=== PATIENT | female | born 1945 | race Caucasian/White ===

== ENCOUNTER → 2016-12-05 | Outpatient (CLI) | payer MEDICARE ==
[2016-09-04 00:10] VITALS: BP 160/77
[~2016-12-05] MED LIST: ALPR1TAB6 PO; BARIUM SULFATE 40% 148 GM PWD PO ONE; BARIUM SULFATE 60% 355 ML SUSP PO ONE; CEPH-264 PO; FLUO20CA8 PO; FLUO40CA2 PO; METF500T4 PO; THYR120T PO
--- NOTE | 2016-12-05 14:07 | RAD ---
EXAM: Modified barium swallow. HISTORY: Dysphagia. FINDINGS: Barium contrast material was administered orally and multiple consistencies under the direction of speech pathology, and followed in its course during swallowing with video fluoroscopy. A fluoroscopic image and multiple videofluoroscopic clips were obtained. Fluoroscopy time 2.4 minutes. There was transient laryngeal penetration with thin liquids, worse with a straw. There was no gross aspiration with any consistency. IMPRESSION: 1. Transient laryngeal penetration with thin liquids. Refer to the full report by speech pathology for more detail.
== END | disposition home or self-care (01) ==
LOC: RAD 12:53
PROVIDERS: ATTEND Family Medicine
DX: R13.10 Dysphagia, unspecified (principal)
CPT/HCPCS: 74230; 92611; G8996; G8997; G8998

== ENCOUNTER 2017-05-17 21:03 | Emergency (ER) | payer MEDICARE ==
[~2017-05-17 21:03] MED LIST changes: -BARIUM SULFATE 40% 148 GM PWD PO ONE; -BARIUM SULFATE 60% 355 ML SUSP PO ONE
[2017-05-17 21:24] LABS: BASO % 0 % (0-3); EOS % 3 % (0-3); HEMATOCRIT 43.8 % (36.0-47.0); HEMOGLOBIN 14.7 g/dL (12.0-15.5); LYMPH # 2.3 x10^3/uL (1.0-4.8); LYMPH % 32 % (24-48); MEAN CORPUSCULAR HEMOGLOBIN 31 pg (25-35); MEAN CORPUSCULAR HGB CONC 34 g/dL (31-37); MEAN CORPUSCULAR VOLUME 91 fL (79-100); MONO % 6 % (0-9); NEUT % 59 % (31-73); PLATELET COUNT 407 x10^3/uL (140-400); RED BLOOD COUNT 4.82 x10^6/uL (3.50-5.40); RED CELL DISTRIBUTION WIDTH 13.7 % (11.5-14.5); WHITE BLOOD COUNT 7.2 x10^3/uL (4.0-11.0)
--- NOTE | 2017-05-17 21:26 | PHYS DOC ---
Past Medical History Past Medical History: Anxiety, Cancer, Diabetes-Type II, Other Additional Past Medical Histor: Thyroid cancer Past Surgical History: Other Additional Past Surgical Histo: Thyroid Alcohol Use: None Drug Use: None Adult General Chief Complaint Chief Complaint: NAUSEA/VOMITING/DIARRHA HPI HPI Patient is a 71 year old female who presents with nausea, vomiting and diarrhea. Started on Sunday with "explosive" diarrhea; multiple stools but patient has taken immodium so the number of stools have tapered off. Had vomiting that is "chronic" and no different than usual. No hemetemsis. No blood in stool. No fever. She has had no chest pain but SOA, coughing and "my heart beating very fast". No syncope. She is followed by Dr Cutler and Dr durant. Review of Systems Review of Systems Constitutional: Denies fever or chills Eyes: Denies change in visual acuity, redness, or eye pain HENT: Denies nasal congestion or sore throat Respiratory: POS cough & shortness of breath Cardiovascular: No chest pain; some palpitations GI: Denies abdominal pain, POS nausea, vomiting (chronic), NO bloody stools; SOME diarrhea : Denies dysuria or hematuria Musculoskeletal: Denies back pain or joint pain Integument: Denies rash or skin lesions Neurologic: Denies headache, focal weakness or sensory changes Current Medications Current Medications Current Medications Medications (Trade) Dose Ordered Sig/Pacheco Start Time Stop Time Status Last Admin Dose Admin Morphine Sulfate 2 mg PRN Q15MIN PRN 05/17/17 21:30 05/18/17 21:29 Ondansetron HCl (Zofran) 4 mg 1X ONCE 05/17/17 21:45 05/17/17 21:46 DC Sodium Chloride 1,000 ml @ 1,000 mls/hr Q1H 05/17/17 21:30 05/17/17 22:29 Allergies Allergies Allergies Coded Allergies Type Severity Reaction Last Updated Verified codeine Allergy Mild Nausea and Vomiting 03/06/16 No Physical Exam Physical Exam Constitutional: Well developed, well nourished, no acute distress, non-toxic appearance. HENT: Normocephalic, atraumatic, bilateral external ears normal, oropharynx moist, no oral exudates, nose normal. Eyes: PERRLA, EOMI, conjunctiva normal, no discharge. Neck: Normal range of motion, no tenderness, supple, no stridor. Cardiovascular:Heart rate tachycardic regular rhythm, no murmur Lungs & Thorax: Bilateral breath sounds clear to auscultation Abdomen: Bowel sounds normal, soft, no tenderness, no masses, no pulsatile masses. Skin: Warm, dry, no erythema, no rash. Back: No tenderness, no CVA tenderness. Extremities: No tenderness, no cyanosis, no clubbing, ROM intact, no edema. Neurologic: Alert and oriented X 3, normal motor function, normal sensory function, no focal deficits noted. Psychologic: Affect normal, judgement normal, mood normal. Current Patient Data Vital Signs Vital Signs Date Time Temp Pulse Resp B/P (MAP) Pulse Ox O2 Delivery O2 Flow Rate FiO2 05/17/17 21:17 98.2 20 175/77 (109) 97 Room Air 98.2 Lab Values Laboratory Tests Test 05/17/17 21:15 White Blood Count 7.2 x10^3/uL (4.0-11.0) Red Blood Count 4.82 x10^6/uL (3.50-5.40) Hemoglobin 14.7 g/dL (12.0-15.5) Hematocrit 43.8 % (36.0-47.0) Mean Corpuscular Volume 91 fL (79-100) Mean Corpuscular Hemoglobin 31 pg (25-35) Mean Corpuscular Hemoglobin Concent 34 g/dL (31-37) Red Cell Distribution Width 13.7 % (11.5-14.5) Platelet Count 407 x10^3/uL (140-400) H Neutrophils (%) (Auto) 59 % (31-73) Lymphocytes (%) (Auto) 32 % (24-48) Monocytes (%) (Auto) 6 % (0-9) Eosinophils (%) (Auto) 3 % (0-3) Basophils (%) (Auto) 0 % (0-3) Neutrophils # (Auto) 4.2 x10^3uL (1.8-7.7) Lymphocytes # (Auto) 2.3 x10^3/uL (1.0-4.8) Monocytes # (Auto) 0.4 x10^3/uL (0.0-1.1) Eosinophils # (Auto) 0.2 x10^3/uL (0.0-0.7) Basophils # (Auto) 0.0 x10^3/uL (0.0-0.2) Sodium Level 144 mmol/L (136-145) Potassium Level 3.9 mmol/L (3.5-5.1) Chloride Level 107 mmol/L (98-107) Carbon Dioxide Level 25 mmol/L (21-32) Anion Gap 12 (6-14) Blood Urea Nitrogen 9 mg/dL (7-20) Creatinine 0.5 mg/dL (0.6-1.0) L Estimated GFR (Cockcroft-Gault) 122.0 Glucose Level 94 mg/dL (70-99) Calcium Level 8.4 mg/dL (8.5-10.1) L Total Bilirubin 0.3 mg/dL (0.2-1.0) Direct Bilirubin 0.1 mg/dL (0.0-0.2) Aspartate Amino Transferase (AST) 25 U/L (15-37) Alanine Aminotransferase (ALT) 47 U/L (14-59) Alkaline Phosphatase 126 U/L (46-116) H Creatine Kinase 79 U/L (26-192) Troponin I Quantitative < 0.017 ng/mL (0.000-0.055) MZ-Owi-F-Type Natriuretic Peptide 51 pg/mL (0-124) Total Protein 7.2 g/dL (6.4-8.2) Albumin 3.9 g/dL (3.4-5.0) Lipase 130 U/L (73-393) Laboratory Tests 05/17/17 21:15 Laboratory Tests 05/17/17 21:15 EKG EKG EKG interpreted by myself at 2119 PM shows NSR, rate 67, nonspecific ST changes ; T waves inverted leads V1, V2 Radiology/Procedures Radiology/Procedures CXR interpreted by myself at 2150 PM: normal cardiac silhouette, no infiltrate, no pleural effusion; normal mediastinum Course & Med Decision Making Course & Med Decision Making Pertinent Labs and Imaging studies reviewed. (See chart for details) Evaluated patient upon arrival. IV NS, IV zofran and IV Morphine. At 2200 PM: reviewed lab and findings w patient and spouse. Concerned about possible cardiac event with her history and her complaints. Both her and her spouse state "I won't stay-I never do." Understand that she will need to sign out AMA and they both understand and agree. Instructed to seek follow up and they understand that if she worsens she will need admission and to plan on that if they return. Dragon Disclaimer Dragon Disclaimer This electronic medical record was generated, in whole or in part, using a voice recognition dictation system. Departure Departure Impression: Primary Impression: Diarrhea Additional Impression: Palpitations Disposition: 07 AGAINST MEDICAL ADVICE Condition: STABLE Referrals: AFSHIN MEJÍA BALLOON PILOT (PCP) Problem Qualifiers Primary Impression: Diarrhea Diarrhea type: unspecified type Qualified Codes: R19.7 - Diarrhea, unspecified GABBI POST MD May 17, 2017 21:26
[2017-05-17] MEDS ORDERED: IV NORMAL SALINE 1000ML BAG 1,000 ML IV SCH (21:30)
[2017-05-17] MEDS ORDERED: MORPHINE SULFATE 2 MG/ML DISP.SYRIN. IV/SQ PRN (21:30)
[2017-05-17 21:34] LABS: CALCIUM 8.4 mg/dL (8.5-10.1); CREATININE 0.5 mg/dL (0.6-1.0); POTASSIUM 3.9 mmol/L (3.5-5.1)
[2017-05-17 21:41] LABS: ALBUMIN 3.9 g/dL (3.4-5.0); DIRECT BILIRUBIN 0.1 mg/dL (0.0-0.2); TOTAL BILIRUBIN 0.3 mg/dL (0.2-1.0); TOTAL PROTEIN 7.2 g/dL (6.4-8.2)
[2017-05-17] MEDS ORDERED: ONDANSETRON PF 4 MG/2 ML VIAL. IV ONE (21:45)
[2017-05-17 22:20] VITALS: BP 140/65
--- NOTE | 2017-05-18 06:19 | EKG ---
[facility] [address] [place] [address] Test Date: 2017-05-17 Test Time: 21:19:47 Pat Name: JEN MURPHY Department: Room: Gender: F Key Person: : 1945 Requested By: GABBI POST Order Number: [id number] Reading MD: Ronna Sheffield Measurements Intervals [place] Rate: 67 P: 37 [place]: 132 QRS: 48 QRSD: 74 T: 55 QT: 402 QTc: 428 Interpretive Statements SINUS RHYTHM NO SPECIFIC ECG ABNORMALITIES Electronically Signed On 05-19-2017 16:13:40 CDT by Ronna Sheffield
--- NOTE | 2017-05-18 07:23 | RAD ---
Chest radiograph 05/17/2017 11:17 PM Indication: Shortness of breath and chest pain Comparison: None available Technique: Single portable upright frontal view of the chest is provided. Findings: Cardiomediastinal silhouette is within normal limits. No pleural effusions, pulmonary vascular congestion or pneumothorax. The lungs are clear. Osseous structures are normal. Impression: No acute cardiopulmonary process.
== END 2017-05-17 22:25 | disposition left against medical advice (07) ==
LOC: ER 21:03
DX: R11.2 Nausea with vomiting, unspecified (principal); R19.7 Diarrhea, unspecified; R00.2 Palpitations; R00.0 Tachycardia, unspecified; R05 Cough; F41.9 Anxiety disorder, unspecified; E11.9 Type 2 diabetes mellitus without complications; Z88.5 Allergy status to narcotic agent
CPT/HCPCS: 36415; 71010; 80048; 80076; 82550; 83690; 83880; 84484; 85025; 93005; 99285-25

== ENCOUNTER 2018-03-11 12:13 | Emergency (ER) | payer MEDICARE | END 2018-03-11 13:25 | disposition home or self-care (01) | LOC: ER 12:13 | DX: L08.89 Other specified local infections of the skin and subcutaneous tissue (principal); E11.9 Type 2 diabetes mellitus without complications; Z88.5 Allergy status to narcotic agent | CPT/HCPCS: 99283 ==

== ENCOUNTER 2020-05-22 11:00 | Inpatient (IN) | payer MEDICARE ==
[~2020-05-22] VITALS: Ht 162.6 cm; Wt 69.1 kg
[~2020-05-22 11:00] MED LIST changes: +FLUO20CA20 PO; -FLUO20CA8 PO; +METF500T16 PO; -METF500T4 PO
--- NOTE | 2020-05-22 11:15 | PHYS DOC ---
Past Medical History Past Medical History: Anxiety, Cancer, Diabetes-Type II, Other Additional Past Medical Histor: Thyroid cancer Past Surgical History: Other Additional Past Surgical Histo: Thyroid Smoking Status: Never Smoker Alcohol Use: None Drug Use: None General Adult EDM: Chief Complaint: SEIZURE HPI: HPI: Patient is a 74 year old female who presents for evaluation for multiple seiz ures over last 24 hours. Patient is unable to give history but per EMS and her who called the ER patient has had 5 generalized tonic-clonic seizures over the last 24 hours. Patient has a history of seizures but her usually associated with being out of her Xanax of which she takes up to 8 mg a day. Her states that she has not stopped taking her Xanax. Her history and physical review of systems is limited by her altered mental status and unable to answer questions Review of Systems: Review of Systems: Review of systems is unobtainable due to altered mental status Heart Score: Risk Factors: Risk Factors: DM, Current or recent (<one month) smoker, HTN, HLP, family history of CAD, obesity. Risk Scores: Score 0 - 3: 2.5% MACE over next 6 weeks - Discharge Home Score 4 - 6: 20.3% MACE over next 6 weeks - Admit for Clinical Observation Score 7 - 10: 72.7% MACE over next 6 weeks - Early Invasive Strategies Allergies: Allergies: Allergies Coded Allergies Type Severity Reaction Last Updated Verified codeine Allergy Mild Nausea and Vomiting 03/06/16 No Physical Exam: PE: Constitutional: Well developed, well nourished, mild distress HENT: Normocephalic, bilateral external ears normal, superficial laceration to the left lower lip Eyes: PERRLA, EOMI, conjunctiva normal, no discharge. [] Neck: Normal range of motion, no tenderness, supple, no stridor. [] Cardiovascular: Tachycardia, regular rhythm, peripheral pulses intact, cap refill brisk Lungs & Thorax: Bilateral breath sounds clear no respiratory distress Abdomen: Bowel sounds normal, soft, no tenderness, no masses, no pulsatile masses. [] Skin: Warm, dry, no erythema, no rash. [] Back: No tenderness, no CVA tenderness. [] Extremities: No tenderness, no cyanosis, no clubbing, ROM intact, no edema. [] Neurologic: Alert and oriented X 0, moves all extremities but does not follow commands Psychologic: Unable to assess Current Patient Data: Labs: Laboratory Tests Test 05/22/20 11:00 05/22/20 11:10 Urine Collection Type Unknown Urine Color Yellow Urine Clarity Clear Urine pH 5.5 Urine Specific [place] 1.025 Urine Protein 100 mg/dL Urine Glucose (UA) 250 mg/dL Urine Ketones (Stick) >=80 mg/dL Urine Blood Trace Urine Nitrite Negative Urine Bilirubin Negative Urine Urobilinogen Dipstick 1.0 mg/dL Urine Leukocyte Esterase Negative Urine RBC 3-5 /HPF Urine WBC 1-4 /HPF Urine Squamous Epithelial Cells Few /LPF Urine Amorphous Sediment Present /HPF Urine Bacteria 0 /HPF Urine Hyaline Casts Moderate /HPF Urine Mucus Mod /LPF Urine Yeast Present /HPF Urine Opiates Screen Neg Urine Methadone Screen Neg Urine Barbiturates Neg Urine Phencyclidine Screen Neg Urine Amphetamine/Methamphetamine Neg Urine Benzodiazepines Screen Pos Urine Cocaine Screen Neg Urine Cannabinoids Screen Neg Urine Ethyl Alcohol Neg White Blood Count 11.7 x10^3/uL Red Blood Count 4.85 x10^6/uL Hemoglobin 14.3 g/dL Hematocrit 41.4 % Mean Corpuscular Volume 85 fL Mean Corpuscular Hemoglobin 30 pg Mean Corpuscular Hemoglobin Concent 35 g/dL Red Cell Distribution Width 12.7 % Platelet Count 430 x10^3/uL Neutrophils (%) (Auto) 91 % Lymphocytes (%) (Auto) 7 % Monocytes (%) (Auto) 2 % Eosinophils (%) (Auto) 0 % Basophils (%) (Auto) 0 % Neutrophils # (Auto) 10.7 x10^3/uL Lymphocytes # (Auto) 0.8 x10^3/uL Monocytes # (Auto) 0.2 x10^3/uL Eosinophils # (Auto) 0.0 x10^3/uL Basophils # (Auto) 0.0 x10^3/uL Segmented Neutrophils % 88 % Band Neutrophils % 2 % Lymphocytes % 7 % Monocytes % 3 % Platelet Estimate Increased Prothrombin Time 13.9 SEC Prothromb Time International Ratio 1.1 Activated Partial Thromboplast Time 28 SEC Sodium Level 137 mmol/L Potassium Level 3.5 mmol/L Chloride Level 98 mmol/L Carbon Dioxide Level 25 mmol/L Anion Gap 14 Blood Urea Nitrogen 10 mg/dL Creatinine 0.7 mg/dL Estimated GFR (Cockcroft-Gault) 82.0 BUN/Creatinine Ratio 14 Glucose Level 167 mg/dL Calcium Level 8.7 mg/dL Total Bilirubin 0.6 mg/dL Aspartate Amino Transf (AST/SGOT) 18 U/L Alanine Aminotransferase (ALT/SGPT) 27 U/L Alkaline Phosphatase 64 U/L Troponin I Quantitative < 0.017 ng/mL Total Protein 8.1 g/dL Albumin 4.2 g/dL Albumin/Globulin Ratio 1.1 Thyroid Stimulating Hormone (TSH) < 0.007 uIU/mL Ethyl Alcohol Level < 10 mg/dL Current Medications Medications (Trade) Dose Ordered Sig/Pacheco Route PRN Reason Start Time Stop Time Status Last Admin Dose Admin Ondansetron HCl (Zofran) 4 mg 1X ONCE IVP 05/22/20 12:45 05/22/20 12:46 Vital Signs: Vital Signs Date Time Temp Pulse Resp B/P (MAP) Pulse Ox O2 Delivery O2 Flow Rate FiO2 05/22/20 11:16 98.3 110 22 155/74 (101) 95 Room Air 98.3 EKG: EKG: EKG interpreted by ks sinus tachycardia with a rate of 117 normal axis normal intervals nonspecific ST changes [] Radiology/Procedures: Radiology/Procedures: [][address] [address] IMAGING REPORT Signed PATIENT: JEN MURPHY ACCOUNT: [id number] : 1945 LOCATION: ER AGE: 74 SEX: F EXAM STATUS: PRE ER ORD. PHYSICIAN: LEE CABAN MD REASON: seizures PROCEDURE: PORTABLE CHEST 1V EXAM: Chest, single view. HISTORY: Seizure. COMPARISON: 05/17/2017 FINDINGS: A frontal view of the chest is obtained. There is stable linear scarring within the lateral left lower thorax. There is no consolidation, pleural effusion or pneumothorax. The heart is normal in size. There is chronic deformity of the left humeral head and neck. IMPRESSION: No acute pulmonary finding. Electronically signed by: Indy Monteiro MD (05/22/2020 11:34 AM) [facility] DICTATED and SIGNED BY: INDY MONTEIRO MD DATE: 05/22/[address] [place] [address] IMAGING REPORT Signed PATIENT: JEN MURPHY ACCOUNT: [id number] : 1945 LOCATION: ER AGE: 74 SEX: F EXAM STATUS: PRE ER ORD. PHYSICIAN: LEE CABAN MD REASON: seizures PROCEDURE: CT HEAD WO CONTRAST CT HEAD WO CONTRAST Date: 05/22/2020 11:11 AM Clinical Indication: seizures / Spl. Instructions: / History: Comparison: 09/06/2016. Technique: 5 mm axial tomographic images were obtained of the head without contrast. These were viewed on brain and bone windows. One or more of the following dose reduction techniques were utilized: Automated exposure control (AEC), Adjustment of mA and/or kV according to patient size, Use of iterative reconstruction technique such as ASiR, CT scan done according to ALARA and image gently/image wisely Findings: Mild generalized cerebral and cerebellar volume loss. Mild nonspecific periventricular hypoattenuation, most commonly seen with chronic small vessel ischemic disease. Calcified atherosclerosis of the bilateral cavernous and paraclinoid internal carotid arteries and intracranial vertebral arteries. No intra- or extra-axial mass or fluid collection. No acute hemorrhage. The ventricles are normal in size, shape, and morphology. The calderon-white matter junction is normal. The subarachnoid cisterns are patent. The visualized paranasal sinuses are normal. The visualized portions of the orbits and globes are normal. The mastoid air cells are clear. The clay thrower topogram shows no lytic lesion or fracture. Impression: No acute intracranial process. Mild cerebral volume loss. Mild chronic small vessel ischemic disease. Electronically signed by: Moustapha Urrutia MD (05/22/2020 11:52 AM) [id number] DICTATED and SIGNED BY: MOUSTAPHA URRUTIA MD DATE: 05/22/20 1152 Course & Med Decision Making: Course & Med Decision Making Pertinent Labs and Imaging studies reviewed. (See chart for details) [] 74-year-old female presents with recurrent seizures. Patient still encephalopathic in the ER. Patient still postictal. Is does not appear that she has withdrawing from her benzos although she has had withdrawals in the past with occult seizures. I will give her some benzos here and admit her to the hospital with a neuro consult. Of note her TSH is extremely low and according t o her chart she has a history of thyroid cancer . Discussed with Dr. Chew at 1257 who will admit Mike Disclaimer: Mike Disclaimer: This electronic medical record was generated, in whole or in part, using a voice recognition dictation system. Departure Departure Impression: Primary Impression: Seizures Disposition: ADMITTED INPATIENT Admitting Physician: BEN RICHARDSON) Condition: GUARDED Referrals: MATHEUS GUILLEN MD (PCP) Justicifation of Admission Dx: Justifications for Admission: Justification of Admission Dx: Yes LEE CABAN MD May 22, 2020 11:15
[2020-05-22 11:24] LABS: BASO % 0 % (0-3); EOS % 0 % (0-3); HEMATOCRIT 41.4 % (36.0-47.0); HEMOGLOBIN 14.3 g/dL (12.0-15.5); LYMPH # 0.8 x10^3/uL (1.0-4.8); LYMPH % 7 % (24-48); MEAN CORPUSCULAR HEMOGLOBIN 30 pg (25-35); MEAN CORPUSCULAR HGB CONC 35 g/dL (31-37); MEAN CORPUSCULAR VOLUME 85 fL (79-100); MONO # 0.2 x10^3/uL (0.0-1.1); MONO % 2 % (0-9); NEUT # 10.7 x10^3/uL (1.8-7.7); NEUT % 91 % (31-73); PLATELET COUNT 430 x10^3/uL (140-400); RED BLOOD COUNT 4.85 x10^6/uL (3.50-5.40); RED CELL DISTRIBUTION WIDTH 12.7 % (11.5-14.5); WHITE BLOOD COUNT 11.7 x10^3/uL (4.0-11.0)
[2020-05-22 11:27] LABS: BILIRUBIN,URINE NEGATIVE (NEG); CLARITY,URINE CLEAR; COLOR,URINE YELLOW; NITRITE,URINE NEGATIVE (NEG); PH,URINE 5.5 (<5.0-8.0); PROTEIN,URINE 100 mg/dL (NEG-TRACE)
[2020-05-22 11:37] LABS: PROTHROMBIN TIME PATIENT 13.9 SEC (11.7-14.0)
--- NOTE | 2020-05-22 11:37 | RAD ---
EXAM: Chest, single view. HISTORY: Seizure. COMPARISON: 05/17/2017 FINDINGS: A frontal view of the chest is obtained. There is stable linear scarring within the lateral left lower thorax. There is no consolidation, pleural effusion or pneumothorax. The heart is normal in size. There is chronic deformity of the left humeral head and neck. IMPRESSION: No acute pulmonary finding. Electronically signed by: Indy Hernandez MD (05/22/2020 11:34 AM) [facility]
[2020-05-22 11:38] LABS: BARBITURATES NEG (NEG); BENZODIAZEPINES POS (NEG); CANNABINOIDS NEG (NEG); COCAINE NEG (NEG); METHADONE NEG (NEG); OPIATES NEG (NEG); PHENCYCLIDINE NEG (NEG)
[2020-05-22 11:39] LABS: AMPHETAMINE/METHAMPHETAMINE NEG (NEG)
[2020-05-22 11:42] LABS: CALCIUM 8.7 mg/dL (8.5-10.1); CREATININE 0.7 mg/dL (0.6-1.0); POTASSIUM 3.5 mmol/L (3.5-5.1)
[2020-05-22 11:44] LABS: ALBUMIN 4.2 g/dL (3.4-5.0); ALBUMIN/GLOBULIN RATIO 1.1 (1.0-1.7); TOTAL BILIRUBIN 0.6 mg/dL (0.2-1.0); TOTAL PROTEIN 8.1 g/dL (6.4-8.2)
[2020-05-22 11:47] LABS: AMORPHOUS SEDIMENT,UR PRESENT /HPF; BACTERIA,URINE 0 /HPF (0-FEW); HYALINE CASTS, URINE MODERATE /HPF; SQUAMOUS EPITHELIAL CELL,UR FEW /LPF
[2020-05-22 11:48] LABS: YEAST,URINE PRESENT /HPF
--- NOTE | 2020-05-22 11:55 | RAD ---
CT HEAD WO CONTRAST Date: 05/22/2020 11:11 AM Clinical Indication: seizures / Spl. Instructions: / History: Comparison: 09/06/2016. Technique: 5 mm axial tomographic images were obtained of the head without contrast. These were viewed on brain and bone windows. One or more of the following dose reduction techniques were utilized: Automated exposure control (AEC), Adjustment of mA and/or kV according to patient size, Use of iterative reconstruction technique such as ASiR, CT scan done according to ALARA and image gently/image wisely Findings: Mild generalized cerebral and cerebellar volume loss. Mild nonspecific periventricular hypoattenuation, most commonly seen with chronic small vessel ischemic disease. Calcified atherosclerosis of the bilateral cavernous and paraclinoid internal carotid arteries and intracranial vertebral arteries. No intra- or extra-axial mass or fluid collection. No acute hemorrhage. The ventricles are normal in size, shape, and morphology. The calderon-white matter junction is normal. The subarachnoid cisterns are patent. The visualized paranasal sinuses are normal. The visualized portions of the orbits and globes are normal. The mastoid air cells are clear. The mortgage operations manager topogram shows no lytic lesion or fracture. Impression: No acute intracranial process. Mild cerebral volume loss. Mild chronic small vessel ischemic disease. Electronically signed by: Jorge Urrutia MD (05/22/2020 11:52 AM) [id number]
[2020-05-22 12:27] LABS: % BANDS 2 % (0-9); % LYMPHS 7 % (24-48); % MONOS 3 % (0-10); % SEGS 88 % (35-66)
[2020-05-22 12:29] LABS: PLT ESTIMATE INCREASED (ADEQUATE)
[2020-05-22] MEDS ORDERED: ONDANSETRON PF 4 MG/2 ML VIAL. IVP ONE (12:45)
[2020-05-22] MEDS: IV NORMAL SALINE 1000ML BAG 1,000 ML IV SCH ×2 (12:57→21:30)
[2020-05-22] MEDS ORDERED: ONDANSETRON PF 4 MG/2 ML VIAL. IV PRN ×2 (13:00)
[2020-05-22 14:00] VITALS: BP 149/76
[2020-05-22] MEDS ORDERED: levETIRAcetam 1,000 MG in IV DEXTROSE 5% 100ML 100 ML IV ONE (15:00)
[2020-05-22 15:25] VITALS: BP 140/85
--- NOTE | 2020-05-22 15:41 | PDOC1 ---
History and Physical Date of Admission Date of Admission DATE: 05/22/20 TIME: 15:20 Identification/Chief Complaint Chief Complaint Seizure Source Source: Patient History of Present Illness History of Present Illness Mr Kevin is a 74 yo F PMHx thyroid cancer (s/p resection 1984), anxiety who presents for evaluation for multiple seizures over last 24 hours. Patient is unable to give history but per EMS and her who called the ER patient has had 5 generalized tonic-clonic seizures over the last 24 hours. Patient has a history of seizures but her usually associated with being out of her Xanax of which she takes up to 8 mg a day. She previously took 12mg per day for almost 30 years. She does tell me that "He tells me I'm going to in [place]". 05/20/2020 she started acting strangely in the evening and has been complaining of memory loss. Her states that she has not stopped taking her Xanax, but has changed to taking "most of them" at night to sleep. Her history and physical review of systems is limited by her altered mental status and unable to answer questions. Her supplements the history by telling me at 0100 on morning she awoke suddenly and told her she is going to in 2 days. "He told me I'm going to ". She did just start trazodone 100mg on 04/19/2020 and Prozac 40mg 2 years. EKG appears to be sinus tachycardia with rate 117 bpm with corrected QT C of 473, normal intervals and axes otherwise no ST segment changes no T wave inversion. CT head negative for acute abnormalities. CXR with left lateral linear scarring but no acute changes from prior chest x-ray. She did have a seizure previously at 2016 at [facility] in [place] and underwent EEG that showed no epileptiform activity at that time. She was started on Keppra and continued on her Xanax. It was felt to be due to Xanax withdrawal at that time. Her seizures were so severe at the time that she actually dislodged her maxillary dental bridge and required emergency maxillofacial surgery. She also was noted to have multiple PVCs and was seen by cardiology at that time. No history of arrhythmia. Labs significant for WBC 11.7, Hb 14.3, platelets 430, INR 1.1, TSH less than 0.007, NA 132, K3.5, BUN 10, TSH 0.7, glucose 167, troponin 0 Admitted for further care Past Medical History Past Medical History palpitations of 40 years' duration, anxiety disorder, depression, diabetes mellitus, recurrent panic attacks, chronic insomnia, hypothyroidism. Cardiovascular: HTN CENTRAL NERVOUS SYSTEM: Seizure Psych: Anxiety, Depression Endocrine: Diabetes, Hypothyroidism Past Surgical History Past Surgical History: Hysterectomy, Other (Thyroidectomy) Family History Family History Both parents and brother are . Has 1 son Family History: High Cholestrol, Hypertension Family History: Parent () Social History Smoke: Quit (2014) ALCOHOL: occassional Drugs: None Current Problem List Problem List Problems Medical Problems: (1) Seizures Status: Acute Current Medications Current Medications Current Medications Ondansetron HCl (Zofran) 4 mg 1X ONCE IVP Last administered on 05/22/20at 12:57; Start 05/22/20 at 12:45; Stop 05/22/20 at 12:46; Status DC Lorazepam (Ativan Inj) 1 mg PRN Q4HRS PRN IVP ANXIETY / AGITATION Last administered on 05/22/20at 12:57; Start 05/22/20 at 13:00; Stop 05/22/20 at 13: 02; Status DC Ondansetron HCl (Zofran) 4 mg PRN Q8HRS PRN IV NAUSEA/VOMITING; Start 05/22/20 at 13:00; Stop 05/22/20 at 13:00; Status DC Sodium Chloride 1,000 ml @ 100 mls/hr Q10H IV Last administered on 05/22/20at 12:57; Start 05/22/20 at 12:47; Stop 05/23/20 at 12:46 Ondansetron HCl (Zofran) 4 mg PRN Q4HRS PRN IV NAUSEA/VOMITING; Start 05/22/20 at 13:00 Lorazepam (Ativan Inj) 2 mg 1X ONCE IVP Last administered on 05/22/20at 13:17; Start 05/22/20 at 13:15; Stop 05/22/20 at 13:16; Status DC Metformin HCl (Glucophage) 500 mg BIDWMEALS PO ; Start 05/22/20 at 17:00 Alprazolam (Xanax) 2 mg Q6HRS PO ; Start 05/22/20 at 18:00 Fluoxetine HCl (PROzac) 40 mg DAILYWBKFT PO ; Start 05/23/20 at 08:00 Thyroid ([place] Thyroid) 180 mg DAILY06 PO ; Start 05/23/20 at 06:00 Trazodone HCl (Desyrel) 100 mg HS PO ; Start 05/22/20 at 21:00 Levetiracetam 1000 mg/Dextrose 110 ml @ 750 mls/hr 1X ONCE IV ; Start 05/22/20 at 15:00; Stop 05/22/20 at 15:08; Status DC Levetiracetam 500 mg/Dextrose 105 ml @ 420 mls/hr Q12H IV ; Start 05/23/20 at 03:30 Active Scripts Active Keflex (Cephalexin) 500 Mg Capsule 1 Cap PO TID Keflex (Cephalexin) 500 Mg Capsule 500 Mg PO QID 10 Days Reported Metformin Hcl 500 Mg Tablet 500 Mg PO BIDWMEALS [place] Thyroid (Thyroid,Pork) 120 Mg Tablet 120 Mg PO DAILY Alprazolam 1 Mg Tablet 1 Mg PO TID PRN Allergies Allergies: Coded Allergies: codeine (Unverified Allergy, Mild, Nausea and Vomiting, 03/06/16) pt states "Any pain pills make me vomit" ROS Review of System Unable to complete due to confusion Physical Exam General: Alert, Cooperative, mild distress HEENT: Atraumatic, PERRLA, EOMI, Mucous membr. moist/pink, Other (Tongue bit) Lungs: Clear to auscultation, Normal air movement Heart: S1S2, RRR, no thrills, no rubs, no gallops, no murmurs Abdomen: Normal bowel sounds, Soft, No tenderness, No hepatosplenomegaly, No masses Extremities: No clubbing, No cyanosis, No edema, Normal pulses, No tenderness/swelling Skin: No rashes, No breakdown, No significant lesion Neuro: Normal speech, Strength at 5/5 X4 ext, Normal tone, Sensation intact, Cranial nerves 3-12 NL, Reflexes 2+ Psych/Mental Status: Other (Confused, disoriented) Vitals Vitals Vital Signs Date Time Temp Pulse Resp B/P (MAP) Pulse Ox O2 Delivery O2 Flow Rate FiO2 05/22/20 12:55 108 22 95 05/22/20 11:16 98.3 155/74 (101) Room Air 98.3 Labs Labs Laboratory Tests Test 05/22/20 11:00 05/22/20 11:10 Urine Collection Type Unknown Urine Color Yellow Urine Clarity Clear Urine pH 5.5 (<5.0-8.0) Urine Specific [place] 1.025 (1.000-1.030) Urine Protein 100 mg/dL (NEG-TRACE) Urine Glucose (UA) 250 mg/dL (NEG) Urine Ketones (Stick) >=80 mg/dL (NEG) Urine Blood Trace (NEG) Urine Nitrite Negative (NEG) Urine Bilirubin Negative (NEG) Urine Urobilinogen Dipstick 1.0 mg/dL (0.2 mg/dL) Urine Leukocyte Esterase Negative (NEG) Urine RBC 3-5 /HPF (0-2) Urine WBC 1-4 /HPF (0-4) Urine Squamous Epithelial Cells Few /LPF Urine Amorphous Sediment Present /HPF Urine Bacteria 0 /HPF (0-FEW) Urine Hyaline Casts Moderate /HPF Urine Mucus Mod /LPF Urine Yeast Present /HPF Urine Opiates Screen Neg (NEG) Urine Methadone Screen Neg (NEG) Urine Barbiturates Neg (NEG) Urine Phencyclidine Screen Neg (NEG) Urine Amphetamine/Methamphetamine Neg (NEG) Urine Benzodiazepines Screen Pos (NEG) Urine Cocaine Screen Neg (NEG) Urine Cannabinoids Screen Neg (NEG) Urine Ethyl Alcohol Neg (NEG) White Blood Count 11.7 x10^3/uL (4.0-11.0) Red Blood Count 4.85 x10^6/uL (3.50-5.40) Hemoglobin 14.3 g/dL (12.0-15.5) Hematocrit 41.4 % (36.0-47.0) Mean Corpuscular Volume 85 fL (79-100) Mean Corpuscular Hemoglobin 30 pg (25-35) Mean Corpuscular Hemoglobin Concent 35 g/dL (31-37) Red Cell Distribution Width 12.7 % (11.5-14.5) Platelet Count 430 x10^3/uL (140-400) Neutrophils (%) (Auto) 91 % (31-73) Lymphocytes (%) (Auto) 7 % (24-48) Monocytes (%) (Auto) 2 % (0-9) Eosinophils (%) (Auto) 0 % (0-3) Basophils (%) (Auto) 0 % (0-3) Neutrophils # (Auto) 10.7 x10^3/uL (1.8-7.7) Lymphocytes # (Auto) 0.8 x10^3/uL (1.0-4.8) Monocytes # (Auto) 0.2 x10^3/uL (0.0-1.1) Eosinophils # (Auto) 0.0 x10^3/uL (0.0-0.7) Basophils # (Auto) 0.0 x10^3/uL (0.0-0.2) Segmented Neutrophils % 88 % (35-66) Band Neutrophils % 2 % (0-9) Lymphocytes % 7 % (24-48) Monocytes % 3 % (0-10) Platelet Estimate Increased (ADEQUATE) Prothrombin Time 13.9 SEC (11.7-14.0) Prothromb Time International Ratio 1.1 (0.8-1.1) Activated Partial Thromboplast Time 28 SEC (24-38) Sodium Level 137 mmol/L (136-145) Potassium Level 3.5 mmol/L (3.5-5.1) Chloride Level 98 mmol/L (98-107) Carbon Dioxide Level 25 mmol/L (21-32) Anion Gap 14 (6-14) Blood Urea Nitrogen 10 mg/dL (7-20) Creatinine 0.7 mg/dL (0.6-1.0) Estimated GFR (Cockcroft-Gault) 82.0 BUN/Creatinine Ratio 14 (6-20) Glucose Level 167 mg/dL (70-99) Calcium Level 8.7 mg/dL (8.5-10.1) Total Bilirubin 0.6 mg/dL (0.2-1.0) Aspartate Amino Transf (AST/SGOT) 18 U/L (15-37) Alanine Aminotransferase (ALT/SGPT) 27 U/L (14-59) Alkaline Phosphatase 64 U/L (46-116) Troponin I Quantitative < 0.017 ng/mL (0.000-0.055) Total Protein 8.1 g/dL (6.4-8.2) Albumin 4.2 g/dL (3.4-5.0) Albumin/Globulin Ratio 1.1 (1.0-1.7) Thyroid Stimulating Hormone (TSH) < 0.007 uIU/mL (0.358-3.74) Ethyl Alcohol Level < 10 mg/dL (0-10) Laboratory Tests Test 05/22/20 11:00 05/22/20 11:10 Urine Collection Type Unknown Urine Color Yellow Urine Clarity Clear Urine pH 5.5 (<5.0-8.0) Urine Specific [place] 1.025 (1.000-1.030) Urine Protein 100 mg/dL (NEG-TRACE) Urine Glucose (UA) 250 mg/dL (NEG) Urine Ketones (Stick) >=80 mg/dL (NEG) Urine Blood Trace (NEG) Urine Nitrite Negative (NEG) Urine Bilirubin Negative (NEG) Urine Urobilinogen Dipstick 1.0 mg/dL (0.2 mg/dL) Urine Leukocyte Esterase Negative (NEG) Urine RBC 3-5 /HPF (0-2) Urine WBC 1-4 /HPF (0-4) Urine Squamous Epithelial Cells Few /LPF Urine Amorphous Sediment Present /HPF Urine Bacteria 0 /HPF (0-FEW) Urine Hyaline Casts Moderate /HPF Urine Mucus Mod /LPF Urine Yeast Present /HPF Urine Opiates Screen Neg (NEG) Urine Methadone Screen Neg (NEG) Urine Barbiturates Neg (NEG) Urine Phencyclidine Screen Neg (NEG) Urine Amphetamine/Methamphetamine Neg (NEG) Urine Benzodiazepines Screen Pos (NEG) Urine Cocaine Screen Neg (NEG) Urine Cannabinoids Screen Neg (NEG) Urine Ethyl Alcohol Neg (NEG) White Blood Count 11.7 x10^3/uL (4.0-11.0) Red Blood Count 4.85 x10^6/uL (3.50-5.40) Hemoglobin 14.3 g/dL (12.0-15.5) Hematocrit 41.4 % (36.0-47.0) Mean Corpuscular Volume 85 fL (79-100) Mean Corpuscular Hemoglobin 30 pg (25-35) Mean Corpuscular Hemoglobin Concent 35 g/dL (31-37) Red Cell Distribution Width 12.7 % (11.5-14.5) Platelet Count 430 x10^3/uL (140-400) Neutrophils (%) (Auto) 91 % (31-73) Lymphocytes (%) (Auto) 7 % (24-48) Monocytes (%) (Auto) 2 % (0-9) Eosinophils (%) (Auto) 0 % (0-3) Basophils (%) (Auto) 0 % (0-3) Neutrophils # (Auto) 10.7 x10^3/uL (1.8-7.7) Lymphocytes # (Auto) 0.8 x10^3/uL (1.0-4.8) Monocytes # (Auto) 0.2 x10^3/uL (0.0-1.1) Eosinophils # (Auto) 0.0 x10^3/uL (0.0-0.7) Basophils # (Auto) 0.0 x10^3/uL (0.0-0.2) Segmented Neutrophils % 88 % (35-66) Band Neutrophils % 2 % (0-9) Lymphocytes % 7 % (24-48) Monocytes % 3 % (0-10) Platelet Estimate Increased (ADEQUATE) Prothrombin Time 13.9 SEC (11.7-14.0) Prothromb Time International Ratio 1.1 (0.8-1.1) Activated Partial Thromboplast Time 28 SEC (24-38) Sodium Level 137 mmol/L (136-145) Potassium Level 3.5 mmol/L (3.5-5.1) Chloride Level 98 mmol/L (98-107) Carbon Dioxide Level 25 mmol/L (21-32) Anion Gap 14 (6-14) Blood Urea Nitrogen 10 mg/dL (7-20) Creatinine 0.7 mg/dL (0.6-1.0) Estimated GFR (Cockcroft-Gault) 82.0 BUN/Creatinine Ratio 14 (6-20) Glucose Level 167 mg/dL (70-99) Calcium Level 8.7 mg/dL (8.5-10.1) Total Bilirubin 0.6 mg/dL (0.2-1.0) Aspartate Amino Transf (AST/SGOT) 18 U/L (15-37) Alanine Aminotransferase (ALT/SGPT) 27 U/L (14-59) Alkaline Phosphatase 64 U/L (46-116) Troponin I Quantitative < 0.017 ng/mL (0.000-0.055) Total Protein 8.1 g/dL (6.4-8.2) Albumin 4.2 g/dL (3.4-5.0) Albumin/Globulin Ratio 1.1 (1.0-1.7) Thyroid Stimulating Hormone (TSH) < 0.007 uIU/mL (0.358-3.74) Ethyl Alcohol Level < 10 mg/dL (0-10) Images Images CXR: A frontal view of the chest is obtained. There is stable linear scarring within the lateral left lower thorax. There is no consolidation, pleural effusion or pneumothorax. The heart is normal in size. There is chronic deformity of the left humeral head and neck. IMPRESSION: No acute pulmonary finding. CT head w/o contrast: Mild generalized cerebral and cerebellar volume loss. Mild nonspecific periventricular hypoattenuation, most commonly seen with chronic small vessel ischemic disease. Calcified atherosclerosis of the bilateral cavernous and paraclinoid internal carotid arteries and intracranial vertebral arteries. No intra- or extra-axial mass or fluid collection. No acute hemorrhage. The ventricles are normal in size, shape, and morphology. The calderon-white matter junction is normal. The subarachnoid cisterns are patent. The visualized paranasal sinuses are normal. The visualized portions of the orbits and globes are normal. The mastoid air cells are clear. The supervisor mirror fabrication topogram shows no lytic lesion or fracture. Impression: No acute intracranial process. Mild cerebral volume loss. Mild chronic small vessel ischemic disease. VTE Prophylaxis Ordered VTE Prophylaxis Devices: Contraindicated VTE Pharmacological Prophylaxi: Yes Assessment/Plan Assessment/Plan A/P: Acute encephalopathy - likely post-ictal given her seizures, her TSH is also undetectable, however if she is s/p thyroidectomy she does need suppressive dosing, will change to levothyroxine 1.75mcg/kg and round up to 137mcg, stop armour thyroid. Consult neurology. Seizure precautions New onset seizures - likely 2/2 xanax dosing as she mostly takes doses at night. Has been recently reduced from 12mg total per day to 8mg total per day. Started on keppra IV. Consult neurology. Unfortunately, she must continue on xanax and have prolonged taper, consult psych Delusional behavior - patient notes she has been speaking with an entity the past 48 hours that has told her she is going to in 2 days and has been in preparation for this Hypertension - cont meds Palpitations - telemetry Diabetes mellitus - sliding scale. Will hold metformin in the event she may require CT angiogram with contrast Hypothyroidism s/p thyroidectomy - 35 years ago to levothyroxine 137 mcg for her own safety as [place] Thyroid does not have discrete amounts of T3 or T4 and can be variable and is inappropriate therapy for total thyroid function suppression after a thyroidectomy for thyroid cancer. 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
--- NOTE | 2020-05-22 15:52 | EKG ---
[facility] [address] [place] [address] Test Date: 2020-05-22 Test Time: 11:12:18 Pat Name: JEN MURPHY Department: Room: Gender: F [employer]: : 1945 Requested By: LEE CABAN Order Number: [id number] Reading MD: Measurements Intervals [place] Rate: 117 P: -27 AL: 126 QRS: 56 QRSD: 80 T: 57 QT: 336 QTc: 473 Interpretive Statements SINUS TACHYCARDIA NO SPECIFIC ECG ABNORMALITIES RI6.02 No previous ECG available for comparison
[2020-05-22] MEDS ORDERED: levETIRAcetam 750 MG in IV DEXTROSE 5% 100ML 100 ML IV ONE (16:00)
[2020-05-22] MEDS ORDERED: DEXTROSE 50% 25 GM / 50ML DISP.SYRIN. IV PRN (16:15)
[2020-05-22] MEDS: INSULIN LISPRO 300 UNITS/3 ML VIAL. SQ SCH ×2 (16:30→21:00)
[2020-05-22] MEDS ORDERED: metFORMIN 500 MG TABLET PO SCH (17:00)
[2020-05-22] MEDS: ACETAMINOPHEN 325 MG TABLET. PO PRN (17:36)
[2020-05-22] MEDS: LIDO:MAALOX:BENADRYL 1:1:1 180 ML BOTTLE. PO PRN (17:37)
[2020-05-22] MEDS: ENOXAPARIN 40 MG/0.4 ML SYRINGE. SQ SCH (17:37)
[2020-05-22] MEDS ORDERED: ALPRAZolam 1 MG TABLET PO SCH (18:00)
[2020-05-22 19:43] VITALS: BP 135/72
[2020-05-22] MEDS: PSYLLIUM HUSK (SUGAR FREE) 1 PKT PACKET PO SCH (21:29)
[2020-05-22] MEDS: ALPRAZolam 1 MG TABLET PO PRN (21:29)
[2020-05-22] MEDS: traZODone 100 MG TABLET. PO SCH (21:29)
[2020-05-22] MEDS: levETIRAcetam 500 MG in IV DEXTROSE 5% 100ML 100 ML IV SCH (21:34)
[2020-05-22 22:53] VITALS: BP 142/69
[2020-05-23 03:20] VITALS: BP 150/65
[2020-05-23] MEDS: LEVOTHYROXINE 137 MCG TABLET PO SCH (05:29)
[2020-05-23] MEDS ORDERED: THYROID,PORK 60 MG TABLET PO SCH (06:00)
[2020-05-23 06:02] LABS: BASO % 1 % (0-3); EOS % 1 % (0-3); HEMATOCRIT 36.3 % (36.0-47.0); HEMOGLOBIN 12.4 g/dL (12.0-15.5); LYMPH # 1.5 x10^3/uL (1.0-4.8); LYMPH % 23 % (24-48); MEAN CORPUSCULAR HEMOGLOBIN 30 pg (25-35); MEAN CORPUSCULAR HGB CONC 34 g/dL (31-37); MEAN CORPUSCULAR VOLUME 87 fL (79-100); MONO # 0.6 x10^3/uL (0.0-1.1); MONO % 10 % (0-9); NEUT # 4.3 x10^3/uL (1.8-7.7); NEUT % 67 % (31-73); PLATELET COUNT 352 x10^3/uL (140-400); RED BLOOD COUNT 4.18 x10^6/uL (3.50-5.40); RED CELL DISTRIBUTION WIDTH 12.8 % (11.5-14.5); WHITE BLOOD COUNT 6.5 x10^3/uL (4.0-11.0)
[2020-05-23 06:12] LABS: CALCIUM 8.1 mg/dL (8.5-10.1); CREATININE 0.4 mg/dL (0.6-1.0); GFR 156.5; POTASSIUM 3.2 mmol/L (3.5-5.1)
[2020-05-23 06:21] LABS: ALBUMIN 3.4 g/dL (3.4-5.0); ALBUMIN/GLOBULIN RATIO 1.3 (1.0-1.7); TOTAL PROTEIN 6.1 g/dL (6.4-8.2)
[2020-05-23 06:22] LABS: TOTAL BILIRUBIN 0.4 mg/dL (0.2-1.0)
[2020-05-23 07:00] VITALS: BP 137/62
[2020-05-23] MEDS: INSULIN LISPRO 300 UNITS/3 ML VIAL. SQ SCH ×4 (07:30→21:00)
[2020-05-23] MEDS: IV NORMAL SALINE 1000ML BAG 1,000 ML IV SCH (08:47)
[2020-05-23] MEDS: LIDO:MAALOX:BENADRYL 1:1:1 180 ML BOTTLE. PO PRN (09:20)
[2020-05-23] MEDS: FLUoxetine HCL 20 MG CAPSULE PO SCH (09:20)
[2020-05-23 10:55] VITALS: BP 160/68
--- NOTE | 2020-05-23 11:19 | PDOC2 ---
CONSULT Date of Consult Date of Consult DATE: 05/23/20 TIME: 11:19 Reason for Consult Reason for Consult: seizures Identification/Chief Complaint Chief Complaint seizures History of Present Illness Reason for Visit: This patient is 74-year-old man with past medical history of thyroid cancer anxiety, patient had episodes concerning for seizure activity with the episodes of jerking in her extremities are associated with postictal confusion tongue bite. Patient has previously been on Xanax. Patient is having her toes adjusted. Patient denies any difficulty speaking tingling numbness on the face. Patient denies any complaint of focal extremity weakness. Patient denies any complaint of headache nausea or vomiting chest pain shortness of breath CT brain did not show any evidence of acute intracranial etiology changes noted for cerebral volume loss, chronic small vessel ischemic disease Past Medical History Cardiovascular: HTN CENTRAL NERVOUS SYSTEM: Seizure Psych: Anxiety, Depression Endocrine: Diabetes, Hypothyroidism Past Surgical History Past Surgical History: Hysterectomy, Other (Thyroidectomy) Family History Family History: High Cholestrol, Hypertension Social History Social History: Parent () Quit (2014) ALCOHOL: occassional Drugs: None Current Problem List Problem List Problems Medical Problems: (1) Seizures Status: Acute Current Medications Current Medications Current Medications Ondansetron HCl (Zofran) 4 mg 1X ONCE IVP Last administered on 05/22/20at 12:57; Start 05/22/20 at 12:45; Stop 05/22/20 at 12:46; Status DC Lorazepam (Ativan Inj) 1 mg PRN Q4HRS PRN IVP ANXIETY / AGITATION Last administered on 05/22/20at 12:57; Start 05/22/20 at 13:00; Stop 05/22/20 at 13:02; Status DC Ondansetron HCl (Zofran) 4 mg PRN Q8HRS PRN IV NAUSEA/VOMITING; Start 05/22/20 at 13:00; Stop 05/22/20 at 13:00; Status DC Sodium Chloride 1,000 ml @ 100 mls/hr Q10H IV Last administered on 05/23/20at 08:47; Start 05/22/20 at 12:47; Stop 05/23/20 at 12:46 Ondansetron HCl (Zofran) 4 mg PRN Q4HRS PRN IV NAUSEA/VOMITING; Start 05/22/20 at 13:00 Lorazepam (Ativan Inj) 2 mg 1X ONCE IVP Last administered on 05/22/20at 13:17; Start 05/22/20 at 13:15; Stop 05/22/20 at 13:16; Status DC Metformin HCl (Glucophage) 500 mg BIDWMEALS PO ; Start 05/22/20 at 17:00; Stop 05/22/20 at 16:37; Status DC Alprazolam (Xanax) 2 mg Q6HRS PO ; Start 05/22/20 at 18:00; Stop 05/22/20 at 15:29; Status DC Fluoxetine HCl (PROzac) 40 mg DAILYWBKFT PO Last administered on 05/23/20at 09:20; Start 05/23/20 at 08:00 Thyroid ([place] Thyroid) 180 mg DAILY06 PO ; Start 05/23/20 at 06:00; Stop 05/22/20 at 15:39; Status DC Trazodone HCl (Desyrel) 100 mg HS PO Last administered on 05/22/20at 21:29; Start 05/22/20 at 21:00 Levetiracetam 1000 mg/Dextrose 110 ml @ 750 mls/hr 1X ONCE IV ; Start 05/22/20 at 15:00; Stop 05/22/20 at 15:08; Status Cancel Levetiracetam 500 mg/Dextrose 105 ml @ 420 mls/hr Q12H IV Last administered on 05/22/20at 21:34; Start 05/23/20 at 03:30 Alprazolam (Xanax) 1 mg TID PRN PO ANXIETY / AGITATION Last administered on 05/22/20at 21:29; Start 05/22/20 at 15:30 Levothyroxine Sodium (Synthroid) 137 mcg DAILY06 PO Last administered on 05/23/20at 05:29; Start 05/23/20 at 06:00 Enoxaparin Sodium (Lovenox 40mg Syringe) 40 mg Q24H SQ Last administered on 05/22/20at 17:37; Start 05/22/20 at 17:00 Levetiracetam 750 mg/Dextrose 107.5 ml @ 440 mls/hr 1X ONCE IV Last administered on 05/22/20at 16:11; Start 05/22/20 at 16:00; Stop 05/22/20 at 16:14; Status DC Insulin Human Lispro (HumaLOG) 0-7 UNITS TIDACHC SQ ; Start 05/22/20 at 16:30 Dextrose (Dextrose 50%-Water Syringe) 12.5 gm PRN Q15MIN PRN IV SEE COMMENTS; Start 05/22/20 at 16:15 Psyllium Hydrophilic Mucilloid (Metamucil Fiber Packet) 1 pkt QHS PO Last administered on 05/22/20at 21:29; Start 05/22/20 at 21:00 Acetaminophen (Tylenol) 650 mg PRN Q6HRS PRN PO MILD PAIN / TEMP > 100.3'F Last administered on 05/22/20at 17:36; Start 05/22/20 at 16:15 Multi-Ingredient Mouthwash/Gargle (Magic Mouthwash) 10 ml PRN QID PRN PO MOUTH PAIN Last administered on 05/23/20at 09:20; Start 05/22/20 at 16:15 Active Scripts Active Keflex (Cephalexin) 500 Mg Capsule 1 Cap PO TID Keflex (Cephalexin) 500 Mg Capsule 500 Mg PO QID 10 Days Reported Metformin Hcl 500 Mg Tablet 500 Mg PO BIDWMEALS [place] Thyroid (Thyroid,Pork) 120 Mg Tablet 120 Mg PO DAILY Alprazolam 1 Mg Tablet 1 Mg PO TID PRN Allergies Allergies: Coded Allergies: codeine (Unverified Allergy, Mild, Nausea and Vomiting, 03/06/16) pt states "Any pain pills make me vomit" Physical Exam Physical Exam General no acute distress. HEENT: Normocephalic and atraumatic. Tounge bit NECK: Supple without bruit Respiratory: Clear to auscultation bilaterally Heart: Regular rate and rhythm, S1S2 normal NEUROLOGIC: Mental status Alert able to tell her name Right month no meningeal signs. Cranial nerve equally reactive pupils, and intact extraocular movements. No facial asymmetry. Palate elevates and tongue protrudes in midline. Reflexes are 1-2 with flexor plantar responses. Coordination no dysmetria Strength able to move all exts equally. Sensory exam is intact for light touch and pinprick. Gait in bed. A 10-point review of systems was obtained. Other than the history of present illness the remainder of the review of systems is negative. Vitals VITALS Vital Signs Date Time Temp Pulse Resp B/P (MAP) Pulse Ox O2 Delivery O2 Flow Rate FiO2 05/23/20 10:55 98.7 78 18 160/68 (98) 96 Room Air 98.7 Labs Labs Laboratory Tests Test 05/22/20 11:00 05/22/20 11:10 05/22/20 16:48 05/22/20 21:06 Urine Collection Type Unknown Urine Color Yellow Urine Clarity Clear Urine pH 5.5 (<5.0-8.0) Urine Specific [place] 1.025 (1.000-1.030) Urine Protein 100 mg/dL (NEG-TRACE) Urine Glucose (UA) 250 mg/dL (NEG) Urine Ketones (Stick) >=80 mg/dL (NEG) Urine Blood Trace (NEG) Urine Nitrite Negative (NEG) Urine Bilirubin Negative (NEG) Urine Urobilinogen Dipstick 1.0 mg/dL (0.2 mg/dL) Urine Leukocyte Esterase Negative (NEG) Urine RBC 3-5 /HPF (0-2) Urine WBC 1-4 /HPF (0-4) Urine Squamous Epithelial Cells Few /LPF Urine Amorphous Sediment Present /HPF Urine Bacteria 0 /HPF (0-FEW) Urine Hyaline Casts Moderate /HPF Urine Mucus Mod /LPF Urine Yeast Present /HPF Urine Opiates Screen Neg (NEG) Urine Methadone Screen Neg (NEG) Urine Barbiturates Neg (NEG) Urine Phencyclidine Screen Neg (NEG) Urine Amphetamine/Methamphetamine Neg (NEG) Urine Benzodiazepines Screen Pos (NEG) Urine Cocaine Screen Neg (NEG) Urine Cannabinoids Screen Neg (NEG) Urine Ethyl Alcohol Neg (NEG) White Blood Count 11.7 x10^3/uL (4.0-11.0) Red Blood Count 4.85 x10^6/uL (3.50-5.40) Hemoglobin 14.3 g/dL (12.0-15.5) Hematocrit 41.4 % (36.0-47.0) Mean Corpuscular Volume 85 fL (79-100) Mean Corpuscular Hemoglobin 30 pg (25-35) Mean Corpuscular Hemoglobin Concent 35 g/dL (31-37) Red Cell Distribution Width 12.7 % (11.5-14.5) Platelet Count 430 x10^3/uL (140-400) Neutrophils (%) (Auto) 91 % (31-73) Lymphocytes (%) (Auto) 7 % (24-48) Monocytes (%) (Auto) 2 % (0-9) Eosinophils (%) (Auto) 0 % (0-3) Basophils (%) (Auto) 0 % (0-3) Neutrophils # (Auto) 10.7 x10^3/uL (1.8-7.7) Lymphocytes # (Auto) 0.8 x10^3/uL (1.0-4.8) Monocytes # (Auto) 0.2 x10^3/uL (0.0-1.1) Eosinophils # (Auto) 0.0 x10^3/uL (0.0-0.7) Basophils # (Auto) 0.0 x10^3/uL (0.0-0.2) Segmented Neutrophils % 88 % (35-66) Band Neutrophils % 2 % (0-9) Lymphocytes % 7 % (24-48) Monocytes % 3 % (0-10) Platelet Estimate Increased (ADEQUATE) Prothrombin Time 13.9 SEC (11.7-14.0) Prothromb Time International Ratio 1.1 (0.8-1.1) Activated Partial Thromboplast Time 28 SEC (24-38) Sodium Level 137 mmol/L (136-145) Potassium Level 3.5 mmol/L (3.5-5.1) Chloride Level 98 mmol/L (98-107) Carbon Dioxide Level 25 mmol/L (21-32) Anion Gap 14 (6-14) Blood Urea Nitrogen 10 mg/dL (7-20) Creatinine 0.7 mg/dL (0.6-1.0) Estimated GFR (Cockcroft-Gault) 82.0 BUN/Creatinine Ratio 14 (6-20) Glucose Level 167 mg/dL (70-99) Calcium Level 8.7 mg/dL (8.5-10.1) Magnesium Level 2.1 mg/dL (1.8-2.4) Total Bilirubin 0.6 mg/dL (0.2-1.0) Aspartate Amino Transf (AST/SGOT) 18 U/L (15-37) Alanine Aminotransferase (ALT/SGPT) 27 U/L (14-59) Alkaline Phosphatase 64 U/L (46-116) Troponin I Quantitative < 0.017 ng/mL (0.000-0.055) Total Protein 8.1 g/dL (6.4-8.2) Albumin 4.2 g/dL (3.4-5.0) Albumin/Globulin Ratio 1.1 (1.0-1.7) Thyroid Stimulating Hormone (TSH) < 0.007 uIU/mL (0.358-3.74) Free Thyroxine 1.27 ng/dL (0.76-1.46) Ethyl Alcohol Level < 10 mg/dL (0-10) Glucose (Fingerstick) 169 mg/dL (70-99) 119 mg/dL (70-99) Test 05/23/20 05:00 05/23/20 07:49 White Blood Count 6.5 x10^3/uL (4.0-11.0) Red Blood Count 4.18 x10^6/uL (3.50-5.40) Hemoglobin 12.4 g/dL (12.0-15.5) Hematocrit 36.3 % (36.0-47.0) Mean Corpuscular Volume 87 fL (79-100) Mean Corpuscular Hemoglobin 30 pg (25-35) Mean Corpuscular Hemoglobin Concent 34 g/dL (31-37) Red Cell Distribution Width 12.8 % (11.5-14.5) Platelet Count 352 x10^3/uL (140-400) Neutrophils (%) (Auto) 67 % (31-73) Lymphocytes (%) (Auto) 23 % (24-48) Monocytes (%) (Auto) 10 % (0-9) Eosinophils (%) (Auto) 1 % (0-3) Basophils (%) (Auto) 1 % (0-3) Neutrophils # (Auto) 4.3 x10^3/uL (1.8-7.7) Lymphocytes # (Auto) 1.5 x10^3/uL (1.0-4.8) Monocytes # (Auto) 0.6 x10^3/uL (0.0-1.1) Eosinophils # (Auto) 0.0 x10^3/uL (0.0-0.7) Basophils # (Auto) 0.0 x10^3/uL (0.0-0.2) Sodium Level 144 mmol/L (136-145) Potassium Level 3.2 mmol/L (3.5-5.1) Chloride Level 106 mmol/L (98-107) Carbon Dioxide Level 25 mmol/L (21-32) Anion Gap 13 (6-14) Blood Urea Nitrogen 7 mg/dL (7-20) Creatinine 0.4 mg/dL (0.6-1.0) Estimated GFR (Cockcroft-Gault) 156.5 BUN/Creatinine Ratio 18 (6-20) Glucose Level 101 mg/dL (70-99) Calcium Level 8.1 mg/dL (8.5-10.1) Total Bilirubin 0.4 mg/dL (0.2-1.0) Aspartate Amino Transf (AST/SGOT) 17 U/L (15-37) Alanine Aminotransferase (ALT/SGPT) 26 U/L (14-59) Alkaline Phosphatase 47 U/L (46-116) Total Protein 6.1 g/dL (6.4-8.2) Albumin 3.4 g/dL (3.4-5.0) Albumin/Globulin Ratio 1.3 (1.0-1.7) Glucose (Fingerstick) 93 mg/dL (70-99) Laboratory Tests Test 05/22/20 16:48 05/22/20 21:06 05/23/20 05:00 05/23/20 07:49 Glucose (Fingerstick) 169 mg/dL (70-99) 119 mg/dL (70-99) 93 mg/dL (70-99) White Blood Count 6.5 x10^3/uL (4.0-11.0) Red Blood Count 4.18 x10^6/uL (3.50-5.40) Hemoglobin 12.4 g/dL (12.0-15.5) Hematocrit 36.3 % (36.0-47.0) Mean Corpuscular Volume 87 fL (79-100) Mean Corpuscular Hemoglobin 30 pg (25-35) Mean Corpuscular Hemoglobin Concent 34 g/dL (31-37) Red Cell Distribution Width 12.8 % (11.5-14.5) Platelet Count 352 x10^3/uL (140-400) Neutrophils (%) (Auto) 67 % (31-73) Lymphocytes (%) (Auto) 23 % (24-48) Monocytes (%) (Auto) 10 % (0-9) Eosinophils (%) (Auto) 1 % (0-3) Basophils (%) (Auto) 1 % (0-3) Neutrophils # (Auto) 4.3 x10^3/uL (1.8-7.7) Lymphocytes # (Auto) 1.5 x10^3/uL (1.0-4.8) Monocytes # (Auto) 0.6 x10^3/uL (0.0-1.1) Eosinophils # (Auto) 0.0 x10^3/uL (0.0-0.7) Basophils # (Auto) 0.0 x10^3/uL (0.0-0.2) Sodium Level 144 mmol/L (136-145) Potassium Level 3.2 mmol/L (3.5-5.1) Chloride Level 106 mmol/L (98-107) Carbon Dioxide Level 25 mmol/L (21-32) Anion Gap 13 (6-14) Blood Urea Nitrogen 7 mg/dL (7-20) Creatinine 0.4 mg/dL (0.6-1.0) Estimated GFR (Cockcroft-Gault) 156.5 BUN/Creatinine Ratio 18 (6-20) Glucose Level 101 mg/dL (70-99) Calcium Level 8.1 mg/dL (8.5-10.1) Total Bilirubin 0.4 mg/dL (0.2-1.0) Aspartate Amino Transf (AST/SGOT) 17 U/L (15-37) Alanine Aminotransferase (ALT/SGPT) 26 U/L (14-59) Alkaline Phosphatase 47 U/L (46-116) Total Protein 6.1 g/dL (6.4-8.2) Albumin 3.4 g/dL (3.4-5.0) Albumin/Globulin Ratio 1.3 (1.0-1.7) Assessment/Plan Assessment/Plan This patient is 74-year-old man with past medical history of thyroid cancer anxiety, patient had episodes concerning for seizure activity with the episodes of jerking in her extremities are associated with postictal confusion tongue bite. Patient has previously been on Xanax. Patient is having her toes adjusted. Patient denies any difficulty speaking tingling numbness on the face. Patient denies any complaint of focal extremity weakness. Patient denies any complaint of headache nausea or vomiting chest pain shortness of breath CT brain did not show any evidence of acute intracranial etiology changes noted for cerebral volume loss, chronic small vessel ischemic disease Encephalopathy with the seizure episode patient required loading dose of Keppra. Patient has been started on Keppra 500 mg twice a day. Anxiety depression Patient had her Xanax dosing titrated requiring higher doses. CT brain did not show any evidence of acute intracranial etiology changes noted for cerebral volume loss, chronic small vessel ischemic diseaseWill hold off on further brain imaging. History of anxiety depression psych recommendations. Diabetes, hypertension, hypothyroidism continue treat and monitor. Continue medical management. Seizure precautions discussed at length.Plan discussed at length TIFFANY LAZAR MD May 23, 2020 11:19
[2020-05-23 15:03] VITALS: BP 153/70
[2020-05-23] MEDS: ALPRAZolam 1 MG TABLET PO PRN (15:23)
[2020-05-23] MEDS: levETIRAcetam 500 MG in IV DEXTROSE 5% 100ML 100 ML IV SCH (15:25)
--- NOTE | 2020-05-23 15:44 | PDOC ---
PROGRESS NOTES Date of Service: DATE: 05/23/20 TIME: 15:42 Chief Complaint Chief Complaint Acute encephalopathy - likely post-ictal given her seizures, her TSH is also undetectable, however if she is s/p thyroidectomy she does need suppressive dosing, will change to levothyroxine 1.75mcg/kg and round up to 137mcg, stop armour thyroid. Consult neurology. Seizure precautions New onset seizures - likely 2/2 xanax dosing as she mostly takes doses at night. Has been recently reduced from 12mg total per day to 8mg total per day. Started on keppra IV. Consult neurology. Unfortunately, she must continue on xanax and have prolonged taper, consult psych Delusional behavior - patient notes she has been speaking with an entity the past 48 hours that has told her she is going to in 2 days and has been in preparation for this Hypertension - cont meds Palpitations - telemetry Diabetes mellitus - sliding scale. Will hold metformin in the event she may re quire CT angiogram with contrast Hypothyroidism s/p thyroidectomy - 35 years ago to levothyroxine 137 mcg for her own safety as [place] Thyroid does not have discrete amounts of T3 or T4 and can be variable and is inappropriate therapy for total thyroid function suppression after a thyroidectomy for thyroid cancer. 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 Hypokalemia - will replace, check mag FEN - ADAT PPX - Lovenox FULL CODE Dispo - inpatient for at least 2 midnights Vitals Vitals Vital Signs Date Time Temp Pulse Resp B/P (MAP) Pulse Ox O2 Delivery O2 Flow Rate FiO2 05/23/20 15:03 98.9 83 18 153/70 (97) 97 Room Air 98.9 Physical Exam General: Alert, Cooperative, mild distress Abdomen: Normal bowel sounds, Soft, No tenderness, No hepatosplenomegaly, No masses Extremities: No clubbing, No cyanosis, No edema, Normal pulses, No tenderness/swelling Skin: No rashes, No breakdown, No significant lesion Labs LABS Laboratory Tests Test 05/22/20 16:48 05/22/20 21:06 05/23/20 05:00 05/23/20 07:49 Glucose (Fingerstick) 169 mg/dL (70-99) 119 mg/dL (70-99) 93 mg/dL (70-99) White Blood Count 6.5 x10^3/uL (4.0-11.0) Red Blood Count 4.18 x10^6/uL (3.50-5.40) Hemoglobin 12.4 g/dL (12.0-15.5) Hematocrit 36.3 % (36.0-47.0) Mean Corpuscular Volume 87 fL (79-100) Mean Corpuscular Hemoglobin 30 pg (25-35) Mean Corpuscular Hemoglobin Concent 34 g/dL (31-37) Red Cell Distribution Width 12.8 % (11.5-14.5) Platelet Count 352 x10^3/uL (140-400) Neutrophils (%) (Auto) 67 % (31-73) Lymphocytes (%) (Auto) 23 % (24-48) Monocytes (%) (Auto) 10 % (0-9) Eosinophils (%) (Auto) 1 % (0-3) Basophils (%) (Auto) 1 % (0-3) Neutrophils # (Auto) 4.3 x10^3/uL (1.8-7.7) Lymphocytes # (Auto) 1.5 x10^3/uL (1.0-4.8) Monocytes # (Auto) 0.6 x10^3/uL (0.0-1.1) Eosinophils # (Auto) 0.0 x10^3/uL (0.0-0.7) Basophils # (Auto) 0.0 x10^3/uL (0.0-0.2) Sodium Level 144 mmol/L (136-145) Potassium Level 3.2 mmol/L (3.5-5.1) Chloride Level 106 mmol/L (98-107) Carbon Dioxide Level 25 mmol/L (21-32) Anion Gap 13 (6-14) Blood Urea Nitrogen 7 mg/dL (7-20) Creatinine 0.4 mg/dL (0.6-1.0) Estimated GFR (Cockcroft-Gault) 156.5 BUN/Creatinine Ratio 18 (6-20) Glucose Level 101 mg/dL (70-99) Calcium Level 8.1 mg/dL (8.5-10.1) Total Bilirubin 0.4 mg/dL (0.2-1.0) Aspartate Amino Transf (AST/SGOT) 17 U/L (15-37) Alanine Aminotransferase (ALT/SGPT) 26 U/L (14-59) Alkaline Phosphatase 47 U/L (46-116) Total Protein 6.1 g/dL (6.4-8.2) Albumin 3.4 g/dL (3.4-5.0) Albumin/Globulin Ratio 1.3 (1.0-1.7) Test 05/23/20 11:30 Glucose (Fingerstick) 105 mg/dL (70-99) Assessment and Plan Assessmemt and Plan Problems Medical Problems: (1) Seizures Status: Acute Comment Review of Relevant I have reviewed the following items buck (where applicable) has been applied. Labs Laboratory Tests Test 05/22/20 11:00 05/22/20 11:10 05/22/20 16:48 05/22/20 21:06 Urine Collection Type Unknown Urine Color Yellow Urine Clarity Clear Urine pH 5.5 (<5.0-8.0) Urine Specific [place] 1.025 (1.000-1.030) Urine Protein 100 mg/dL (NEG-TRACE) Urine Glucose (UA) 250 mg/dL (NEG) Urine Ketones (Stick) >=80 mg/dL (NEG) Urine Blood Trace (NEG) Urine Nitrite Negative (NEG) Urine Bilirubin Negative (NEG) Urine Urobilinogen Dipstick 1.0 mg/dL (0.2 mg/dL) Urine Leukocyte Esterase Negative (NEG) Urine RBC 3-5 /HPF (0-2) Urine WBC 1-4 /HPF (0-4) Urine Squamous Epithelial Cells Few /LPF Urine Amorphous Sediment Present /HPF Urine Bacteria 0 /HPF (0-FEW) Urine Hyaline Casts Moderate /HPF Urine Mucus Mod /LPF Urine Yeast Present /HPF Urine Opiates Screen Neg (NEG) Urine Methadone Screen Neg (NEG) Urine Barbiturates Neg (NEG) Urine Phencyclidine Screen Neg (NEG) Urine Amphetamine/Methamphetamine Neg (NEG) Urine Benzodiazepines Screen Pos (NEG) Urine Cocaine Screen Neg (NEG) Urine Cannabinoids Screen Neg (NEG) Urine Ethyl Alcohol Neg (NEG) White Blood Count 11.7 x10^3/uL (4.0-11.0) Red Blood Count 4.85 x10^6/uL (3.50-5.40) Hemoglobin 14.3 g/dL (12.0-15.5) Hematocrit 41.4 % (36.0-47.0) Mean Corpuscular Volume 85 fL (79-100) Mean Corpuscular Hemoglobin 30 pg (25-35) Mean Corpuscular Hemoglobin Concent 35 g/dL (31-37) Red Cell Distribution Width 12.7 % (11.5-14.5) Platelet Count 430 x10^3/uL (140-400) Neutrophils (%) (Auto) 91 % (31-73) Lymphocytes (%) (Auto) 7 % (24-48) Monocytes (%) (Auto) 2 % (0-9) Eosinophils (%) (Auto) 0 % (0-3) Basophils (%) (Auto) 0 % (0-3) Neutrophils # (Auto) 10.7 x10^3/uL (1.8-7.7) Lymphocytes # (Auto) 0.8 x10^3/uL (1.0-4.8) Monocytes # (Auto) 0.2 x10^3/uL (0.0-1.1) Eosinophils # (Auto) 0.0 x10^3/uL (0.0-0.7) Basophils # (Auto) 0.0 x10^3/uL (0.0-0.2) Segmented Neutrophils % 88 % (35-66) Band Neutrophils % 2 % (0-9) Lymphocytes % 7 % (24-48) Monocytes % 3 % (0-10) Platelet Estimate Increased (ADEQUATE) Prothrombin Time 13.9 SEC (11.7-14.0) Prothromb Time International Ratio 1.1 (0.8-1.1) Activated Partial Thromboplast Time 28 SEC (24-38) Sodium Level 137 mmol/L (136-145) Potassium Level 3.5 mmol/L (3.5-5.1) Chloride Level 98 mmol/L (98-107) Carbon Dioxide Level 25 mmol/L (21-32) Anion Gap 14 (6-14) Blood Urea Nitrogen 10 mg/dL (7-20) Creatinine 0.7 mg/dL (0.6-1.0) Estimated GFR (Cockcroft-Gault) 82.0 BUN/Creatinine Ratio 14 (6-20) Glucose Level 167 mg/dL (70-99) Calcium Level 8.7 mg/dL (8.5-10.1) Magnesium Level 2.1 mg/dL (1.8-2.4) Total Bilirubin 0.6 mg/dL (0.2-1.0) Aspartate Amino Transf (AST/SGOT) 18 U/L (15-37) Alanine Aminotransferase (ALT/SGPT) 27 U/L (14-59) Alkaline Phosphatase 64 U/L (46-116) Troponin I Quantitative < 0.017 ng/mL (0.000-0.055) Total Protein 8.1 g/dL (6.4-8.2) Albumin 4.2 g/dL (3.4-5.0) Albumin/Globulin Ratio 1.1 (1.0-1.7) Thyroid Stimulating Hormone (TSH) < 0.007 uIU/mL (0.358-3.74) Free Thyroxine 1.27 ng/dL (0.76-1.46) Ethyl Alcohol Level < 10 mg/dL (0-10) Glucose (Fingerstick) 169 mg/dL (70-99) 119 mg/dL (70-99) Test 05/23/20 05:00 05/23/20 07:49 05/23/20 11:30 White Blood Count 6.5 x10^3/uL (4.0-11.0) Red Blood Count 4.18 x10^6/uL (3.50-5.40) Hemoglobin 12.4 g/dL (12.0-15.5) Hematocrit 36.3 % (36.0-47.0) Mean Corpuscular Volume 87 fL (79-100) Mean Corpuscular Hemoglobin 30 pg (25-35) Mean Corpuscular Hemoglobin Concent 34 g/dL (31-37) Red Cell Distribution Width 12.8 % (11.5-14.5) Platelet Count 352 x10^3/uL (140-400) Neutrophils (%) (Auto) 67 % (31-73) Lymphocytes (%) (Auto) 23 % (24-48) Monocytes (%) (Auto) 10 % (0-9) Eosinophils (%) (Auto) 1 % (0-3) Basophils (%) (Auto) 1 % (0-3) Neutrophils # (Auto) 4.3 x10^3/uL (1.8-7.7) Lymphocytes # (Auto) 1.5 x10^3/uL (1.0-4.8) Monocytes # (Auto) 0.6 x10^3/uL (0.0-1.1) Eosinophils # (Auto) 0.0 x10^3/uL (0.0-0.7) Basophils # (Auto) 0.0 x10^3/uL (0.0-0.2) Sodium Level 144 mmol/L (136-145) Potassium Level 3.2 mmol/L (3.5-5.1) Chloride Level 106 mmol/L (98-107) Carbon Dioxide Level 25 mmol/L (21-32) Anion Gap 13 (6-14) Blood Urea Nitrogen 7 mg/dL (7-20) Creatinine 0.4 mg/dL (0.6-1.0) Estimated GFR (Cockcroft-Gault) 156.5 BUN/Creatinine Ratio 18 (6-20) Glucose Level 101 mg/dL (70-99) Calcium Level 8.1 mg/dL (8.5-10.1) Total Bilirubin 0.4 mg/dL (0.2-1.0) Aspartate Amino Transf (AST/SGOT) 17 U/L (15-37) Alanine Aminotransferase (ALT/SGPT) 26 U/L (14-59) Alkaline Phosphatase 47 U/L (46-116) Total Protein 6.1 g/dL (6.4-8.2) Albumin 3.4 g/dL (3.4-5.0) Albumin/Globulin Ratio 1.3 (1.0-1.7) Glucose (Fingerstick) 93 mg/dL (70-99) 105 mg/dL (70-99) Laboratory Tests Test 05/22/20 16:48 05/22/20 21:06 05/23/20 05:00 05/23/20 07:49 Glucose (Fingerstick) 169 mg/dL (70-99) 119 mg/dL (70-99) 93 mg/dL (70-99) White Blood Count 6.5 x10^3/uL (4.0-11.0) Red Blood Count 4.18 x10^6/uL (3.50-5.40) Hemoglobin 12.4 g/dL (12.0-15.5) Hematocrit 36.3 % (36.0-47.0) Mean Corpuscular Volume 87 fL (79-100) Mean Corpuscular Hemoglobin 30 pg (25-35) Mean Corpuscular Hemoglobin Concent 34 g/dL (31-37) Red Cell Distribution Width 12.8 % (11.5-14.5) Platelet Count 352 x10^3/uL (140-400) Neutrophils (%) (Auto) 67 % (31-73) Lymphocytes (%) (Auto) 23 % (24-48) Monocytes (%) (Auto) 10 % (0-9) Eosinophils (%) (Auto) 1 % (0-3) Basophils (%) (Auto) 1 % (0-3) Neutrophils # (Auto) 4.3 x10^3/uL (1.8-7.7) Lymphocytes # (Auto) 1.5 x10^3/uL (1.0-4.8) Monocytes # (Auto) 0.6 x10^3/uL (0.0-1.1) Eosinophils # (Auto) 0.0 x10^3/uL (0.0-0.7) Basophils # (Auto) 0.0 x10^3/uL (0.0-0.2) Sodium Level 144 mmol/L (136-145) Potassium Level 3.2 mmol/L (3.5-5.1) Chloride Level 106 mmol/L (98-107) Carbon Dioxide Level 25 mmol/L (21-32) Anion Gap 13 (6-14) Blood Urea Nitrogen 7 mg/dL (7-20) Creatinine 0.4 mg/dL (0.6-1.0) Estimated GFR (Cockcroft-Gault) 156.5 BUN/Creatinine Ratio 18 (6-20) Glucose Level 101 mg/dL (70-99) Calcium Level 8.1 mg/dL (8.5-10.1) Total Bilirubin 0.4 mg/dL (0.2-1.0) Aspartate Amino Transf (AST/SGOT) 17 U/L (15-37) Alanine Aminotransferase (ALT/SGPT) 26 U/L (14-59) Alkaline Phosphatase 47 U/L (46-116) Total Protein 6.1 g/dL (6.4-8.2) Albumin 3.4 g/dL (3.4-5.0) Albumin/Globulin Ratio 1.3 (1.0-1.7) Test 05/23/20 11:30 Glucose (Fingerstick) 105 mg/dL (70-99) Microbiology 05/22/20 Blood Culture - Preliminary, Resulted NO GROWTH AFTER 1 DAY Medications Current Medications Ondansetron HCl (Zofran) 4 mg 1X ONCE IVP Last administered on 05/22/20at 12:57; Start 05/22/20 at 12:45; Stop 05/22/20 at 12:46; Status DC Lorazepam (Ativan Inj) 1 mg PRN Q4HRS PRN IVP ANXIETY / AGITATION Last administered on 05/22/20at 12:57; Start 05/22/20 at 13:00; Stop 05/22/20 at 13:02; Status DC Ondansetron HCl (Zofran) 4 mg PRN Q8HRS PRN IV NAUSEA/VOMITING; Start 05/22/20 at 13:00; Stop 05/22/20 at 13:00; Status DC Sodium Chloride 1,000 ml @ 100 mls/hr Q10H IV Last administered on 05/23/20at 08:47; Start 05/22/20 at 12:47; Stop 05/23/20 at 12:46; Status DC Ondansetron HCl (Zofran) 4 mg PRN Q4HRS PRN IV NAUSEA/VOMITING; Start 05/22/20 at 13:00 Lorazepam (Ativan Inj) 2 mg 1X ONCE IVP Last administered on 05/22/20at 13:17; Start 05/22/20 at 13:15; Stop 05/22/20 at 13:16; Status DC Metformin HCl (Glucophage) 500 mg BIDWMEALS PO ; Start 05/22/20 at 17:00; Stop 05/22/20 at 16:37; Status DC Alprazolam (Xanax) 2 mg Q6HRS PO ; Start 05/22/20 at 18:00; Stop 05/22/20 at 15:29; Status DC Fluoxetine HCl (PROzac) 40 mg DAILYWBKFT PO Last administered on 05/23/20at 09:20; Start 05/23/20 at 08:00 Thyroid ([place] Thyroid) 180 mg DAILY06 PO ; Start 05/23/20 at 06:00; Stop 05/22/20 at 15:39; Status DC Trazodone HCl (Desyrel) 100 mg HS PO Last administered on 05/22/20at 21:29; Start 05/22/20 at 21:00 Levetiracetam 1000 mg/Dextrose 110 ml @ 750 mls/hr 1X ONCE IV ; Start 05/22/20 at 15:00; Stop 05/22/20 at 15:08; Status Cancel Levetiracetam 500 mg/Dextrose 105 ml @ 420 mls/hr Q12H IV Last administered on 05/23/20at 15:25; Start 05/23/20 at 03:30 Alprazolam (Xanax) 1 mg TID PRN PO ANXIETY / AGITATION Last administered on at 15:23; Start 05/22/20 at 15:30 Levothyroxine Sodium (Synthroid) 137 mcg DAILY06 PO Last administered on 05/23/20at 05:29; Start 05/23/20 at 06:00 Enoxaparin Sodium (Lovenox 40mg Syringe) 40 mg Q24H SQ Last administered on 05/22/20at 17:37; Start 05/22/20 at 17:00 Levetiracetam 750 mg/Dextrose 107.5 ml @ 440 mls/hr 1X ONCE IV Last administered on 05/22/20at 16:11; Start 05/22/20 at 16:00; Stop 05/22/20 at 16:14; Status DC Insulin Human Lispro (HumaLOG) 0-7 UNITS TIDACHC SQ ; Start 05/22/20 at 16:30 Dextrose (Dextrose 50%-Water Syringe) 12.5 gm PRN Q15MIN PRN IV SEE COMMENTS; Start 05/22/20 at 16:15 Psyllium Hydrophilic Mucilloid (Metamucil Fiber Packet) 1 pkt QHS PO Last administered on 05/22/20at 21:29; Start 05/22/20 at 21:00 Acetaminophen (Tylenol) 650 mg PRN Q6HRS PRN PO MILD PAIN / TEMP > 100.3'F Last administered on 05/22/20at 17:36; Start 05/22/20 at 16:15 Multi-Ingredient Mouthwash/Gargle (Magic Mouthwash) 10 ml PRN QID PRN PO MOUTH PAIN Last administered on 05/23/20at 09:20; Start 05/22/20 at 16:15 Active Scripts Active Keflex (Cephalexin) 500 Mg Capsule 1 Cap PO TID Keflex (Cephalexin) 500 Mg Capsule 500 Mg PO QID 10 Days Reported Metformin Hcl 500 Mg Tablet 500 Mg PO BIDWMEALS [place] Thyroid (Thyroid,Pork) 120 Mg Tablet 120 Mg PO DAILY Alprazolam 1 Mg Tablet 1 Mg PO TID PRN Vitals/I & O Vital Sign - Last 24 Hours 05/22/20 05/22/20 05/22/20 05/23/20 19:43 20:00 22:53 03:20 Temp 98.4 98.6 98.3 98.4 98.6 98.3 Pulse 99 88 77 Resp 18 18 18 B/P (MAP) 135/72 (93) 142/69 (93) 150/65 (93) Pulse Ox 95 97 95 O2 Delivery Room Air Room Air Room Air Room Air 05/23/20 05/23/20 05/23/20 05/23/20 07:00 08:00 10:55 15:03 Temp 97.9 98.7 98.9 97.9 98.7 98.9 Pulse 78 78 83 Resp 16 18 18 B/P (MAP) 137/62 (87) 160/68 (98) 153/70 (97) Pulse Ox 94 96 97 O2 Delivery Room Air Room Air Room Air Room Air Intake and Output 05/22/20 05/22/20 05/23/20 15:00 23:00 07:00 Intake Total 0 ml 1200 ml Balance 0 ml 1200 ml Justicifation of Admission Dx: Justifications for Admission: Justification of Admission Dx: Yes ALEXANDRA BAUGH MD May 23, 2020 15:43
[2020-05-23] MEDS: ACETAMINOPHEN 325 MG TABLET. PO PRN (17:53)
[2020-05-23] MEDS: ENOXAPARIN 40 MG/0.4 ML SYRINGE. SQ SCH (17:53)
--- NOTE | 2020-05-23 18:28 | PDOC1 ---
History & Psych Evaluation Date of Service: DOS: DATE: 05/23/20 TIME: 18:14 Source: Source: Caregiver, Chart review, Patient Identification: Identification She is a 74-year-old female with history of generalized anxiety disorder and recurrent tonic-clonic seizures Chief Complaint: Chief Complaint Xanax withdrawal, depression, anxiety, and tonic-clonic seizure History of Present Illness: HPI: She is a 74-year-old female with history of anxiety admitted with history of multiple seizures over the past 24 hours. She reportedly had 5 generalized tonic-clonic seizures in 24 hours. She had prior history of Xanax withdrawal seizures. Reportedly, she has been taking high doses of Xanax from 8mg to 12 mg/day for almost 30 years. When seen, she appears very depressed and anxious. Stating, " I am dying" she continues to ruminate the same seems like preoccupied with . States, she also has the desire to . However she actively denies any suicidal or homicidal thoughts intent or plan. She is disorganized having flight of ideas talking about her son and and then talking about 2003 incidents. She endorses depression characterized as hopelessness, loss of interest, psychomotor retardation, and recurrent suicidal ideation or preoccupation with . Her mental status is altered she thinks that she is in [facility] and year is 2002. Endorsing anxiety initially stated it is very high then said she has 0 anxiety. Thought processes rambling. Periodically talking about her son and . Due to her limited insight and thought process she was not able to continue with further interview and closed her eyes and would not answer further questions. Mumbling that she is dying. Neglected self-care was apparent. Past Psychiatric History: History of depression and anxiety taking Xanax for anxiety and high doses denies history of psychiatric hospital admission. Denies previous history of suicidal attempt. Past Medical History: See medical chart for details Family History: Psychiatric family history is not known to the patient Social History: Social History: She lives with her and son. Denies illicit substance use. Denies legal issues Current Medications: Current Medications Current Medications Medications (Trade) Dose Ordered Sig/Pacheco Start Time Stop Time Status Last Admin Dose Admin Acetaminophen (Tylenol) 650 mg PRN Q6HRS PRN 05/22/20 16:15 05/23/20 17:53 650 MG Alprazolam (Xanax) 1 mg TID PRN 05/22/20 15:30 05/23/20 15:23 1 MG Dextrose (Dextrose 50%-Water Syringe) 12.5 gm PRN Q15MIN PRN 05/22/20 16:15 Enoxaparin Sodium (Lovenox 40mg Syringe) 40 mg Q24H 05/22/20 17:00 05/23/20 17:53 40 MG Fluoxetine HCl (PROzac) 40 mg DAILYWBKFT 05/23/20 08:00 05/23/20 09:20 40 MG Insulin Human Lispro (HumaLOG) 0-7 UNITS TIDACHC 05/22/20 16:30 Levetiracetam 1000 mg/Dextrose 110 ml @ 750 mls/hr 1X ONCE 05/22/20 15:00 05/22/20 15:08 Cancel Levetiracetam 500 mg/Dextrose 105 ml @ 420 mls/hr Q12H 05/23/20 03:30 05/23/20 15:25 420 MLS/HR Levetiracetam 750 mg/Dextrose 107.5 ml @ 440 mls/hr 1X ONCE 05/22/20 16:00 05/22/20 16:14 DC 05/22/20 16:11 440 MLS/HR Levothyroxine Sodium (Synthroid) 137 mcg DAILY06 05/23/20 06:00 05/23/20 05:29 137 MCG Lorazepam (Ativan Inj) 2 mg 1X ONCE 05/22/20 13:15 05/22/20 13:16 DC 05/22/20 13:17 1 MG Metformin HCl (Glucophage) 500 mg BIDWMEALS 05/22/20 17:00 05/22/20 16:37 DC Multi-Ingredient Mouthwash/Gargle (Magic Mouthwash) 10 ml PRN QID PRN 05/22/20 16:15 05/23/20 09:20 10 ML Ondansetron HCl (Zofran) 4 mg PRN Q4HRS PRN 05/22/20 13:00 Psyllium Hydrophilic Mucilloid (Metamucil Fiber Packet) 1 pkt QHS 05/22/20 21:00 05/22/20 21:29 1 PKT Sodium Chloride 1,000 ml @ 100 mls/hr Q10H 05/22/20 12:47 05/23/20 12:46 DC 05/23/20 08:47 100 MLS/HR Thyroid ([place] Thyroid) 180 mg DAILY06 05/23/20 06:00 05/22/20 15:39 DC Trazodone HCl (Desyrel) 100 mg HS 05/22/20 21:00 05/22/20 21:29 100 MG Allergies: Allergies: Coded Allergies: codeine (Unverified Allergy, Mild, Nausea and Vomiting, 03/06/16) pt states "Any pain pills make me vomit" Mental Status Examination: Mental Status Examination female appears her stated age. She is confused and anxious depressed She is disoriented Denies auditory or visual hallucinations She is preoccupied with . Denies active suicidal ideation or homicidal ideation Mood is depressed and anxious Affect is dysthymic Insight is poor Judgment is poor Impulse control is fair Attention span and concentration impaired Recent and remote memory impaired ROS: 14 point review of system is otherwise negative except for as stated above. Physical Exam: Refer to Physician's note. STEEL ROLLER: No focal deficit MSK: No EPS, TDK, or abnormal involuntary movements Vitals: Vitals Vital Signs Date Time Temp Pulse Resp B/P (MAP) Pulse Ox O2 Delivery O2 Flow Rate FiO2 05/23/20 15:03 98.9 83 18 153/70 (97) 97 Room Air 98.9 Labs: Labs Laboratory Tests Test 05/22/20 11:00 05/22/20 11:10 05/22/20 16:48 05/22/20 21:06 Urine Collection Type Unknown Urine Color Yellow Urine Clarity Clear Urine pH 5.5 (<5.0-8.0) Urine Specific [place] 1.025 (1.000-1.030) Urine Protein 100 mg/dL (NEG-TRACE) Urine Glucose (UA) 250 mg/dL (NEG) Urine Ketones (Stick) >=80 mg/dL (NEG) Urine Blood Trace (NEG) Urine Nitrite Negative (NEG) Urine Bilirubin Negative (NEG) Urine Urobilinogen Dipstick 1.0 mg/dL (0.2 mg/dL) Urine Leukocyte Esterase Negative (NEG) Urine RBC 3-5 /HPF (0-2) Urine WBC 1-4 /HPF (0-4) Urine Squamous Epithelial Cells Few /LPF Urine Amorphous Sediment Present /HPF Urine Bacteria 0 /HPF (0-FEW) Urine Hyaline Casts Moderate /HPF Urine Mucus Mod /LPF Urine Yeast Present /HPF Urine Opiates Screen Neg (NEG) Urine Methadone Screen Neg (NEG) Urine Barbiturates Neg (NEG) Urine Phencyclidine Screen Neg (NEG) Urine Amphetamine/Methamphetamine Neg (NEG) Urine Benzodiazepines Screen Pos (NEG) Urine Cocaine Screen Neg (NEG) Urine Cannabinoids Screen Neg (NEG) Urine Ethyl Alcohol Neg (NEG) White Blood Count 11.7 x10^3/uL (4.0-11.0) Red Blood Count 4.85 x10^6/uL (3.50-5.40) Hemoglobin 14.3 g/dL (12.0-15.5) Hematocrit 41.4 % (36.0-47.0) Mean Corpuscular Volume 85 fL (79-100) Mean Corpuscular Hemoglobin 30 pg (25-35) Mean Corpuscular Hemoglobin Concent 35 g/dL (31-37) Red Cell Distribution Width 12.7 % (11.5-14.5) Platelet Count 430 x10^3/uL (140-400) Neutrophils (%) (Auto) 91 % (31-73) Lymphocytes (%) (Auto) 7 % (24-48) Monocytes (%) (Auto) 2 % (0-9) Eosinophils (%) (Auto) 0 % (0-3) Basophils (%) (Auto) 0 % (0-3) Neutrophils # (Auto) 10.7 x10^3/uL (1.8-7.7) Lymphocytes # (Auto) 0.8 x10^3/uL (1.0-4.8) Monocytes # (Auto) 0.2 x10^3/uL (0.0-1.1) Eosinophils # (Auto) 0.0 x10^3/uL (0.0-0.7) Basophils # (Auto) 0.0 x10^3/uL (0.0-0.2) Segmented Neutrophils % 88 % (35-66) Band Neutrophils % 2 % (0-9) Lymphocytes % 7 % (24-48) Monocytes % 3 % (0-10) Platelet Estimate Increased (ADEQUATE) Prothrombin Time 13.9 SEC (11.7-14.0) Prothromb Time International Ratio 1.1 (0.8-1.1) Activated Partial Thromboplast Time 28 SEC (24-38) Sodium Level 137 mmol/L (136-145) Potassium Level 3.5 mmol/L (3.5-5.1) Chloride Level 98 mmol/L (98-107) Carbon Dioxide Level 25 mmol/L (21-32) Anion Gap 14 (6-14) Blood Urea Nitrogen 10 mg/dL (7-20) Creatinine 0.7 mg/dL (0.6-1.0) Estimated GFR (Cockcroft-Gault) 82.0 BUN/Creatinine Ratio 14 (6-20) Glucose Level 167 mg/dL (70-99) Calcium Level 8.7 mg/dL (8.5-10.1) Magnesium Level 2.1 mg/dL (1.8-2.4) Total Bilirubin 0.6 mg/dL (0.2-1.0) Aspartate Amino Transf (AST/SGOT) 18 U/L (15-37) Alanine Aminotransferase (ALT/SGPT) 27 U/L (14-59) Alkaline Phosphatase 64 U/L (46-116) Troponin I Quantitative < 0.017 ng/mL (0.000-0.055) Total Protein 8.1 g/dL (6.4-8.2) Albumin 4.2 g/dL (3.4-5.0) Albumin/Globulin Ratio 1.1 (1.0-1.7) Thyroid Stimulating Hormone (TSH) < 0.007 uIU/mL (0.358-3.74) Free Thyroxine 1.27 ng/dL (0.76-1.46) Ethyl Alcohol Level < 10 mg/dL (0-10) Glucose (Fingerstick) 169 mg/dL (70-99) 119 mg/dL (70-99) Test 05/23/20 05:00 05/23/20 07:49 05/23/20 11:30 05/23/20 16:06 White Blood Count 6.5 x10^3/uL (4.0-11.0) Red Blood Count 4.18 x10^6/uL (3.50-5.40) Hemoglobin 12.4 g/dL (12.0-15.5) Hematocrit 36.3 % (36.0-47.0) Mean Corpuscular Volume 87 fL (79-100) Mean Corpuscular Hemoglobin 30 pg (25-35) Mean Corpuscular Hemoglobin Concent 34 g/dL (31-37) Red Cell Distribution Width 12.8 % (11.5-14.5) Platelet Count 352 x10^3/uL (140-400) Neutrophils (%) (Auto) 67 % (31-73) Lymphocytes (%) (Auto) 23 % (24-48) Monocytes (%) (Auto) 10 % (0-9) Eosinophils (%) (Auto) 1 % (0-3) Basophils (%) (Auto) 1 % (0-3) Neutrophils # (Auto) 4.3 x10^3/uL (1.8-7.7) Lymphocytes # (Auto) 1.5 x10^3/uL (1.0-4.8) Monocytes # (Auto) 0.6 x10^3/uL (0.0-1.1) Eosinophils # (Auto) 0.0 x10^3/uL (0.0-0.7) Basophils # (Auto) 0.0 x10^3/uL (0.0-0.2) Sodium Level 144 mmol/L (136-145) Potassium Level 3.2 mmol/L (3.5-5.1) Chloride Level 106 mmol/L (98-107) Carbon Dioxide Level 25 mmol/L (21-32) Anion Gap 13 (6-14) Blood Urea Nitrogen 7 mg/dL (7-20) Creatinine 0.4 mg/dL (0.6-1.0) Estimated GFR (Cockcroft-Gault) 156.5 BUN/Creatinine Ratio 18 (6-20) Glucose Level 101 mg/dL (70-99) Calcium Level 8.1 mg/dL (8.5-10.1) Total Bilirubin 0.4 mg/dL (0.2-1.0) Aspartate Amino Transf (AST/SGOT) 17 U/L (15-37) Alanine Aminotransferase (ALT/SGPT) 26 U/L (14-59) Alkaline Phosphatase 47 U/L (46-116) Total Protein 6.1 g/dL (6.4-8.2) Albumin 3.4 g/dL (3.4-5.0) Albumin/Globulin Ratio 1.3 (1.0-1.7) Glucose (Fingerstick) 93 mg/dL (70-99) 105 mg/dL (70-99) 124 mg/dL (70-99) Laboratory Tests Test 05/22/20 21:06 05/23/20 05:00 05/23/20 07:49 05/23/20 11:30 Glucose (Fingerstick) 119 mg/dL (70-99) 93 mg/dL (70-99) 105 mg/dL (70-99) White Blood Count 6.5 x10^3/uL (4.0-11.0) Red Blood Count 4.18 x10^6/uL (3.50-5.40) Hemoglobin 12.4 g/dL (12.0-15.5) Hematocrit 36.3 % (36.0-47.0) Mean Corpuscular Volume 87 fL (79-100) Mean Corpuscular Hemoglobin 30 pg (25-35) Mean Corpuscular Hemoglobin Concent 34 g/dL (31-37) Red Cell Distribution Width 12.8 % (11.5-14.5) Platelet Count 352 x10^3/uL (140-400) Neutrophils (%) (Auto) 67 % (31-73) Lymphocytes (%) (Auto) 23 % (24-48) Monocytes (%) (Auto) 10 % (0-9) Eosinophils (%) (Auto) 1 % (0-3) Basophils (%) (Auto) 1 % (0-3) Neutrophils # (Auto) 4.3 x10^3/uL (1.8-7.7) Lymphocytes # (Auto) 1.5 x10^3/uL (1.0-4.8) Monocytes # (Auto) 0.6 x10^3/uL (0.0-1.1) Eosinophils # (Auto) 0.0 x10^3/uL (0.0-0.7) Basophils # (Auto) 0.0 x10^3/uL (0.0-0.2) Sodium Level 144 mmol/L (136-145) Potassium Level 3.2 mmol/L (3.5-5.1) Chloride Level 106 mmol/L (98-107) Carbon Dioxide Level 25 mmol/L (21-32) Anion Gap 13 (6-14) Blood Urea Nitrogen 7 mg/dL (7-20) Creatinine 0.4 mg/dL (0.6-1.0) Estimated GFR (Cockcroft-Gault) 156.5 BUN/Creatinine Ratio 18 (6-20) Glucose Level 101 mg/dL (70-99) Calcium Level 8.1 mg/dL (8.5-10.1) Total Bilirubin 0.4 mg/dL (0.2-1.0) Aspartate Amino Transf (AST/SGOT) 17 U/L (15-37) Alanine Aminotransferase (ALT/SGPT) 26 U/L (14-59) Alkaline Phosphatase 47 U/L (46-116) Total Protein 6.1 g/dL (6.4-8.2) Albumin 3.4 g/dL (3.4-5.0) Albumin/Globulin Ratio 1.3 (1.0-1.7) Test 05/23/20 16:06 Glucose (Fingerstick) 124 mg/dL (70-99) Diagnosis: Diagnosis: Acute delirium likely hypoactive times, multifactorial Likely benzodiazepine withdrawal seizures Benzodiazepine withdrawal in context of benzodiazepine use disorder Major depressive disorder, recurrent, moderate Generalized anxiety disorder Assessment: female apparently with benzodiazepine dependence, frequent seizures which could be benzodiazepine withdrawal seizures (Xanax) as she has been using very high doses of Xanax. Additionally she is depressed and anxious. Appears that, Xanax has affected her mental status and cognition as well. She needs to be tapered off Xanax to DC. Initially replaced with Klonopin to prevent withdrawals and then taper Klonopin. Also recommending low-dose risperidone for delirium resolution. Additionally gabapentin to prevent seizures, benzodiazepine withdrawal Plan: Risperidone 1 mg at bedtime for the resolution of delirium. Gabapentin 300 mg 3 times a day to prevent benzodiazepine withdrawal, manage anxiety, and craving for benzos. Risk, benefits, alternatives of the treatment are discussed. She is in agreement with plan and voiced understanding. Adverse drug reaction of the medications prescribed discussed. Psychoeducation provided. Supportive psychotherapy provided. Monitor for symptomatology, adverse drug reaction, and safety. Thank you for involving inpatient care ARTEMIO LUDWIG MD May 23, 2020 18:28
[2020-05-23 19:25] VITALS: BP 152/75
[2020-05-23] MEDS ORDERED: clonazePAM 0.5 MG TABLET PO PRN (19:30)
--- NOTE | 2020-05-23 19:45 | NUR ---
Pt called out at this time complaining of suprapubic pain. Pt had just been incontinent of urine 20 minutes prior to this. I bladder scanned the patient and it revealed >[id number] in the bladder. Bladder is slightly distended to palpitation. I called who immediately called back and told him the above information. He gave me an order to insert and maintain a sharma catheter and get a UA at the same time.
--- NOTE | 2020-05-23 20:09 | NUR ---
17f sharma catheter inserted at this time without difficulty. Procedure explained to pt before hand, pt verbalized understanding. Immediate return of clear yellow urine after placement of catheter. Securing device applied.
[2020-05-23] MEDS: GABAPENTIN 300 MG CAPSULE. PO SCH (20:36)
[2020-05-23] MEDS: traZODone 100 MG TABLET. PO SCH (20:36)
[2020-05-23] MEDS: PSYLLIUM HUSK (SUGAR FREE) 1 PKT PACKET PO SCH (20:36)
[2020-05-23] MEDS ORDERED: risperiDONE 1 MG TABLET. PO SCH (21:00)
[2020-05-23 21:06] LABS: BILIRUBIN,URINE NEGATIVE (NEG); CLARITY,URINE CLEAR; COLOR,URINE YELLOW; NITRITE,URINE NEGATIVE (NEG); PROTEIN,URINE NEGATIVE (NEG-TRACE)
[2020-05-23 21:19] LABS: RBC,URINE 0 /HPF (0-2); WBC,URINE 20-40 /HPF (0-4)
[2020-05-23 21:20] LABS: AMORPHOUS SEDIMENT,UR PRESENT /HPF; BACTERIA,URINE FEW /HPF (0-FEW); SQUAMOUS EPITHELIAL CELL,UR FEW /LPF
[2020-05-23 22:33] VITALS: BP 129/61
[2020-05-24 03:10] VITALS: BP 144/82
[2020-05-24] MEDS: levETIRAcetam 500 MG in IV DEXTROSE 5% 100ML 100 ML IV SCH (03:24)
[2020-05-24] MEDS: LEVOTHYROXINE 137 MCG TABLET PO SCH (05:57)
[2020-05-24 07:00] VITALS: BP 151/71
[2020-05-24] MEDS: INSULIN LISPRO 300 UNITS/3 ML VIAL. SQ SCH ×4 (07:30→20:54)
[2020-05-24] MEDS: GABAPENTIN 300 MG CAPSULE. PO SCH ×3 (09:39→20:52)
[2020-05-24] MEDS: FLUoxetine HCL 20 MG CAPSULE PO SCH (09:39)
--- NOTE | 2020-05-24 10:14 | PDOC ---
PROGRESS NOTES Assessment Problems Medical Problems: (1) Seizures Status: Acute New seizures Encephalopathy, almost seems like a psychosis, note that she had been getting her Xanax dose adjusted. Thyroid cancer, anxiety, Plan Continue Levetiracetam MRI of the brain Electroencephalogram Seizure precautions Subjective She denies pain Objective Vital Signs Date Time Temp Pulse Resp B/P (MAP) Pulse Ox O2 Delivery O2 Flow Rate FiO2 05/24/20 07:00 98.6 85 16 151/71 (97) 94 Room Air 98.6 Intake and Output 05/24/20 07:00 Intake Total 0 ml Output Total 1725 ml Balance -1725 ml Intake Oral 0 ml Output Urine Total 1725 ml # Voids 4 PHYSICAL EXAM Alert. Oriented to person, says that she is at 64[address] in [place], perhaps referring to [facility]. She does not know the date. She does not know the name of the president. Speech is tangential. PERRL. EOMI. CN: no focal findings. Muscle tone: normal. Muscle strength: 4/5 DTR: 1+ Plantar reflex: flexor Gait: not examined in bed. Sensory exam: no abnormal findings. No cerebellar signs elicited. Review of Relevant I have reviewed the following items buck (where applicable) has been applied. Labs Laboratory Tests Test 05/22/20 11:00 05/22/20 11:10 05/22/20 16:48 05/22/20 21:06 Urine Collection Type Unknown Urine Color Yellow Urine Clarity Clear Urine pH 5.5 (<5.0-8.0) Urine Specific [place] 1.025 (1.000-1.030) Urine Protein 100 mg/dL (NEG-TRACE) Urine Glucose (UA) 250 mg/dL (NEG) Urine Ketones (Stick) >=80 mg/dL (NEG) Urine Blood Trace (NEG) Urine Nitrite Negative (NEG) Urine Bilirubin Negative (NEG) Urine Urobilinogen Dipstick 1.0 mg/dL (0.2 mg/dL) Urine Leukocyte Esterase Negative (NEG) Urine RBC 3-5 /HPF (0-2) Urine WBC 1-4 /HPF (0-4) Urine Squamous Epithelial Cells Few /LPF Urine Amorphous Sediment Present /HPF Urine Bacteria 0 /HPF (0-FEW) Urine Hyaline Casts Moderate /HPF Urine Mucus Mod /LPF Urine Yeast Present /HPF Urine Opiates Screen Neg (NEG) Urine Methadone Screen Neg (NEG) Urine Barbiturates Neg (NEG) Urine Phencyclidine Screen Neg (NEG) Urine Amphetamine/Methamphetamine Neg (NEG) Urine Benzodiazepines Screen Pos (NEG) Urine Cocaine Screen Neg (NEG) Urine Cannabinoids Screen Neg (NEG) Urine Ethyl Alcohol Neg (NEG) White Blood Count 11.7 x10^3/uL (4.0-11.0) Red Blood Count 4.85 x10^6/uL (3.50-5.40) Hemoglobin 14.3 g/dL (12.0-15.5) Hematocrit 41.4 % (36.0-47.0) Mean Corpuscular Volume 85 fL (79-100) Mean Corpuscular Hemoglobin 30 pg (25-35) Mean Corpuscular Hemoglobin Concent 35 g/dL (31-37) Red Cell Distribution Width 12.7 % (11.5-14.5) Platelet Count 430 x10^3/uL (140-400) Neutrophils (%) (Auto) 91 % (31-73) Lymphocytes (%) (Auto) 7 % (24-48) Monocytes (%) (Auto) 2 % (0-9) Eosinophils (%) (Auto) 0 % (0-3) Basophils (%) (Auto) 0 % (0-3) Neutrophils # (Auto) 10.7 x10^3/uL (1.8-7.7) Lymphocytes # (Auto) 0.8 x10^3/uL (1.0-4.8) Monocytes # (Auto) 0.2 x10^3/uL (0.0-1.1) Eosinophils # (Auto) 0.0 x10^3/uL (0.0-0.7) Basophils # (Auto) 0.0 x10^3/uL (0.0-0.2) Segmented Neutrophils % 88 % (35-66) Band Neutrophils % 2 % (0-9) Lymphocytes % 7 % (24-48) Monocytes % 3 % (0-10) Platelet Estimate Increased (ADEQUATE) Prothrombin Time 13.9 SEC (11.7-14.0) Prothromb Time International Ratio 1.1 (0.8-1.1) Activated Partial Thromboplast Time 28 SEC (24-38) Sodium Level 137 mmol/L (136-145) Potassium Level 3.5 mmol/L (3.5-5.1) Chloride Level 98 mmol/L (98-107) Carbon Dioxide Level 25 mmol/L (21-32) Anion Gap 14 (6-14) Blood Urea Nitrogen 10 mg/dL (7-20) Creatinine 0.7 mg/dL (0.6-1.0) Estimated GFR (Cockcroft-Gault) 82.0 BUN/Creatinine Ratio 14 (6-20) Glucose Level 167 mg/dL (70-99) Calcium Level 8.7 mg/dL (8.5-10.1) Magnesium Level 2.1 mg/dL (1.8-2.4) Total Bilirubin 0.6 mg/dL (0.2-1.0) Aspartate Amino Transf (AST/SGOT) 18 U/L (15-37) Alanine Aminotransferase (ALT/SGPT) 27 U/L (14-59) Alkaline Phosphatase 64 U/L (46-116) Troponin I Quantitative < 0.017 ng/mL (0.000-0.055) Total Protein 8.1 g/dL (6.4-8.2) Albumin 4.2 g/dL (3.4-5.0) Albumin/Globulin Ratio 1.1 (1.0-1.7) Thyroid Stimulating Hormone (TSH) < 0.007 uIU/mL (0.358-3.74) Free Thyroxine 1.27 ng/dL (0.76-1.46) Total Triiodothyronine 118 ng/dL (71-180) Ethyl Alcohol Level < 10 mg/dL (0-10) Glucose (Fingerstick) 169 mg/dL (70-99) 119 mg/dL (70-99) Test 05/23/20 05:00 05/23/20 07:49 05/23/20 11:30 05/23/20 16:06 White Blood Count 6.5 x10^3/uL (4.0-11.0) Red Blood Count 4.18 x10^6/uL (3.50-5.40) Hemoglobin 12.4 g/dL (12.0-15.5) Hematocrit 36.3 % (36.0-47.0) Mean Corpuscular Volume 87 fL (79-100) Mean Corpuscular Hemoglobin 30 pg (25-35) Mean Corpuscular Hemoglobin Concent 34 g/dL (31-37) Red Cell Distribution Width 12.8 % (11.5-14.5) Platelet Count 352 x10^3/uL (140-400) Neutrophils (%) (Auto) 67 % (31-73) Lymphocytes (%) (Auto) 23 % (24-48) Monocytes (%) (Auto) 10 % (0-9) Eosinophils (%) (Auto) 1 % (0-3) Basophils (%) (Auto) 1 % (0-3) Neutrophils # (Auto) 4.3 x10^3/uL (1.8-7.7) Lymphocytes # (Auto) 1.5 x10^3/uL (1.0-4.8) Monocytes # (Auto) 0.6 x10^3/uL (0.0-1.1) Eosinophils # (Auto) 0.0 x10^3/uL (0.0-0.7) Basophils # (Auto) 0.0 x10^3/uL (0.0-0.2) Sodium Level 144 mmol/L (136-145) Potassium Level 3.2 mmol/L (3.5-5.1) Chloride Level 106 mmol/L (98-107) Carbon Dioxide Level 25 mmol/L (21-32) Anion Gap 13 (6-14) Blood Urea Nitrogen 7 mg/dL (7-20) Creatinine 0.4 mg/dL (0.6-1.0) Estimated GFR (Cockcroft-Gault) 156.5 BUN/Creatinine Ratio 18 (6-20) Glucose Level 101 mg/dL (70-99) Calcium Level 8.1 mg/dL (8.5-10.1) Total Bilirubin 0.4 mg/dL (0.2-1.0) Aspartate Amino Transf (AST/SGOT) 17 U/L (15-37) Alanine Aminotransferase (ALT/SGPT) 26 U/L (14-59) Alkaline Phosphatase 47 U/L (46-116) Total Protein 6.1 g/dL (6.4-8.2) Albumin 3.4 g/dL (3.4-5.0) Albumin/Globulin Ratio 1.3 (1.0-1.7) Glucose (Fingerstick) 93 mg/dL (70-99) 105 mg/dL (70-99) 124 mg/dL (70-99) Test 05/23/20 20:05 05/23/20 20:47 05/24/20 07:29 Urine Collection Type U cath Urine Color Yellow Urine Clarity Clear Urine pH 6.0 (<5.0-8.0) Urine Specific [place] 1.010 (1.000-1.030) Urine Protein Negative mg/dL (NEG-TRACE) Urine Glucose (UA) Negative mg/dL (NEG) Urine Ketones (Stick) >=80 mg/dL (NEG) Urine Blood Negative (NEG) Urine Nitrite Negative (NEG) Urine Bilirubin Negative (NEG) Urine Urobilinogen Dipstick 1.0 mg/dL (0.2 mg/dL) Urine Leukocyte Esterase Large (NEG) Urine RBC 0 /HPF (0-2) Urine WBC 20-40 /HPF (0-4) Urine Squamous Epithelial Cells Few /LPF Urine Transitional Epithelial Cells Occ /LPF Urine Renal Epithelial Cells Occ /LPF Urine Amorphous Sediment Present /HPF Urine Bacteria Few /HPF (0-FEW) Glucose (Fingerstick) 103 mg/dL (70-99) 85 mg/dL (70-99) Laboratory Tests Test 05/23/20 11:30 05/23/20 16:06 05/23/20 20:05 05/23/20 20:47 Glucose (Fingerstick) 105 mg/dL (70-99) 124 mg/dL (70-99) 103 mg/dL (70-99) Urine Collection Type U cath Urine Color Yellow Urine Clarity Clear Urine pH 6.0 (<5.0-8.0) Urine Specific [place] 1.010 (1.000-1.030) Urine Protein Negative mg/dL (NEG-TRACE) Urine Glucose (UA) Negative mg/dL (NEG) Urine Ketones (Stick) >=80 mg/dL (NEG) Urine Blood Negative (NEG) Urine Nitrite Negative (NEG) Urine Bilirubin Negative (NEG) Urine Urobilinogen Dipstick 1.0 mg/dL (0.2 mg/dL) Urine Leukocyte Esterase Large (NEG) Urine RBC 0 /HPF (0-2) Urine WBC 20-40 /HPF (0-4) Urine Squamous Epithelial Cells Few /LPF Urine Transitional Epithelial Cells Occ /LPF Urine Renal Epithelial Cells Occ /LPF Urine Amorphous Sediment Present /HPF Urine Bacteria Few /HPF (0-FEW) Test 05/24/20 07:29 Glucose (Fingerstick) 85 mg/dL (70-99) Microbiology 05/23/20 Blood Culture - Preliminary, Resulted NO GROWTH AFTER 1 DAY Medications Current Medications Ondansetron HCl (Zofran) 4 mg 1X ONCE IVP Last administered on 05/22/20at 12:5 7; Start 05/22/20 at 12:45; Stop 05/22/20 at 12:46; Status DC Lorazepam (Ativan Inj) 1 mg PRN Q4HRS PRN IVP ANXIETY / AGITATION Last administered on 05/22/20at 12:57; Start 05/22/20 at 13:00; Stop 05/22/20 at 13:02; Status DC Ondansetron HCl (Zofran) 4 mg PRN Q8HRS PRN IV NAUSEA/VOMITING; Start 05/22/20 at 13:00; Stop 05/22/20 at 13:00; Status DC Sodium Chloride 1,000 ml @ 100 mls/hr Q10H IV Last administered on 05/23/20at 08:47; Start 05/22/20 at 12:47; Stop 05/23/20 at 12:46; Status DC Ondansetron HCl (Zofran) 4 mg PRN Q4HRS PRN IV NAUSEA/VOMITING; Start 05/22/20 at 13:00 Lorazepam (Ativan Inj) 2 mg 1X ONCE IVP Last administered on 05/22/20at 13:17; Start 05/22/20 at 13:15; Stop 05/22/20 at 13:16; Status DC Metformin HCl (Glucophage) 500 mg BIDWMEALS PO ; Start 05/22/20 at 17:00; Stop 05/22/20 at 16:37; Status DC Alprazolam (Xanax) 2 mg Q6HRS PO ; Start 05/22/20 at 18:00; Stop 05/22/20 at 15:29; Status DC Fluoxetine HCl (PROzac) 40 mg DAILYWBKFT PO Last administered on 05/24/20at 09:39; Start 05/23/20 at 08:00 Thyroid ([place] Thyroid) 180 mg DAILY06 PO ; Start 05/23/20 at 06:00; Stop 05/22/20 at 15:39; Status DC Trazodone HCl (Desyrel) 100 mg HS PO Last administered on 05/22/20at 21:29; Start 05/22/20 at 21:00 Levetiracetam 1000 mg/Dextrose 110 ml @ 750 mls/hr 1X ONCE IV ; Start 05/22/20 at 15:00; Stop 05/22/20 at 15:08; Status Cancel Levetiracetam 500 mg/Dextrose 105 ml @ 420 mls/hr Q12H IV Last administered on 05/24/20at 03:24; Start 05/23/20 at 03:30 Alprazolam (Xanax) 1 mg TID PRN PO ANXIETY / AGITATION Last administered on 05/23/20at 15:23; Start 05/22/20 at 15:30; Stop 05/23/20 at 19:18; Status DC Levothyroxine Sodium (Synthroid) 137 mcg DAILY06 PO Last administered on 05/23/20at 05:29; Start 05/23/20 at 06:00 Enoxaparin Sodium (Lovenox 40mg Syringe) 40 mg Q24H SQ Last administered on 05/23/20at 17:53; Start 05/22/20 at 17:00 Levetiracetam 750 mg/Dextrose 107.5 ml @ 440 mls/hr 1X ONCE IV Last administered on 05/22/20at 16:11; Start 05/22/20 at 16:00; Stop 05/22/20 at 16:14; Status DC Insulin Human Lispro (HumaLOG) 0-7 UNITS TIDACHC SQ ; Start 05/22/20 at 16:30 Dextrose (Dextrose 50%-Water Syringe) 12.5 gm PRN Q15MIN PRN IV SEE COMMENTS; Start 05/22/20 at 16:15 Psyllium Hydrophilic Mucilloid (Metamucil Fiber Packet) 1 pkt QHS PO Last a dministered on 05/22/20at 21:29; Start 05/22/20 at 21:00 Acetaminophen (Tylenol) 650 mg PRN Q6HRS PRN PO MILD PAIN / TEMP > 100.3'F Last administered on 05/23/20at 17:53; Start 05/22/20 at 16:15 Multi-Ingredient Mouthwash/Gargle (Magic Mouthwash) 10 ml PRN QID PRN PO MOUTH PAIN Last administered on 05/23/20at 09:20; Start 05/22/20 at 16:15 Gabapentin (Neurontin) 300 mg TID PO Last administered on 05/24/20at 09:39; Start 05/23/20 at 21:00 Risperidone (RisperDAL) 1 mg QHS PO ; Start 05/23/20 at 21:00 Clonazepam (KlonoPIN) 0.5 mg PRN Q6HRS PRN PO ANXIETY / AGITATION; Start 05/23/20 at 19:30 Active Scripts Active Keflex (Cephalexin) 500 Mg Capsule 1 Cap PO TID Keflex (Cephalexin) 500 Mg Capsule 500 Mg PO QID 10 Days Reported Metformin Hcl 500 Mg Tablet 500 Mg PO BIDWMEALS [place] Thyroid (Thyroid,Pork) 120 Mg Tablet 120 Mg PO DAILY Alprazolam 1 Mg Tablet 1 Mg PO TID PRN Vitals/I & O Vital Sign - Last 24 Hours 05/23/20 05/23/20 05/23/20 05/23/20 10:55 15:03 19:25 19:45 Temp 98.7 98.9 98.6 98.7 98.9 98.6 Pulse 78 83 89 Resp 18 18 18 B/P (MAP) 160/68 (98) 153/70 (97) 152/75 (100) Pulse Ox 96 97 97 O2 Delivery Room Air Room Air Room Air Room Air 05/23/20 05/24/20 05/24/20 22:33 03:10 07:00 Temp 98.6 98.9 98.6 98.6 98.9 98.6 Pulse 89 95 85 Resp 18 18 16 B/P (MAP) 129/61 (83) 144/82 (102) 151/71 (97) Pulse Ox 95 95 94 O2 Delivery Room Air Room Air Room Air Intake and Output 05/23/20 05/23/20 05/24/20 15:00 23:00 07:00 Intake Total 0 ml Output Total 600 ml 1125 ml Balance -600 ml -1125 ml Justicifation of Admission Dx: Justifications for Admission: Justification of Admission Dx: Yes LILO MCDANIEL MD May 24, 2020 10:14
[2020-05-24 11:00] VITALS: BP 160/85
[2020-05-24] MEDS ORDERED: levETIRAcetam 1,000 MG in IV DEXTROSE 5% 100ML 100 ML IV STA (11:21)
--- NOTE | 2020-05-24 11:27 | EEG ---
DATE OF SERVICE: 05/24/2020 ELECTROENCEPHALOGRAM REPORT EEG NUMBER: [id number]. OBJECTIVE: The patient is a 74-year-old female with new seizures. DESCRIPTION: This is a digital study. Electrodes are placed according to international 10-20 system. Bipolar and referential montages are available. Activation procedures typically include hyperventilation and intermittent photic stimulation. INTERPRETATION: The waking background consists of 9-10 Hz, 50-100 microvolt activity, symmetrically distributed over parietooccipital regions and reactive to eye opening. Two seizures with absence symptomatology are recorded during which the electroencephalogram shows polyspike and wave activity at the rate of 2.5-3 Hz. No convulsive activity is observed during these episodes. Sleep, stage 1, is achieved. Hyperventilation and intermittent photic stimulation are noncontributory. IMPRESSION: This electroencephalogram with the patient awake and asleep is abnormal because of a generalized disturbance of cerebral activity as may be seen in a variety of hereditary epilepsy syndromes. These usually present much younger in life. Two clinical and electrographic seizures were recorded. Thank you for letting us help with the patient's care. LILO MCDANIEL MD DR: HARPREET/tina JOB#: [id number] / [id number]
--- NOTE | 2020-05-24 11:56 | NUR ---
SS following for discharge planning. SS reviewed pt chart and discussed with pt RN. Pt is from home with spouse and is currently on room air. Pt had EEG this AM and had seizure activity. Pt having Brain MRI and ST evaluation ordered. SS will continue to follow for discharge planning.
--- NOTE | 2020-05-24 13:08 | NUR ---
Received a call from EEG, stating she had 2 seizures 2 or 3 mins long this am. 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 Pt was given her loading dose of keppra IV, within 20 minutes of it infusing she was Indy with Speech was doing a besides swallow test when pt stated she felt hot, and had an approx 5 minute seizure. Indy received help from SHANKAR Moreira. When this RN pager went off, I came into the room at the end of her seizure at approximately 1220. Pt was post-ictal. Within 2 minutes pt had opened her eyes and responded a yes. Became more verbal, but appeared drowsy. Keppra IV done infusing as of 1305 of the loading dose. Arnel updated. Monitoring patient. If pt conditions worsens or has another seizure she is to be transferred to ICU per Arnel. Spoke with SO, pt has had seizure 3 years ago. This Rn received in report it was 10 years ago. Pt has a history or retaining urine. Pt takes 8mg of xanax at HS. SO states she still takes 8mg xanax nightly, and believes this is the reason she is having seizures. Pt was retainign urine last night and has a 16F Santos inserted last shift. SO also stated she had stopped taking her antiseizure meds long ago. No accurate time frame was given to this RN.
[2020-05-24] MEDS ORDERED: GADOTERATE 7.5 MMOL/15ML VIAL. IVP ONE (14:15)
--- NOTE | 2020-05-24 14:27 | PDOC ---
PROGRESS NOTES Date of Service: DATE: 05/24/20 TIME: 14:25 Chief Complaint Chief Complaint Acute encephalopathy - likely post-ictal given her seizures, her TSH is also undetectable, however if she is s/p thyroidectomy she does need suppressive dosing, will change to levothyroxine 1.75mcg/kg and round up to 137mcg, stop armour thyroid. Consult neurology. Seizure precautions New onset seizures - likely 2/2 xanax dosing as she mostly takes doses at night. Has been recently reduced from 12mg total per day to 8mg total per day. Started on keppra IV. Neurology benefits consultant recommendations noted and greatly appreciated. Unfortunately, she must continue on xanax and have prolonged taper, consult psych Delusional behavior - psych to evaluate Hypertension - cont meds Palpitations - telemetry Diabetes mellitus - sliding scale. Will hold metformin in the event she may require CT angiogram with contrast Hypothyroidism s/p thyroidectomy - 35 years ago to levothyroxine 137 mcg for her own safety as [place] Thyroid does not have discrete amounts of T3 or T4 and can be variable and is inappropriate therapy for total thyroid function suppression after a thyroidectomy for thyroid cancer. 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, wood stainer to see Hypokalemia - will replace FEN - ADAT PPX - Lovenox FULL CODE Dispo - inpatient for at least 2 midnights History of Present Illness History of Present Illness 05/24: Patient presented seizure activity while having eeg, neurolgy benefits consultant aware, will follow results of MRI of the head not available at the time of this note. Vitals Vitals Vital Signs Date Time Temp Pulse Resp B/P (MAP) Pulse Ox O2 Delivery O2 Flow Rate FiO2 05/24/20 11:00 98.7 106 16 160/85 (110) 93 Room Air 98.7 Physical Exam General: Alert, Cooperative, mild distress Abdomen: Normal bowel sounds, Soft, No tenderness, No hepatosplenomegaly, No masses Extremities: No clubbing, No cyanosis, No edema, Normal pulses, No tenderness/swelling Skin: No rashes, No breakdown, No significant lesion Labs LABS Laboratory Tests Test 05/23/20 16:06 05/23/20 20:05 05/23/20 20:47 05/24/20 07:29 Glucose (Fingerstick) 124 mg/dL (70-99) 103 mg/dL (70-99) 85 mg/dL (70-99) Urine Collection Type U cath Urine Color Yellow Urine Clarity Clear Urine pH 6.0 (<5.0-8.0) Urine Specific [place] 1.010 (1.000-1.030) Urine Protein Negative mg/dL (NEG-TRACE) Urine Glucose (UA) Negative mg/dL (NEG) Urine Ketones (Stick) >=80 mg/dL (NEG) Urine Blood Negative (NEG) Urine Nitrite Negative (NEG) Urine Bilirubin Negative (NEG) Urine Urobilinogen Dipstick 1.0 mg/dL (0.2 mg/dL) Urine Leukocyte Esterase Large (NEG) Urine RBC 0 /HPF (0-2) Urine WBC 20-40 /HPF (0-4) Urine Squamous Epithelial Cells Few /LPF Urine Transitional Epithelial Cells Occ /LPF Urine Renal Epithelial Cells Occ /LPF Urine Amorphous Sediment Present /HPF Urine Bacteria Few /HPF (0-FEW) Test 05/24/20 12:09 Glucose (Fingerstick) 139 mg/dL (70-99) Assessment and Plan Assessmemt and Plan Problems Medical Problems: (1) Seizures Status: Acute Comment Review of Relevant I have reviewed the following items buck (where applicable) has been applied. Labs Laboratory Tests Test 05/22/20 16:48 05/22/20 21:06 05/23/20 05:00 05/23/20 07:49 Glucose (Fingerstick) 169 mg/dL (70-99) 119 mg/dL (70-99) 93 mg/dL (70-99) White Blood Count 6.5 x10^3/uL (4.0-11.0) Red Blood Count 4.18 x10^6/uL (3.50-5.40) Hemoglobin 12.4 g/dL (12.0-15.5) Hematocrit 36.3 % (36.0-47.0) Mean Corpuscular Volume 87 fL (79-100) Mean Corpuscular Hemoglobin 30 pg (25-35) Mean Corpuscular Hemoglobin Concent 34 g/dL (31-37) Red Cell Distribution Width 12.8 % (11.5-14.5) Platelet Count 352 x10^3/uL (140-400) Neutrophils (%) (Auto) 67 % (31-73) Lymphocytes (%) (Auto) 23 % (24-48) Monocytes (%) (Auto) 10 % (0-9) Eosinophils (%) (Auto) 1 % (0-3) Basophils (%) (Auto) 1 % (0-3) Neutrophils # (Auto) 4.3 x10^3/uL (1.8-7.7) Lymphocytes # (Auto) 1.5 x10^3/uL (1.0-4.8) Monocytes # (Auto) 0.6 x10^3/uL (0.0-1.1) Eosinophils # (Auto) 0.0 x10^3/uL (0.0-0.7) Basophils # (Auto) 0.0 x10^3/uL (0.0-0.2) Sodium Level 144 mmol/L (136-145) Potassium Level 3.2 mmol/L (3.5-5.1) Chloride Level 106 mmol/L (98-107) Carbon Dioxide Level 25 mmol/L (21-32) Anion Gap 13 (6-14) Blood Urea Nitrogen 7 mg/dL (7-20) Creatinine 0.4 mg/dL (0.6-1.0) Estimated GFR (Cockcroft-Gault) 156.5 BUN/Creatinine Ratio 18 (6-20) Glucose Level 101 mg/dL (70-99) Calcium Level 8.1 mg/dL (8.5-10.1) Total Bilirubin 0.4 mg/dL (0.2-1.0) Aspartate Amino Transf (AST/SGOT) 17 U/L (15-37) Alanine Aminotransferase (ALT/SGPT) 26 U/L (14-59) Alkaline Phosphatase 47 U/L (46-116) Total Protein 6.1 g/dL (6.4-8.2) Albumin 3.4 g/dL (3.4-5.0) Albumin/Globulin Ratio 1.3 (1.0-1.7) Test 05/23/20 11:30 05/23/20 16:06 05/23/20 20:05 05/23/20 20:47 Glucose (Fingerstick) 105 mg/dL (70-99) 124 mg/dL (70-99) 103 mg/dL (70-99) Urine Collection Type U cath Urine Color Yellow Urine Clarity Clear Urine pH 6.0 (<5.0-8.0) Urine Specific [place] 1.010 (1.000-1.030) Urine Protein Negative mg/dL (NEG-TRACE) Urine Glucose (UA) Negative mg/dL (NEG) Urine Ketones (Stick) >=80 mg/dL (NEG) Urine Blood Negative (NEG) Urine Nitrite Negative (NEG) Urine Bilirubin Negative (NEG) Urine Urobilinogen Dipstick 1.0 mg/dL (0.2 mg/dL) Urine Leukocyte Esterase Large (NEG) Urine RBC 0 /HPF (0-2) Urine WBC 20-40 /HPF (0-4) Urine Squamous Epithelial Cells Few /LPF Urine Transitional Epithelial Cells Occ /LPF Urine Renal Epithelial Cells Occ /LPF Urine Amorphous Sediment Present /HPF Urine Bacteria Few /HPF (0-FEW) Test 05/24/20 07:29 05/24/20 12:09 Glucose (Fingerstick) 85 mg/dL (70-99) 139 mg/dL (70-99) Laboratory Tests Test 05/23/20 16:06 05/23/20 20:05 05/23/20 20:47 05/24/20 07:29 Glucose (Fingerstick) 124 mg/dL (70-99) 103 mg/dL (70-99) 85 mg/dL (70-99) Urine Collection Type U cath Urine Color Yellow Urine Clarity Clear Urine pH 6.0 (<5.0-8.0) Urine Specific [place] 1.010 (1.000-1.030) Urine Protein Negative mg/dL (NEG-TRACE) Urine Glucose (UA) Negative mg/dL (NEG) Urine Ketones (Stick) >=80 mg/dL (NEG) Urine Blood Negative (NEG) Urine Nitrite Negative (NEG) Urine Bilirubin Negative (NEG) Urine Urobilinogen Dipstick 1.0 mg/dL (0.2 mg/dL) Urine Leukocyte Esterase Large (NEG) Urine RBC 0 /HPF (0-2) Urine WBC 20-40 /HPF (0-4) Urine Squamous Epithelial Cells Few /LPF Urine Transitional Epithelial Cells Occ /LPF Urine Renal Epithelial Cells Occ /LPF Urine Amorphous Sediment Present /HPF Urine Bacteria Few /HPF (0-FEW) Test 05/24/20 12:09 Glucose (Fingerstick) 139 mg/dL (70-99) Microbiology 05/23/20 Blood Culture - Preliminary, Resulted NO GROWTH AFTER 1 DAY Medications Current Medications Ondansetron HCl (Zofran) 4 mg 1X ONCE IVP Last administered on 05/22/20at 12:57; Start 05/22/20 at 12:45; Stop 05/22/20 at 12:46; Status DC Lorazepam (Ativan Inj) 1 mg PRN Q4HRS PRN IVP ANXIETY / AGITATION Last administered on 05/22/20at 12:57; Start 05/22/20 at 13:00; Stop 05/22/20 at 13:02; Status DC Ondansetron HCl (Zofran) 4 mg PRN Q8HRS PRN IV NAUSEA/VOMITING; Start 05/22/20 at 13:00; Stop 05/22/20 at 13:00; Status DC Sodium Chloride 1,000 ml @ 100 mls/hr Q10H IV Last administered on 05/23/20at 08:47; Start 05/22/20 at 12:47; Stop 05/23/20 at 12:46; Status DC Ondansetron HCl (Zofran) 4 mg PRN Q4HRS PRN IV NAUSEA/VOMITING; Start 05/22/20 at 13:00 Lorazepam (Ativan Inj) 2 mg 1X ONCE IVP Last administered on 05/22/20at 13:17; Start 05/22/20 at 13:15; Stop 05/22/20 at 13:16; Status DC Metformin HCl (Glucophage) 500 mg BIDWMEALS PO ; Start 05/22/20 at 17:00; Stop 05/22/20 at 16:37; Status DC Alprazolam (Xanax) 2 mg Q6HRS PO ; Start 05/22/20 at 18:00; Stop 05/22/20 at 15:29; Status DC Fluoxetine HCl (PROzac) 40 mg DAILYWBKFT PO Last administered on 05/24/20at 09:39; Start 05/23/20 at 08:00 Thyroid ([place] Thyroid) 180 mg DAILY06 PO ; Start 05/23/20 at 06:00; Stop 05/22/20 at 15:39; Status DC Trazodone HCl (Desyrel) 100 mg HS PO Last administered on 05/22/20at 21:29; Start 05/22/20 at 21:00 Levetiracetam 1000 mg/Dextrose 110 ml @ 750 mls/hr 1X ONCE IV ; Start 05/22/20 at 15:00; Stop 05/22/20 at 15:08; Status Cancel Levetiracetam 500 mg/Dextrose 105 ml @ 420 mls/hr Q12H IV Last administered on 05/24/20at 03:24; Start 05/23/20 at 03:30; Stop 05/24/20 at 11:19; Status DC Alprazolam (Xanax) 1 mg TID PRN PO ANXIETY / AGITATION Last administered on 05/23/20at 15:23; Start 05/22/20 at 15:30; Stop 05/23/20 at 19:18; Status DC Levothyroxine Sodium (Synthroid) 137 mcg DAILY06 PO Last administered on 05/23/20at 05:29; Start 05/23/20 at 06:00 Enoxaparin Sodium (Lovenox 40mg Syringe) 40 mg Q24H SQ Last administered on 05/23/20at 17:53; Start 05/22/20 at 17:00 Levetiracetam 750 mg/Dextrose 107.5 ml @ 440 mls/hr 1X ONCE IV Last administered on 05/22/20at 16:11; Start 05/22/20 at 16:00; Stop 05/22/20 at 16:14; Status DC Insulin Human Lispro (HumaLOG) 0-7 UNITS TIDACHC SQ ; Start 05/22/20 at 16:30 Dextrose (Dextrose 50%-Water Syringe) 12.5 gm PRN Q15MIN PRN IV SEE COMMENTS; Start 05/22/20 at 16:15 Psyllium Hydrophilic Mucilloid (Metamucil Fiber Packet) 1 pkt QHS PO Last administered on 05/22/20at 21:29; Start 05/22/20 at 21:00 Acetaminophen (Tylenol) 650 mg PRN Q6HRS PRN PO MILD PAIN / TEMP > 100.3'F Last administered on 05/23/20at 17:53; Start 05/22/20 at 16:15 Multi-Ingredient Mouthwash/Gargle (Magic Mouthwash) 10 ml PRN QID PRN PO MOUTH PAIN Last administered on 05/23/20at 09:20; Start 05/22/20 at 16:15 Gabapentin (Neurontin) 300 mg TID PO Last administered on 05/24/20at 09:39; Start 05/23/20 at 21:00 Risperidone (RisperDAL) 1 mg QHS PO ; Start 05/23/20 at 21:00 Clonazepam (KlonoPIN) 0.5 mg PRN Q6HRS PRN PO ANXIETY / AGITATION; Start 05/23/20 at 19:30 Levetiracetam 750 mg/Dextrose 107.5 ml @ 420 mls/hr Q12H IV ; Start 05/24/20 at 21:00 Levetiracetam 1000 mg/Dextrose 110 ml @ 440 mls/hr 1X STAT IV Last administered on 05/24/20at 12:01; Start 05/24/20 at 11:21; Stop 05/24/20 at 11:35; Status DC Gadoterate Meglumine (Dotarem) 15.2 ml 1X ONCE IVP Last administered on 05/24/20at 14:15; Start 05/24/20 at 14:15; Stop 05/24/20 at 14:16; Status DC Active Scripts Active Keflex (Cephalexin) 500 Mg Capsule 1 Cap PO TID Keflex (Cephalexin) 500 Mg Capsule 500 Mg PO QID 10 Days Reported Metformin Hcl 500 Mg Tablet 500 Mg PO BIDWMEALS [place] Thyroid (Thyroid,Pork) 120 Mg Tablet 120 Mg PO DAILY Alprazolam 1 Mg Tablet 1 Mg PO TID PRN Vitals/I & O Vital Sign - Last 24 Hours 05/23/20 05/23/20 05/23/20 05/23/20 15:03 19:25 19:45 22:33 Temp 98.9 98.6 98.6 98.9 98.6 98.6 Pulse 83 89 89 Resp 18 18 18 B/P (MAP) 153/70 (97) 152/75 (100) 129/61 (83) Pulse Ox 97 97 95 O2 Delivery Room Air Room Air Room Air Room Air 05/24/20 05/24/20 05/24/20 03:10 07:00 11:00 Temp 98.9 98.6 98.7 98.9 98.6 98.7 Pulse 95 85 106 Resp 18 16 16 B/P (MAP) 144/82 (102) 151/71 (97) 160/85 (110) Pulse Ox 95 94 93 O2 Delivery Room Air Room Air Room Air Intake and Output 05/23/20 05/23/20 05/24/20 15:00 23:00 07:00 Intake Total 0 ml Output Total 600 ml 1125 ml Balance -600 ml -1125 ml Justicifation of Admission Dx: Justifications for Admission: Justification of Admission Dx: Yes ALEXANDRA BAUGH MD May 24, 2020 14:27
[2020-05-24 15:00] VITALS: BP 154/75
--- NOTE | 2020-05-24 15:06 | RAD ---
BRAIN WO/W CONTRAST Date: 05/24/2020 3:00 PM Indication: seizure activity Comparison: CT 05/22/2020. Technique: Multiplanar multisequence MRI of the brain was performed with and without intravenous contrast using the standard protocol. 15 cc Dotarem contrast was administered intravenously during the exam. Findings: No acute infarct. No acute or chronic hemorrhage. The ventricles are normal in size and configuration without hydrocephalus. Mild scattered FLAIR hyperintensities in the subcortical and periventricular deep white matter, a nonspecific finding, most commonly seen with chronic small vessel ischemic disease. Mild cerebral volume loss. Hippocampi are normal in signal and morphology. No calderon matter heterotopia or cortical dysplasia. No evidence of arteriovenous malformation or cavernoma No abnormal enhancement. Hyperostosis frontalis. The pituitary and sella are normal. No Chiari malformation. The visualized upper cervical spine is normal. The visualized orbits and globes are normal. The visualized paranasal sinuses are clear. The mastoid air cells are clear. Normal flow voids within the vertebral, basilar, and internal carotid arteries indicating patency. IMPRESSION: 1. No acute infarct or hemorrhage. No mass or abnormal enhancement. 2. Mild chronic small vessel ischemic disease and mild cerebral volume loss. Electronically signed by: Jorge Urrutia MD (05/24/2020 3:03 PM) [id number]
--- NOTE | 2020-05-24 16:15 | NUR ---
Pt gabapentin was given with her heparin, earlier. The scanner didn't scan medication at the time it was given. Addendum: 05/24/20 at 1616 by SARA BATISTA RN RN Please excuse and ignore this not, not intended for this patient.
[2020-05-24] MEDS: ENOXAPARIN 40 MG/0.4 ML SYRINGE. SQ SCH (17:36)
[2020-05-24] MEDS: IV NORMAL SALINE 1000ML BAG 1,000 ML IV SCH (17:37)
--- NOTE | 2020-05-24 17:38 | PDOC ---
F/U PHYSCH PROG NOTE Subjective: female with Xanax dependence is seen for routine follow-up. Progress is reviewed with nursing staff. Reportedly she had 3 tonic-clonic seizures in which she lost consciousness also bit her tongue. She had 2 seizures in EEG. When seen, she appears tired and lethargic avoiding eye contact and wanting to sleep. Denies suicidal or homicidal thoughts. Denies auditory or visual hallucinations. No evidence of laila or hypomania. Objective: Vital Signs: Vital Signs Date Time Temp Pulse Resp B/P (MAP) Pulse Ox O2 Delivery O2 Flow Rate FiO2 05/24/20 15:00 98.5 90 16 154/75 (101) 97 Room Air 98.5 Labs: Laboratory Tests Test 05/23/20 20:05 05/23/20 20:47 05/24/20 07:29 05/24/20 12:09 Urine Collection Type U cath Urine Color Yellow Urine Clarity Clear Urine pH 6.0 (<5.0-8.0) Urine Specific [place] 1.010 (1.000-1.030) Urine Protein Negative mg/dL (NEG-TRACE) Urine Glucose (UA) Negative mg/dL (NEG) Urine Ketones (Stick) >=80 mg/dL (NEG) Urine Blood Negative (NEG) Urine Nitrite Negative (NEG) Urine Bilirubin Negative (NEG) Urine Urobilinogen Dipstick 1.0 mg/dL (0.2 mg/dL) Urine Leukocyte Esterase Large (NEG) Urine RBC 0 /HPF (0-2) Urine WBC 20-40 /HPF (0-4) Urine Squamous Epithelial Cells Few /LPF Urine Transitional Epithelial Cells Occ /LPF Urine Renal Epithelial Cells Occ /LPF Urine Amorphous Sediment Present /HPF Urine Bacteria Few /HPF (0-FEW) Glucose (Fingerstick) 103 mg/dL (70-99) H 85 mg/dL (70-99) 139 mg/dL (70-99) H Test 05/24/20 16:58 Glucose (Fingerstick) 132 mg/dL (70-99) H Medications: Current Medications Medications (Trade) Dose Ordered Sig/Pacheco Start Time Stop Time Status Last Admin Dose Admin Acetaminophen (Tylenol) 650 mg PRN Q6HRS PRN 05/22/20 16:15 05/23/20 17:53 650 MG Alprazolam (Xanax) 1 mg TID PRN 05/22/20 15:30 05/23/20 19:18 DC 05/23/20 15:23 1 MG Clonazepam (KlonoPIN) 0.5 mg PRN Q6HRS PRN 05/23/20 19:30 Dextrose (Dextrose 50%-Water Syringe) 12.5 gm PRN Q15MIN PRN 05/22/20 16:15 Enoxaparin Sodium (Lovenox 40mg Syringe) 40 mg Q24H 05/22/20 17:00 05/23/20 17:53 40 MG Fluoxetine HCl (PROzac) 40 mg DAILYWBKFT 05/23/20 08:00 05/24/20 09:39 40 MG Gabapentin (Neurontin) 300 mg TID 05/23/20 21:00 05/24/20 14:00 300 MG Gadoterate Meglumine (Dotarem) 15.2 ml 1X ONCE 05/24/20 14:15 05/24/20 14:16 DC 05/24/20 14:15 15.2 ML Insulin Human Lispro (HumaLOG) 0-7 UNITS TIDACHC 05/22/20 16:30 Levetiracetam 1000 mg/Dextrose 110 ml @ 440 mls/hr 1X STAT 05/24/20 11:21 05/24/20 11:35 DC 05/24/20 12:01 440 MLS/HR Levetiracetam 500 mg/Dextrose 105 ml @ 420 mls/hr Q12H 05/23/20 03:30 05/24/20 11:19 DC 05/24/20 03:24 420 MLS/HR Levetiracetam 750 mg/Dextrose 107.5 ml @ 420 mls/hr Q12H 05/24/20 21:00 Levothyroxine Sodium (Synthroid) 137 mcg DAILY06 05/23/20 06:00 05/23/20 05:29 137 MCG Lorazepam (Ativan Inj) 2 mg 1X ONCE 05/22/20 13:15 05/22/20 13:16 DC 05/22/20 13:17 1 MG Metformin HCl (Glucophage) 500 mg BIDWMEALS 05/22/20 17:00 05/22/20 16:37 DC Multi-Ingredient Mouthwash/Gargle (Magic Mouthwash) 10 ml PRN QID PRN 8/22/20 16:15 05/23/20 09:20 10 ML Ondansetron HCl (Zofran) 4 mg PRN Q4HRS PRN 05/22/20 13:00 Psyllium Hydrophilic Mucilloid (Metamucil Fiber Packet) 1 pkt QHS 05/22/20 21:00 05/22/20 21:29 1 PKT Risperidone (RisperDAL) 1 mg QHS 05/23/20 21:00 Sodium Chloride 1,000 ml @ 100 mls/hr Q10H 05/24/20 15:45 Thyroid ([place] Thyroid) 180 mg DAILY06 05/23/20 06:00 05/22/20 15:39 DC Trazodone HCl (Desyrel) 100 mg HS 05/22/20 21:00 05/22/20 21:29 100 MG Physical Exam: Mental Status Exam: female appears her stated age. She is confused and anxious depressed She is disoriented Denies auditory or visual hallucinations She is preoccupied with . Denies active suicidal ideation or homicidal ideation Mood is depressed and anxious Affect is dysthymic Insight is poor Judgment is poor Impulse control is fair Attention span and concentration impaired Recent and remote memory impaired Physical Exam: Refer to Physician's note. INGREDIENT SPECIALIST: No focal deficit MSK: No EPS, TDK, or abnormal involuntary movements Diagnosis: Acute delirium likely hypoactive times, multifactorial Likely benzodiazepine withdrawal seizures Benzodiazepine withdrawal in context of benzodiazepine use disorder Major depressive disorder, recurrent, moderate Generalized anxiety disorder Assessment: female apparently with benzodiazepine dependence, frequent seizures which could be benzodiazepine withdrawal seizures (Xanax) as she has been using very high doses of Xanax. Additionally she is depressed and anxious. Appears that, Xanax has affected her mental status and cognition as well. She needs to be tapered off Xanax to DC. Initially replaced with Klonopin to prevent withdrawals and then taper Klonopin. Also recommending low-dose risperidone for delirium resolution. Additionally gabapentin to prevent seizures, benzodiazepine withdrawal Plan: Discontinue risperidone. Scheduled Ativan 1 mg 4 times a day to replace Xanax. Will taper off later. Gabapentin 300 mg 3 times a day to prevent benzodiazepine withdrawal, manage anxiety, and craving for benzos. Risk, benefits, alternatives of the treatment are discussed. She is in agreement with plan and voiced understanding. Adverse drug reaction of the medications prescribed discussed. Psychoeducation provided. Supportive psychotherapy provided. Monitor for symptomatology, adverse drug reaction, and safety. Thank you for involving inpatient care ARTEMIO LUDWIG MD May 24, 2020 17:38
[2020-05-24 19:15] VITALS: BP 171/94
[2020-05-24] MEDS: PSYLLIUM HUSK (SUGAR FREE) 1 PKT PACKET PO SCH (20:52)
[2020-05-24] MEDS: traZODone 100 MG TABLET. PO SCH (20:52)
[2020-05-24] MEDS ORDERED: levETIRAcetam 750 MG in IV DEXTROSE 5% 100ML 100 ML IV SCH (21:00)
[2020-05-24] MEDS: levETIRAcetam 750 MG in IV DEXTROSE 5% 100ML 100 ML IV SCH (21:00)
[2020-05-24 22:49] VITALS: BP 164/93
[2020-05-25] VITALS (7 sets, daily range): BP systolic 128–164; BP diastolic 65–108
[2020-05-25] MEDS: VALPROIC ACID (AS SODIUM SALT) 500 MG in IV DEXTROSE 5% 50 ML IV SCH ×3 (01:52→20:26)
[2020-05-25] MEDS: IV NORMAL SALINE 1000ML BAG 1,000 ML IV SCH ×2 (01:52→12:55)
--- NOTE | 2020-05-25 01:57 | NUR ---
Pt had seizure at 1118 that last approx 2 min, ending at 1120. Dr. Barrett notified and orders received. Vs stable, call light in reach, bed in low locked position, call light in reach. Will continue to monitor. Addendum: 05/25/20 at 0253 by DAMASO QURESHI RN RN Pt was placed on right side during seizure. Pt bit right side of tongue.
[2020-05-25] MEDS: LEVOTHYROXINE 137 MCG TABLET PO SCH (06:11)
[2020-05-25] MEDS: INSULIN LISPRO 300 UNITS/3 ML VIAL. SQ SCH ×4 (07:30→20:52)
[2020-05-25] MEDS: levETIRAcetam 750 MG in IV DEXTROSE 5% 100ML 100 ML IV SCH ×2 (08:43→22:24)
[2020-05-25] MEDS: GABAPENTIN 300 MG CAPSULE. PO SCH ×3 (08:45→20:49)
[2020-05-25] MEDS: FLUoxetine HCL 20 MG CAPSULE PO SCH (08:45)
--- NOTE | 2020-05-25 10:44 | NUR ---
SS following up with discharge planning. SS reviewed pt chart and discussed with pt RN. Pt is currently on room air. Pt still having seizures and is currently NPO. Neurology following. PT/OT ordered. Pt may need nursing home unit at discharge. COVID19 test requested. SS will continue to follow for discharge planning.
--- NOTE | 2020-05-25 10:56 | PDOC ---
PROGRESS NOTES Assessment Problems Medical Problems: (1) Seizures Status: Acute New seizures, EEG shows two seizures with absence symptomatology associated on the EEG with polyspike and wave activity at the rate of 2.5-3 Hz. No convulsive activity was observed during these episodes. Patient continued to have several seizures yesterday, early this morning I added [place] and she has had no additional seizures and appears more alert this morning. says it she first had seizures 4 years ago when she missed a dose of Xanax. She has been on high doses of Xanax for anxiety. Patient does not recall any childhood seizures. 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 MRI is unremarkable as reviewed below Encephalopathy, almost seems like a psychosis, ictal. Thyroid cancer, anxiety, Plan Continue Levetiracetam and Depakon Seizure precautions Observe at least one more night Discussed diagnosis, treatment, seizure precautions, with patient and her . Subjective No complaints Objective Vital Signs Date Time Temp Pulse Resp B/P (MAP) Pulse Ox O2 Delivery O2 Flow Rate FiO2 05/25/20 07:00 98.7 104 16 142/68 (92) 94 Room Air 98.7 Intake and Output 05/25/20 07:00 Intake Total 0 ml Output Total 2025 ml Balance -2025 ml Intake Oral 0 ml Output Urine Total 2025 ml PHYSICAL EXAM Alert. Oriented to person, knows location, not date PERRL. EOMI. CN: no focal findings. Muscle tone: normal. Muscle strength: 4/5 DTR: 1+ Plantar reflex: flexor Gait: not examined in bed. Sensory exam: no abnormal findings. No cerebellar signs elicited. Review of Relevant I have reviewed the following items buck (where applicable) has been applied. Labs Laboratory Tests Test 05/23/20 11:30 05/23/20 16:06 05/23/20 20:05 05/23/20 20:47 Glucose (Fingerstick) 105 mg/dL (70-99) 124 mg/dL (70-99) 103 mg/dL (70-99) Urine Collection Type U cath Urine Color Yellow Urine Clarity Clear Urine pH 6.0 (<5.0-8.0) Urine Specific [place] 1.010 (1.000-1.030) Urine Protein Negative mg/dL (NEG-TRACE) Urine Glucose (UA) Negative mg/dL (NEG) Urine Ketones (Stick) >=80 mg/dL (NEG) Urine Blood Negative (NEG) Urine Nitrite Negative (NEG) Urine Bilirubin Negative (NEG) Urine Urobilinogen Dipstick 1.0 mg/dL (0.2 mg/dL) Urine Leukocyte Esterase Large (NEG) Urine RBC 0 /HPF (0-2) Urine WBC 20-40 /HPF (0-4) Urine Squamous Epithelial Cells Few /LPF Urine Transitional Epithelial Cells Occ /LPF Urine Renal Epithelial Cells Occ /LPF Urine Amorphous Sediment Present /HPF Urine Bacteria Few /HPF (0-FEW) Test 05/24/20 07:29 05/24/20 12:09 05/24/20 16:58 05/24/20 20:27 Glucose (Fingerstick) 85 mg/dL (70-99) 139 mg/dL (70-99) 132 mg/dL (70-99) 127 mg/dL (70-99) Test 05/25/20 07:17 Glucose (Fingerstick) 140 mg/dL (70-99) Laboratory Tests Test 05/24/20 12:09 05/24/20 16:58 05/24/20 20:27 05/25/20 07:17 Glucose (Fingerstick) 139 mg/dL (70-99) 132 mg/dL (70-99) 127 mg/dL (70-99) 140 mg/dL (70-99) Microbiology 05/23/20 Blood Culture - Preliminary, Resulted NO GROWTH AFTER 2 DAYS Medications Current Medications Ondansetron HCl (Zofran) 4 mg 1X ONCE IVP Last administered on 05/22/20at 12:57; Start 05/22/20 at 12:45; Stop 05/22/20 at 12:46; Status DC Lorazepam (Ativan Inj) 1 mg PRN Q4HRS PRN IVP ANXIETY / AGITATION Last administered on 05/22/20at 12:57; Start 05/22/20 at 13:00; Stop 05/22/20 at 13:02; Status DC Ondansetron HCl (Zofran) 4 mg PRN Q8HRS PRN IV NAUSEA/VOMITING; Start 05/22/20 at 13:00; Stop 05/22/20 at 13:00; Status DC Sodium Chloride 1,000 ml @ 100 mls/hr Q10H IV Last administered on 05/23/20at 08:47; Start 05/22/20 at 12:47; Stop 05/23/20 at 12:46; Status DC Ondansetron HCl (Zofran) 4 mg PRN Q4HRS PRN IV NAUSEA/VOMITING; Start 05/22/20 at 13:00 Lorazepam (Ativan Inj) 2 mg 1X ONCE IVP Last administered on 05/22/20at 13:17; Start 05/22/20 at 13:15; Stop 05/22/20 at 13:16; Status DC Metformin HCl (Glucophage) 500 mg BIDWMEALS PO ; Start 05/22/20 at 17:00; Stop 05/22/20 at 16:37; Status DC Alprazolam (Xanax) 2 mg Q6HRS PO ; Start 05/22/20 at 18:00; Stop 05/22/20 at 15:29; Status DC Fluoxetine HCl (PROzac) 40 mg DAILYWBKFT PO Last administered on 05/25/20at 08:45; Start 05/23/20 at 08:00 Thyroid ([place] Thyroid) 180 mg DAILY06 PO ; Start 05/23/20 at 06:00; Stop 05/22/20 at 15:39; Status DC Trazodone HCl (Desyrel) 100 mg HS PO Last administered on 05/24/20at 20:52; Start 05/22/20 at 21:00 Levetiracetam 1000 mg/Dextrose 110 ml @ 750 mls/hr 1X ONCE IV ; Start 05/22/20 at 15:00; Stop 05/22/20 at 15:08; Status Cancel Levetiracetam 500 mg/Dextrose 105 ml @ 420 mls/hr Q12H IV Last administered on 05/24/20at 03:24; Start 05/23/20 at 03:30; Stop 05/24/20 at 11:19; Status DC Alprazolam (Xanax) 1 mg TID PRN PO ANXIETY / AGITATION Last administered on 05/23/20at 15:23; Start 05/22/20 at 15:30; Stop 05/23/20 at 19:18; Status DC Levothyroxine Sodium (Synthroid) 137 mcg DAILY06 PO Last administered on 05/25/20at 06:11; Start 05/23/20 at 06:00 Enoxaparin Sodium (Lovenox 40mg Syringe) 40 mg Q24H SQ Last administered on 05/24/20at 17:36; Start 05/22/20 at 17:00 Levetiracetam 750 mg/Dextrose 107.5 ml @ 440 mls/hr 1X ONCE IV Last administered on 05/22/20at 16:11; Start 05/22/20 at 16:00; Stop 05/22/20 at 16:14; Status DC Insulin Human Lispro (HumaLOG) 0-7 UNITS TIDACHC SQ ; Start 05/22/20 at 16:30 Dextrose (Dextrose 50%-Water Syringe) 12.5 gm PRN Q15MIN PRN IV SEE COMMENTS; Start 05/22/20 at 16:15 Psyllium Hydrophilic Mucilloid (Metamucil Fiber Packet) 1 pkt QHS PO Last administered on 05/22/20at 21:29; Start 05/22/20 at 21:00 Acetaminophen (Tylenol) 650 mg PRN Q6HRS PRN PO MILD PAIN / TEMP > 100.3'F Last administered on 05/23/20at 17:53; Start 05/22/20 at 16:15 Multi-Ingredient Mouthwash/Gargle (Magic Mouthwash) 10 ml PRN QID PRN PO MOUTH PAIN Last administered on 05/23/20at 09:20; Start 05/22/20 at 16:15 Gabapentin (Neurontin) 300 mg TID PO Last administered on 05/25/20at 08:45; Start 05/23/20 at 21:00 Risperidone (RisperDAL) 1 mg QHS PO ; Start 05/23/20 at 21:00; Stop 05/24/20 at 17:42; Status DC Clonazepam (KlonoPIN) 0.5 mg PRN Q6HRS PRN PO ANXIETY / AGITATION; Start 05/23/20 at 19:30 Levetiracetam 750 mg/Dextrose 107.5 ml @ 420 mls/hr Q12H IV ; Start 05/24/20 at 21:00; Stop 05/24/20 at 20:54; Status DC Levetiracetam 1000 mg/Dextrose 110 ml @ 440 mls/hr 1X STAT IV Last administered on 05/24/20at 12:01; Start 05/24/20 at 11:21; Stop 05/24/20 at 11:35; Status DC Gadoterate Meglumine (Dotarem) 15.2 ml 1X ONCE IVP Last administered on 05/24/20at 14:15; Start 05/24/20 at 14:15; Stop 05/24/20 at 14:16; Status DC Sodium Chloride 1,000 ml @ 100 mls/hr Q10H IV Last administered on 05/25/20at 01:52; Start 05/24/20 at 15:45 Lorazepam (Ativan) 1 mg Q6HRS PO Last administered on 05/25/20at 06:11; Start 05/24/20 at 18:00 Levetiracetam 750 mg/Dextrose 107.5 ml @ 420 mls/hr Q12H IV Last administered on 05/25/20at 08:43; Start 05/24/20 at 21:00 Valproic Acid 500 mg/Dextrose 55 ml @ 55 mls/hr Q12HR IV Last administered on 05/25/20at 09:57; Start 05/25/20 at 01:45 Active Scripts Active Keflex (Cephalexin) 500 Mg Capsule 1 Cap PO TID Keflex (Cephalexin) 500 Mg Capsule 500 Mg PO QID 10 Days Reported Metformin Hcl 500 Mg Tablet 500 Mg PO BIDWMEALS [place] Thyroid (Thyroid,Pork) 120 Mg Tablet 120 Mg PO DAILY Alprazolam 1 Mg Tablet 1 Mg PO TID PRN Vitals/I & O Vital Sign - Last 24 Hours 05/24/20 05/24/20 05/24/20 05/24/20 11:00 15:00 19:15 19:28 Temp 98.7 98.5 98.7 98.7 98.5 98.7 Pulse 106 90 101 Resp 16 16 16 B/P (MAP) 160/85 (110) 154/75 (101) 171/94 (119) Pulse Ox 93 97 97 O2 Delivery Room Air Room Air Room Air Room Air 05/24/20 05/25/20 05/25/20 05/25/20 22:49 01:25 02:49 07:00 Temp 99.6 99.2 98.7 99.6 99.2 98.7 Pulse 105 110 107 104 Resp 16 18 18 16 B/P (MAP) 164/93 (116) 164/74 (104) 156/69 (98) 142/68 (92) Pulse Ox 95 98 94 94 O2 Delivery Room Air Room Air Room Air Room Air Intake and Output 05/24/20 05/24/20 05/25/20 15:00 23:00 07:00 Intake Total 0 ml 0 ml Output Total 1050 ml 375 ml 600 ml Balance -1050 ml -375 ml -600 ml Images BRAIN WO/W CONTRAST Date: 05/24/2020 3:00 PM Indication: seizure activity Comparison: CT 05/22/2020. Technique: Multiplanar multisequence MRI of the brain was performed with and without intravenous contrast using the standard protocol. 15 cc Dotarem contrast was administered intravenously during the exam. Findings: No acute infarct. No acute or chronic hemorrhage. The ventricles are normal in size and configuration without hydrocephalus. Mild scattered FLAIR hyperintensities in the subcortical and periventricular deep white matter, a nonspecific finding, most commonly seen with chronic small vessel ischemic disease. Mild cerebral volume loss. Hippocampi are normal in signal and morphology. No calderon matter heterotopia or cortical dysplasia. No evidence of arteriovenous malformation or cavernoma No abnormal enhancement. Hyperostosis frontalis. The pituitary and sella are normal. No Chiari malformation. The visualized upper cervical spine is normal. The visualized orbits and globes are normal. The visualized paranasal sinuses are clear. The mastoid air cells are clear. Normal flow voids within the vertebral, basilar, and internal carotid arteries indicating patency. IMPRESSION: 1. No acute infarct or hemorrhage. No mass or abnormal enhancement. 2. Mild chronic small vessel ischemic disease and mild cerebral volume loss. Justicifation of Admission Dx: Justifications for Admission: Justification of Admission Dx: Yes LILO MCDANIEL MD May 25, 2020 10:56
--- NOTE | 2020-05-25 13:09 | PDOC ---
PROGRESS NOTES Date of Service: DATE: 05/25/20 TIME: 13:08 Chief Complaint Chief Complaint Acute encephalopathy - likely post-ictal given her seizures, her TSH is also undetectable, however if she is s/p thyroidectomy she does need suppressive dosing, will change to levothyroxine 1.75mcg/kg and round up to 137mcg, stop armour thyroid. Consult neurology. Seizure precautions New onset seizures - likely 2/2 xanax dosing as she mostly takes doses at night. Has been recently reduced from 12mg total per day to 8mg total per day. Started on keppra IV. Neurology portfolio consultant recommendations noted and greatly appreciated. Unfortunately, she must continue on xanax and have prolonged taper, consult psych Delusional behavior - psych to evaluate Hypertension - cont meds Palpitations - telemetry Diabetes mellitus - sliding scale. Will hold metformin in the event she may require CT angiogram with contrast Hypothyroidism s/p thyroidectomy - 35 years ago to levothyroxine 137 mcg for her own safety as [place] Thyroid does not have discrete amounts of T3 or T4 and can be variable and is inappropriate therapy for total thyroid function suppression after a thyroidectomy for thyroid cancer. 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, die polisher to see Hypokalemia - will replace FEN - ADAT PPX - Lovenox FULL CODE Dispo - inpatient for at least 2 midnights History of Present Illness History of Present Illness 05/24: Patient presented seizure activity while having eeg, neurolgy portfolio consultant aware, will follow results of MRI of the head not available at the time of this note. 05/25: Patient has not presented seizure activity over night not today. She was seen in consultation by Dr. Mejia and changes to her medications have been noted. at bedside reassurance has been provided, improving. Patient anxious to be discharged I have explained the plan of care in detail and all of their concerns addressed to the best of my abilities Vitals Vitals Vital Signs Date Time Temp Pulse Resp B/P (MAP) Pulse Ox O2 Delivery O2 Flow Rate FiO2 05/25/20 11:00 98.9 97 16 128/65 (86) 97 Room Air 98.9 Physical Exam General: Alert, Cooperative, mild distress Heart: Regular rate, Normal S1, Normal S2 Lungs: Clear Abdomen: Normal bowel sounds, Soft, No tenderness, No hepatosplenomegaly, No masses Extremities: No clubbing, No cyanosis, No edema, Normal pulses, No tenderness/swelling Skin: No rashes, No breakdown, No significant lesion Labs LABS Laboratory Tests Test 05/24/20 16:58 05/24/20 20:27 05/25/20 07:17 05/25/20 11:54 Glucose (Fingerstick) 132 mg/dL (70-99) 127 mg/dL (70-99) 140 mg/dL (70-99) 165 mg/dL (70-99) Assessment and Plan Assessmemt and Plan Problems Medical Problems: (1) Seizures Status: Acute Comment Review of Relevant I have reviewed the following items buck (where applicable) has been applied. Labs Laboratory Tests Test 05/23/20 16:06 05/23/20 20:05 05/23/20 20:47 05/24/20 07:29 Glucose (Fingerstick) 124 mg/dL (70-99) 103 mg/dL (70-99) 85 mg/dL (70-99) Urine Collection Type U cath Urine Color Yellow Urine Clarity Clear Urine pH 6.0 (<5.0-8.0) Urine Specific [place] 1.010 (1.000-1.030) Urine Protein Negative mg/dL (NEG-TRACE) Urine Glucose (UA) Negative mg/dL (NEG) Urine Ketones (Stick) >=80 mg/dL (NEG) Urine Blood Negative (NEG) Urine Nitrite Negative (NEG) Urine Bilirubin Negative (NEG) Urine Urobilinogen Dipstick 1.0 mg/dL (0.2 mg/dL) Urine Leukocyte Esterase Large (NEG) Urine RBC 0 /HPF (0-2) Urine WBC 20-40 /HPF (0-4) Urine Squamous Epithelial Cells Few /LPF Urine Transitional Epithelial Cells Occ /LPF Urine Renal Epithelial Cells Occ /LPF Urine Amorphous Sediment Present /HPF Urine Bacteria Few /HPF (0-FEW) Test 05/24/20 12:09 05/24/20 16:58 05/24/20 20:27 05/25/20 07:17 Glucose (Fingerstick) 139 mg/dL (70-99) 132 mg/dL (70-99) 127 mg/dL (70-99) 140 mg/dL (70-99) Test 05/25/20 11:54 Glucose (Fingerstick) 165 mg/dL (70-99) Laboratory Tests Test 05/24/20 16:58 05/24/20 20:27 05/25/20 07:17 05/25/20 11:54 Glucose (Fingerstick) 132 mg/dL (70-99) 127 mg/dL (70-99) 140 mg/dL (70-99) 165 mg/dL (70-99) Microbiology 05/23/20 Urine Culture - Preliminary, Resulted 05/23/20 Blood Culture - Preliminary, Resulted NO GROWTH AFTER 2 DAYS Medications Current Medications Ondansetron HCl (Zofran) 4 mg 1X ONCE IVP Last administered on 05/22/20at 12:57; Start 05/22/20 at 12:45; Stop 05/22/20 at 12:46; Status DC Lorazepam (Ativan Inj) 1 mg PRN Q4HRS PRN IVP ANXIETY / AGITATION Last administered on 05/22/20at 12:57; Start 05/22/20 at 13:00; Stop 05/22/20 at 13:02; Status DC Ondansetron HCl (Zofran) 4 mg PRN Q8HRS PRN IV NAUSEA/VOMITING; Start 05/22/20 at 13:00; Stop 05/22/20 at 13:00; Status DC Sodium Chloride 1,000 ml @ 100 mls/hr Q10H IV Last administered on 05/23/20at 08:47; Start 05/22/20 at 12:47; Stop 05/23/20 at 12:46; Status DC Ondansetron HCl (Zofran) 4 mg PRN Q4HRS PRN IV NAUSEA/VOMITING; Start 05/22/20 at 13:00 Lorazepam (Ativan Inj) 2 mg 1X ONCE IVP Last administered on 05/22/20at 13:17; Start 05/22/20 at 13:15; Stop 05/22/20 at 13:16; Status DC Metformin HCl (Glucophage) 500 mg BIDWMEALS PO ; Start 05/22/20 at 17:00; Stop 05/22/20 at 16:37; Status DC Alprazolam (Xanax) 2 mg Q6HRS PO ; Start 05/22/20 at 18:00; Stop 05/22/20 at 15:29; Status DC Fluoxetine HCl (PROzac) 40 mg DAILYWBKFT PO Last administered on 05/25/20at 08:45; Start 05/23/20 at 08:00 Thyroid ([place] Thyroid) 180 mg DAILY06 PO ; Start 05/23/20 at 06:00; Stop 05/22/20 at 15:39; Status DC Trazodone HCl (Desyrel) 100 mg HS PO Last administered on 05/24/20at 20:52; Start 05/22/20 at 21:00 Levetiracetam 1000 mg/Dextrose 110 ml @ 750 mls/hr 1X ONCE IV ; Start 05/22/20 at 15:00; Stop 05/22/20 at 15:08; Status Cancel Levetiracetam 500 mg/Dextrose 105 ml @ 420 mls/hr Q12H IV Last administered on 05/24/20at 03:24; Start 05/23/20 at 03:30; Stop 05/24/20 at 11:19; Status DC Alprazolam (Xanax) 1 mg TID PRN PO ANXIETY / AGITATION Last administered on 05/23/20at 15:23; Start 05/22/20 at 15:30; Stop 05/23/20 at 19:18; Status DC Levothyroxine Sodium (Synthroid) 137 mcg DAILY06 PO Last administered on 05/25/20at 06:11; Start 05/23/20 at 06:00 Enoxaparin Sodium (Lovenox 40mg Syringe) 40 mg Q24H SQ Last administered on 05/24/20at 17:36; Start 05/22/20 at 17:00 Levetiracetam 750 mg/Dextrose 107.5 ml @ 440 mls/hr 1X ONCE IV Last administered on 05/22/20at 16:11; Start 05/22/20 at 16:00; Stop 05/22/20 at 16:14; Status DC Insulin Human Lispro (HumaLOG) 0-7 UNITS TIDACHC SQ ; Start 05/22/20 at 16:30 Dextrose (Dextrose 50%-Water Syringe) 12.5 gm PRN Q15MIN PRN IV SEE COMMENTS; Start 05/22/20 at 16:15 Psyllium Hydrophilic Mucilloid (Metamucil Fiber Packet) 1 pkt QHS PO Last administered on 05/22/20at 21:29; Start 05/22/20 at 21:00 Acetaminophen (Tylenol) 650 mg PRN Q6HRS PRN PO MILD PAIN / TEMP > 100.3'F Last administered on 05/23/20at 17:53; Start 05/22/20 at 16:15 Multi-Ingredient Mouthwash/Gargle (Magic Mouthwash) 10 ml PRN QID PRN PO MOUTH PAIN Last administered on 05/23/20at 09:20; Start 05/22/20 at 16:15 Gabapentin (Neurontin) 300 mg TID PO Last administered on 05/25/20at 08:45; Start 05/23/20 at 21:00 Risperidone (RisperDAL) 1 mg QHS PO ; Start 05/23/20 at 21:00; Stop 05/24/20 at 17:42; Status DC Clonazepam (KlonoPIN) 0.5 mg PRN Q6HRS PRN PO ANXIETY / AGITATION; Start 05/23/20 at 19:30 Levetiracetam 750 mg/Dextrose 107.5 ml @ 420 mls/hr Q12H IV ; Start 05/24/20 at 21:00; Stop 05/24/20 at 20:54; Status DC Levetiracetam 1000 mg/Dextrose 110 ml @ 440 mls/hr 1X STAT IV Last administered on 05/24/20at 12:01; Start 05/24/20 at 11:21; Stop 05/24/20 at 11:35; Status DC Gadoterate Meglumine (Dotarem) 15.2 ml 1X ONCE IVP Last administered on 05/24/20at 14:15; Start 05/24/20 at 14:15; Stop 05/24/20 at 14:16; Status DC Sodium Chloride 1,000 ml @ 100 mls/hr Q10H IV Last administered on 05/25/20at 12:55; Start 05/24/20 at 15:45 Lorazepam (Ativan) 1 mg Q6HRS PO Last administered on 05/25/20at 12:54; Start 05/24/20 at 18:00 Levetiracetam 750 mg/Dextrose 107.5 ml @ 420 mls/hr Q12H IV Last administered on 05/25/20at 08:43; Start 05/24/20 at 21:00 Valproic Acid 500 mg/Dextrose 55 ml @ 55 mls/hr Q12HR IV Last administered on 05/25/20at 09:57; Start 05/25/20 at 01:45 Active Scripts Active Keflex (Cephalexin) 500 Mg Capsule 1 Cap PO TID Keflex (Cephalexin) 500 Mg Capsule 500 Mg PO QID 10 Days Reported Metformin Hcl 500 Mg Tablet 500 Mg PO BIDWMEALS [place] Thyroid (Thyroid,Pork) 120 Mg Tablet 120 Mg PO DAILY Alprazolam 1 Mg Tablet 1 Mg PO TID PRN Vitals/I & O Vital Sign - Last 24 Hours 05/24/20 05/24/20 05/24/20 05/24/20 15:00 19:15 19:28 22:49 Temp 98.5 98.7 99.6 98.5 98.7 99.6 Pulse 90 101 105 Resp 16 16 16 B/P (MAP) 154/75 (101) 171/94 (119) 164/93 (116) Pulse Ox 97 97 95 O2 Delivery Room Air Room Air Room Air Room Air 05/25/20 05/25/20 05/25/20 05/25/20 01:25 02:49 07:00 11:00 Temp 99.2 98.7 98.9 99.2 98.7 98.9 Pulse 110 107 104 97 Resp 18 18 16 16 B/P (MAP) 164/74 (104) 156/69 (98) 142/68 (92) 128/65 (86) Pulse Ox 98 94 94 97 O2 Delivery Room Air Room Air Room Air Room Air Intake and Output 05/24/20 05/24/20 05/25/20 15:00 23:00 07:00 Intake Total 0 ml 0 ml Output Total 1050 ml 375 ml 600 ml Balance -1050 ml -375 ml -600 ml Justicifation of Admission Dx: Justifications for Admission: Justification of Admission Dx: Yes ALEXANDRA BAUGH MD May 25, 2020 13:09
[2020-05-25] MEDS: ENOXAPARIN 40 MG/0.4 ML SYRINGE. SQ SCH (17:18)
[2020-05-25] MEDS: PSYLLIUM HUSK (SUGAR FREE) 1 PKT PACKET PO SCH (20:49)
[2020-05-25] MEDS: traZODone 100 MG TABLET. PO SCH (20:49)
--- NOTE | 2020-05-25 20:49 | PDOC ---
F/U PHYSCH PROG NOTE Subjective: female seen for follow-up. Progress is reviewed with nursing staff. Patient had last seizure last night. Since morning she did not experience any seizure. When seen she appears seizure-free. However she continues to be confused and disoriented. Denies suicidal or homicidal thoughts. Denies auditory or visual hallucinations. No evidence of laila or hypomania. Objective: 14 point review of system is otherwise negative except for stated above. Vital Signs: Vital Signs Date Time Temp Pulse Resp B/P (MAP) Pulse Ox O2 Delivery O2 Flow Rate FiO2 05/25/20 19:29 99.5 96 18 153/108 (123) 94 Room Air 99.5 Labs: Laboratory Tests Test 05/25/20 07:17 05/25/20 11:54 05/25/20 16:59 Glucose (Fingerstick) 140 mg/dL (70-99) H 165 mg/dL (70-99) H 158 mg/dL (70-99) H Medications: Current Medications Medications (Trade) Dose Ordered Sig/[place] Start Time Stop Time Status Last Admin Dose Admin Acetaminophen (Tylenol) 650 mg PRN Q6HRS PRN 05/22/20 16:15 05/23/20 17:53 650 MG Alprazolam (Xanax) 1 mg TID PRN 05/22/20 15:30 05/23/20 19:18 DC 05/23/20 15:23 1 MG Clonazepam (KlonoPIN) 0.5 mg PRN Q6HRS PRN 05/23/20 19:30 Dextrose (Dextrose 50%-Water Syringe) 12.5 gm PRN Q15MIN PRN 05/22/20 16:15 Enoxaparin Sodium (Lovenox 40mg Syringe) 40 mg Q24H 05/22/20 17:00 05/25/20 17:18 40 MG Fluoxetine HCl (PROzac) 40 mg DAILYWBKFT 05/23/20 08:00 05/25/20 08:45 40 MG Gabapentin (Neurontin) 300 mg TID 05/23/20 21:00 05/25/20 15:09 300 MG Gad[place]erate Meglumine (Dotarem) 15.2 ml 1X ONCE 05/24/20 14:15 05/24/20 14:16 DC 05/24/20 14:15 15.2 ML Insulin Human Lispro (HumaLOG) 0-7 UNITS TIDACHC 05/22/20 16:30 05/25/20 17:21 3 UNITS Levetiracetam 1000 mg/Dextrose 110 ml @ 440 mls/hr 1X STAT 05/24/20 11:21 05/24/20 11:35 DC 05/24/20 12:01 440 MLS/HR Levetiracetam 500 mg/Dextrose 105 ml @ 420 mls/hr Q12H 05/23/20 03:30 05/24/20 11:19 DC 05/24/20 03:24 420 MLS/HR Levetiracetam 750 mg/Dextrose 107.5 ml @ 420 mls/hr Q12H 05/24/20 21:00 05/25/20 08:43 420 MLS/HR Levothyroxine Sodium (Synthroid) 137 mcg DAILY06 05/23/20 06:00 05/25/20 06:11 137 MCG Lorazepam (Ativan Inj) 2 mg 1X ONCE 05/22/20 13:15 05/22/20 13:16 DC 05/22/20 13:17 1 MG Lorazepam (Ativan) 1 mg Q6HRS 05/24/20 18:00 05/25/20 17:18 1 MG Metformin HCl (Glucophage) 500 mg BIDWMEALS 05/22/20 17:00 05/22/20 16:37 DC Multi-Ingredient Mouthwash/Gargle (Magic Mouthwash) 10 ml PRN QID PRN 05/22/20 16:15 05/23/20 09:20 10 ML Ondansetron HCl (Zofran) 4 mg PRN Q4HRS PRN 05/22/20 13:00 Psyllium Hydrophilic Mucilloid (Metamucil Fiber Packet) 1 pkt QHS 05/22/20 21:00 05/22/20 21:29 1 PKT Risperidone (RisperDAL) 1 mg QHS 05/23/20 21:00 05/24/20 17:42 DC Sodium Chloride 1,000 ml @ 100 mls/hr Q10H 05/24/20 15:45 05/25/20 12:55 100 MLS/HR Thyroid ([place] Thyroid) 180 mg DAILY06 05/23/20 06:00 05/22/20 15:39 DC Trazodone HCl (Desyrel) 100 mg HS 05/22/20 21:00 05/24/20 20:52 100 MG Valproic Acid 500 mg/Dextrose 55 ml @ 55 mls/hr Q12HR 05/25/20 01:45 05/25/20 20:26 55 MLS/HR Physical Exam: Mental Status Exam: female appears her stated age. She is confused and anxious depressed She is disoriented Denies auditory or visual hallucinations She is preoccupied with . Denies active suicidal ideation or homicidal ideation Mood is depressed and anxious Affect is dysthymic Insight is poor Judgment is poor Impulse control is fair Attention span and concentration impaired Recent and remote memory impaired Physical Exam: Refer to Physician's note. 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 Additionally she is depressed and anxious. Appears that, Xanax has affected her mental status and cognition as well. She needs to be tapered off Xanax to DC. Initially replaced with Klonopin to prevent withdrawals and then taper Klonopin. Also recommending low-dose risperidone for delirium resolution. Additionally gabapentin to prevent seizures, benzodiazepine withdrawal 05/25/2020 patient is not having seizures episodes since morning. However, she continues to be confused and delirious. Plan: Continue Ativan 1 mg 4 times a day to replace Xanax. Will taper off later. Gabapentin 300 mg 3 times a day to prevent benzodiazepine withdrawal, manage anxiety, and craving for benzos. Risk, benefits, alternatives of the treatment are discussed. She is in agreement with plan and voiced understanding. Adverse drug reaction of the medications prescribed discussed. Psychoeducation provided. Supportive psychotherapy provided. Monitor for symptomatology, adverse drug reaction, and safety. Thank you for involving inpatient care ARTEMIO LUDWIG MD May 25, 2020 20:49
[2020-05-26] MEDS: IV NORMAL SALINE 1000ML BAG 1,000 ML IV SCH ×3 (01:40→18:11)
[2020-05-26 03:04] VITALS: BP 142/62
[2020-05-26] MEDS: LEVOTHYROXINE 137 MCG TABLET PO SCH (06:09)
[2020-05-26 07:00] VITALS: BP 148/80
[2020-05-26] MEDS: INSULIN LISPRO 300 UNITS/3 ML VIAL. SQ SCH ×4 (07:30→21:00)
--- NOTE | 2020-05-26 08:41 | PDOC ---
PROGRESS NOTES Assessment Problems Medical Problems: (1) Seizures Status: Acute New seizures, EEG showed polyspike and wave activity at the rate of 2.5-3 Hz, generalized epilepsy. Encephalopathy, still not totally cleared Thyroid cancer, anxiety, heavy Xanax user Plan Switched to oral levetiracetam and depakote Seizure precautions SNU Subjective no complaints Objective Vital Signs Date Time Temp Pulse Resp B/P (MAP) Pulse Ox O2 Delivery O2 Flow Rate FiO2 05/26/20 07:00 98.4 87 18 148/80 (102) 95 Room Air 98.4 Intake and Output 05/26/20 07:00 Intake Total 60 ml Output Total 1125 ml Balance -1065 ml Intake Oral 60 ml Output Urine Total 1125 ml PHYSICAL EXAM Alert. Oriented to person, knows location, not date Barely able to drink coffee on her own PERRL. EOMI. CN: no focal findings. Muscle tone: normal. Muscle strength: 4/5 DTR: 1+ Plantar reflex: flexor Gait: not examined in bed. Sensory exam: no abnormal findings. No cerebellar signs elicited. Review of Relevant I have reviewed the following items buck (where applicable) has been applied. Labs Laboratory Tests Test 05/24/20 12:09 05/24/20 16:58 05/24/20 20:27 05/25/20 07:17 Glucose (Fingerstick) 139 mg/dL (70-99) 132 mg/dL (70-99) 127 mg/dL (70-99) 140 mg/dL (70-99) Test 05/25/20 11:54 05/25/20 16:59 05/25/20 20:50 05/26/20 07:04 Glucose (Fingerstick) 165 mg/dL (70-99) 158 mg/dL (70-99) 126 mg/dL (70-99) 127 mg/dL (70-99) Laboratory Tests Test 05/25/20 11:54 05/25/20 16:59 05/25/20 20:50 05/26/20 07:04 Glucose (Fingerstick) 165 mg/dL (70-99) 158 mg/dL (70-99) 126 mg/dL (70-99) 127 mg/dL (70-99) Microbiology 05/23/20 Urine Culture - Preliminary, Resulted 05/23/20 Blood Culture - Preliminary, Resulted NO GROWTH AFTER 3 DAYS Medications Current Medications Ondansetron HCl (Zofran) 4 mg 1X ONCE IVP Last administered on 05/22/20at 12:57; Start 05/22/20 at 12:45; Stop 05/22/20 at 12:46; Status DC Lorazepam (Ativan Inj) 1 mg PRN Q4HRS PRN IVP ANXIETY / AGITATION Last administered on 05/22/20at 12:57; Start 05/22/20 at 13:00; Stop 05/22/20 at 13:02; Status DC Ondansetron HCl (Zofran) 4 mg PRN Q8HRS PRN IV NAUSEA/VOMITING; Start 05/22/20 at 13:00; Stop 05/22/20 at 13:00; Status DC Sodium Chloride 1,000 ml @ 100 mls/hr Q10H IV Last administered on 05/23/20at 08:47; Start 05/22/20 at 12:47; Stop 05/23/20 at 12:46; Status DC Ondansetron HCl (Zofran) 4 mg PRN Q4HRS PRN IV NAUSEA/VOMITING; Start 05/22/20 at 13:00 Lorazepam (Ativan Inj) 2 mg 1X ONCE IVP Last administered on 05/22/20at 13:17; Start 05/22/20 at 13:15; Stop 05/22/20 at 13:16; Status DC Metformin HCl (Glucophage) 500 mg BIDWMEALS PO ; Start 05/22/20 at 17:00; Stop 05/22/20 at 16:37; Status DC Alprazolam (Xanax) 2 mg Q6HRS PO ; Start 05/22/20 at 18:00; Stop 05/22/20 at 15:29; Status DC Fluoxetine HCl (PROzac) 40 mg DAILYWBKFT PO Last administered on 05/25/20at 08:45; Start 05/23/20 at 08:00 Thyroid ([place] Thyroid) 180 mg DAILY06 PO ; Start 05/23/20 at 06:00; Stop 05/22/20 at 15:39; Status DC Trazodone HCl (Desyrel) 100 mg HS PO Last administered on 05/25/20at 20:49; Start 05/22/20 at 21:00 Levetiracetam 1000 mg/Dextrose 110 ml @ 750 mls/hr 1X ONCE IV ; Start 05/22/20 at 15:00; Stop 05/22/20 at 15:08; Status Cancel Levetiracetam 500 mg/Dextrose 105 ml @ 420 mls/hr Q12H IV Last administered on 05/24/20at 03:24; Start 05/23/20 at 03:30; Stop 05/24/20 at 11:19; Status DC Alprazolam (Xanax) 1 mg TID PRN PO ANXIETY / AGITATION Last administered on 05/23/20at 15:23; Start 05/22/20 at 15:30; Stop 05/23/20 at 19:18; Status DC Levothyroxine Sodium (Synthroid) 137 mcg DAILY06 PO Last administered on 05/26/20at 06:09; Start 05/23/20 at 06:00 Enoxaparin Sodium (Lovenox 40mg Syringe) 40 mg Q24H SQ Last administered on 05/25/20at 17:18; Start 05/22/20 at 17:00 Levetiracetam 750 mg/Dextrose 107.5 ml @ 440 mls/hr 1X ONCE IV Last administered on 05/22/20at 16:11; Start 05/22/20 at 16:00; Stop 05/22/20 at 16:14; Status DC Insulin Human Lispro (HumaLOG) 0-7 UNITS TIDACHC SQ Last administered on 05/25/20at 17:21; Start 05/22/20 at 16:30 Dextrose (Dextrose 50%-Water Syringe) 12.5 gm PRN Q15MIN PRN IV SEE COMMENTS; Start 05/22/20 at 16:15 Psyllium Hydrophilic Mucilloid (Metamucil Fiber Packet) 1 pkt QHS PO Last administered on 05/22/20at 21:29; Start 05/22/20 at 21:00 Acetaminophen (Tylenol) 650 mg PRN Q6HRS PRN PO MILD PAIN / TEMP > 100.3'F Last administered on 05/23/20at 17:53; Start 05/22/20 at 16:15 Multi-Ingredient Mouthwash/Gargle (Magic Mouthwash) 10 ml PRN QID PRN PO MOUTH PAIN Last administered on 05/23/20at 09:20; Start 05/22/20 at 16:15 Gabapentin (Neurontin) 300 mg TID PO Last administered on 05/25/20at 20:49; Start 05/23/20 at 21:00 Risperidone (RisperDAL) 1 mg QHS PO ; Start 05/23/20 at 21:00; Stop 05/24/20 at 17:42; Status DC Clonazepam (KlonoPIN) 0.5 mg PRN Q6HRS PRN PO ANXIETY / AGITATION; Start 05/23/20 at 19:30 Levetiracetam 750 mg/Dextrose 107.5 ml @ 420 mls/hr Q12H IV ; Start 05/24/20 at 21:00; Stop 05/24/20 at 20:54; Status DC Levetiracetam 1000 mg/Dextrose 110 ml @ 440 mls/hr 1X STAT IV Last administered on 05/24/20at 12:01; Start 05/24/20 at 11:21; Stop 05/24/20 at 11:35; Status DC Gadoterate Meglumine (Dotarem) 15.2 ml 1X ONCE IVP Last administered on 05/24/20at 14:15; Start 05/24/20 at 14:15; Stop 05/24/20 at 14:16; Status DC Sodium Chloride 1,000 ml @ 100 mls/hr Q10H IV Last administered on 05/26/20at 01:40; Start 05/24/20 at 15:45 Lorazepam (Ativan) 1 mg Q6HRS PO Last administered on 05/26/20at 06:09; Start 05/24/20 at 18:00 Levetiracetam 750 mg/Dextrose 107.5 ml @ 420 mls/hr Q12H IV Last administered on 05/25/20at 22:24; Start 05/24/20 at 21:00 Valproic Acid 500 mg/Dextrose 55 ml @ 55 mls/hr Q12HR IV Last administered on 05/25/20at 20:26; Start 05/25/20 at 01:45 Active Scripts Active Keflex (Cephalexin) 500 Mg Capsule 1 Cap PO TID Keflex (Cephalexin) 500 Mg Capsule 500 Mg PO QID 10 Days Reported Metformin Hcl 500 Mg Tablet 500 Mg PO BIDWMEALS [place] Thyroid (Thyroid,Pork) 120 Mg Tablet 120 Mg PO DAILY Alprazolam 1 Mg Tablet 1 Mg PO TID PRN Vitals/I & O Vital Sign - Last 24 Hours 05/25/20 05/25/20 05/25/20 05/25/20 11:00 15:00 19:27 19:29 Temp 98.9 98.8 99.5 98.9 98.8 99.5 Pulse 97 98 96 Resp 16 18 18 B/P (MAP) 128/65 (86) 144/71 (95) 153/108 (123) Pulse Ox 97 96 94 O2 Delivery Room Air Room Air Room Air Room Air 05/25/20 05/26/20 05/26/20 22:49 03:04 07:00 Temp 99.2 99.4 98.4 99.2 99.4 98.4 Pulse 99 95 87 Resp 18 18 18 B/P (MAP) 132/85 (101) 142/62 (88) 148/80 (102) Pulse Ox 96 95 95 O2 Delivery Room Air Room Air Room Air Intake and Output 05/25/20 05/25/20 05/26/20 15:00 23:00 07:00 Intake Total 0 ml 60 ml 0 ml Output Total 600 ml 325 ml 200 ml Balance -600 ml -265 ml -200 ml Justicifation of Admission Dx: Justifications for Admission: Justification of Admission Dx: Yes LILO MCDANIEL MD May 26, 2020 08:41
[2020-05-26] MEDS: levETIRAcetam 500 MG TABLET PO SCH ×2 (09:39→21:02)
[2020-05-26] MEDS: GABAPENTIN 300 MG CAPSULE. PO SCH ×3 (09:39→21:03)
[2020-05-26] MEDS: FLUoxetine HCL 20 MG CAPSULE PO SCH (09:39)
[2020-05-26] MEDS: DIVALPROEX EXTENDED RELEASE 500 MG TAB.ER.24H. PO SCH ×2 (09:40→21:02)
[2020-05-26 11:03] VITALS: BP 169/80
--- NOTE | 2020-05-26 13:16 | NUR ---
Patient had another episode of seizure at 1310, lasting about 2 minutes while sitting on the recliner. VSS, patient's at the bedside and witnessed the event. Notified Dr. Seals of the seizure. We will continue to monitor.
[2020-05-26 14:59] VITALS: BP 151/72
[2020-05-26 15:28] LABS: VAL ACID 55 mcg/mL (50-100)
--- NOTE | 2020-05-26 16:29 | PDOC ---
PROGRESS NOTES Date of Service: DATE: 05/26/20 TIME: 16:23 Chief Complaint Chief Complaint Acute encephalopathy - likely post-ictal given her seizures, her TSH is also undetectable, however if she is s/p thyroidectomy she does need suppressive dosing, will change to levothyroxine 1.75mcg/kg and round up to 137mcg, stop armour thyroid. Consult neurology. Seizure precautions New onset seizures - likely 2/2 xanax dosing as she mostly takes doses at night. Has been recently reduced from 12mg total per day to 8mg total per day. Started on keppra IV. Neurology clinical documentation consultant recommendations noted and greatly appreciated. Unfortunately, she must continue on xanax and have prolonged taper, consult psych Delusional behavior - psych to evaluate Hypertension - cont meds Palpitations - telemetry Diabetes mellitus - sliding scale. Will hold metformin in the event she may require CT angiogram with contrast Hypothyroidism s/p thyroidectomy - 35 years ago to levothyroxine 137 mcg for her own safety as [place] Thyroid does not have discrete amounts of T3 or T4 and can be variable and is inappropriate therapy for total thyroid function suppression after a thyroidectomy for thyroid cancer. 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, petroleum sampler to see Hypokalemia - will replace FEN - ADAT PPX - Lovenox FULL CODE Dispo - inpatient for at least 2 midnights History of Present Illness History of Present Illness 05/24: Patient presented seizure activity while having eeg, neurolgy clinical documentation consultant aware, will follow results of MRI of the head not available at the time of this note. 05/25: Patient has not presented seizure activity over night not today. She was seen in consultation by Dr. Mejia and changes to her medications have been noted. at bedside reassurance has been provided, improving. Patient anxious to be discharged I have explained the plan of care in detail and all of their concerns addressed to the best of my abilities 05/26: Patient had a witnessed seizure this afternoon with a postictal state. She is still somewhat confused, however patient admits to a history of longstanding epilepsy, with medication noncompliance. Vitals Vitals Vital Signs Date Time Temp Pulse Resp B/P (MAP) Pulse Ox O2 Delivery O2 Flow Rate FiO2 05/26/20 14:59 98.1 117 20 151/72 (98) 97 Room Air 98.1 Physical Exam General: Alert, Cooperative, mild distress Heart: Regular rate, Normal S1, Normal S2 Lungs: Clear Abdomen: Normal bowel sounds, Soft, No tenderness, No hepatosplenomegaly, No ma sses Extremities: No clubbing, No cyanosis, No edema, Normal pulses, No tenderness/swelling Skin: No rashes, No breakdown, No significant lesion Labs LABS Laboratory Tests Test 05/25/20 16:59 05/25/20 20:50 05/26/20 07:04 05/26/20 11:45 Glucose (Fingerstick) 158 mg/dL (70-99) 126 mg/dL (70-99) 127 mg/dL (70-99) 182 mg/dL (70-99) Test 05/26/20 14:40 Valproic Acid (Depakene) Level 55 mcg/mL (50-100) Valproic Acid Last Dose Date 05/26/20 Valproic Acid Last Dose Time 0900 Review of Systems Review of Systems Full ROS unable to obtain due to clinical condition Assessment and Plan Assessmemt and Plan Problems Medical Problems: (1) Seizures Status: Acute Comment Review of Relevant I have reviewed the following items buck (where applicable) has been applied. Labs Laboratory Tests Test 05/24/20 16:58 05/24/20 20:27 05/25/20 07:17 05/25/20 11:54 Glucose (Fingerstick) 132 mg/dL (70-99) 127 mg/dL (70-99) 140 mg/dL (70-99) 165 mg/dL (70-99) Test 05/25/20 16:59 05/25/20 20:50 05/26/20 07:04 05/26/20 11:45 Glucose (Fingerstick) 158 mg/dL (70-99) 126 mg/dL (70-99) 127 mg/dL (70-99) 182 mg/dL (70-99) Test 05/26/20 14:40 Valproic Acid (Depakene) Level 55 mcg/mL (50-100) Valproic Acid Last Dose Date 05/26/20 Valproic Acid Last Dose Time 0900 Laboratory Tests Test 05/25/20 16:59 05/25/20 20:50 05/26/20 07:04 05/26/20 11:45 Glucose (Fingerstick) 158 mg/dL (70-99) 126 mg/dL (70-99) 127 mg/dL (70-99) 182 mg/dL (70-99) Test 05/26/20 14:40 Valproic Acid (Depakene) Level 55 mcg/mL (50-100) Valproic Acid Last Dose Date 05/26/20 Valproic Acid Last Dose Time 0900 Microbiology 05/23/20 Urine Culture - Final, Complete 05/23/20 Antimicrobic Susceptibility - Final, Complete 05/23/20 Blood Culture - Preliminary, Resulted NO GROWTH AFTER 3 DAYS Medications Current Medications Ondansetron HCl (Zofran) 4 mg 1X ONCE IVP Last administered on 05/22/20at 12:57; Start 05/22/20 at 12:45; Stop 05/22/20 at 12:46; Status DC Lorazepam (Ativan Inj) 1 mg PRN Q4HRS PRN IVP ANXIETY / AGITATION Last admini stered on 05/22/20at 12:57; Start 05/22/20 at 13:00; Stop 05/22/20 at 13:02; Status DC Ondansetron HCl (Zofran) 4 mg PRN Q8HRS PRN IV NAUSEA/VOMITING; Start 05/22/20 at 13:00; Stop 05/22/20 at 13:00; Status DC Sodium Chloride 1,000 ml @ 100 mls/hr Q10H IV Last administered on 05/23/20at 08:47; Start 05/22/20 at 12:47; Stop 05/23/20 at 12:46; Status DC Ondansetron HCl (Zofran) 4 mg PRN Q4HRS PRN IV NAUSEA/VOMITING; Start 05/22/20 at 13:00 Lorazepam (Ativan Inj) 2 mg 1X ONCE IVP Last administered on 05/22/20at 13:17; Start 05/22/20 at 13:15; Stop 05/22/20 at 13:16; Status DC Metformin HCl (Glucophage) 500 mg BIDWMEALS PO ; Start 05/22/20 at 17:00; Stop 05/22/20 at 16:37; Status DC Alprazolam (Xanax) 2 mg Q6HRS PO ; Start 05/22/20 at 18:00; Stop 05/22/20 at 15:29; Status DC Fluoxetine HCl (PROzac) 40 mg DAILYWBKFT PO Last administered on 05/26/20at 09:39; Start 05/23/20 at 08:00 Thyroid ([place] Thyroid) 180 mg DAILY06 PO ; Start 05/23/20 at 06:00; Stop 05/22/20 at 15:39; Status DC Trazodone HCl (Desyrel) 100 mg HS PO Last administered on 05/25/20at 20:49; Start 05/22/20 at 21:00 Levetiracetam 1000 mg/Dextrose 110 ml @ 750 mls/hr 1X ONCE IV ; Start 05/22/20 at 15:00; Stop 05/22/20 at 15:08; Status Cancel Levetiracetam 500 mg/Dextrose 105 ml @ 420 mls/hr Q12H IV Last administered on 05/24/20at 03:24; Start 05/23/20 at 03:30; Stop 05/24/20 at 11:19; Status DC Alprazolam (Xanax) 1 mg TID PRN PO ANXIETY / AGITATION Last administered on 05/23/20at 15:23; Start 05/22/20 at 15:30; Stop 05/23/20 at 19:18; Status DC Levothyroxine Sodium (Synthroid) 137 mcg DAILY06 PO Last administered on 05/26/20at 06:09; Start 05/23/20 at 06:00 Enoxaparin Sodium (Lovenox 40mg Syringe) 40 mg Q24H SQ Last administered on 05/25/20at 17:18; Start 05/22/20 at 17:00 Levetiracetam 750 mg/Dextrose 107.5 ml @ 440 mls/hr 1X ONCE IV Last administered on 05/22/20at 16:11; Start 05/22/20 at 16:00; Stop 05/22/20 at 16:14; Status DC Insulin Human Lispro (HumaLOG) 0-7 UNITS TIDACHC SQ Last administered on 05/26/20at 12:54; Start 05/22/20 at 16:30 Dextrose (Dextrose 50%-Water Syringe) 12.5 gm PRN Q15MIN PRN IV SEE COMMENTS; Start 05/22/20 at 16:15 Psyllium Hydrophilic Mucilloid (Metamucil Fiber Packet) 1 pkt QHS PO Last administered on 05/22/20at 21:29; Start 05/22/20 at 21:00 Acetaminophen (Tylenol) 650 mg PRN Q6HRS PRN PO MILD PAIN / TEMP > 100.3'F Last administered on 05/23/20at 17:53; Start 05/22/20 at 16:15 Multi-Ingredient Mouthwash/Gargle (Magic Mouthwash) 10 ml PRN QID PRN PO MOUTH PAIN Last administered on 05/23/20at 09:20; Start 05/22/20 at 16:15 Gabapentin (Neurontin) 300 mg TID PO Last administered on 05/26/20at 14:51; Start 05/23/20 at 21:00 Risperidone (RisperDAL) 1 mg QHS PO ; Start 05/23/20 at 21:00; Stop 05/24/20 at 17:42; Status DC Clonazepam (KlonoPIN) 0.5 mg PRN Q6HRS PRN PO ANXIETY / AGITATION; Start 05/23/20 at 19:30 Levetiracetam 750 mg/Dextrose 107.5 ml @ 420 mls/hr Q12H IV ; Start 05/24/20 at 21:00; Stop 05/24/20 at 20:54; Status DC Levetiracetam 1000 mg/Dextrose 110 ml @ 440 mls/hr 1X STAT IV Last administered on 05/24/20at 12:01; Start 05/24/20 at 11:21; Stop 05/24/20 at 11:35; Status DC Gadoterate Meglumine (Dotarem) 15.2 ml 1X ONCE IVP Last administered on 05/24/20at 14:15; Start 05/24/20 at 14:15; Stop 05/24/20 at 14:16; Status DC Sodium Chloride 1,000 ml @ 100 mls/hr Q10H IV Last administered on 05/26/20at 09:38; Start 05/24/20 at 15:45 Lorazepam (Ativan) 1 mg Q6HRS PO Last administered on 05/26/20at 12:47; Start 05/24/20 at 18:00 Levetiracetam 750 mg/Dextrose 107.5 ml @ 420 mls/hr Q12H IV Last administered on 05/25/20at 22:24; Start 05/24/20 at 21:00; Stop 05/26/20 at 08:38; Status DC Valproic Acid 500 mg/Dextrose 55 ml @ 55 mls/hr Q12HR IV Last administered on 05/25/20at 20:26; Start 05/25/20 at 01:45; Stop 05/26/20 at 08:38; Status DC Levetiracetam (Keppra) 500 mg BID PO Last administered on 05/26/20at 09:39; Start 05/26/20 at 09:00 Divalproex Sodium (Depakote Er) 500 mg BID PO Last administered on 05/26/20at 09:40; Start 05/26/20 at 09:00 Active Scripts Active Keflex (Cephalexin) 500 Mg Capsule 1 Cap PO TID Keflex (Cephalexin) 500 Mg Capsule 500 Mg PO QID 10 Days Reported Metformin Hcl 500 Mg Tablet 500 Mg PO BIDWMEALS [place] Thyroid (Thyroid,Pork) 120 Mg Tablet 120 Mg PO DAILY Alprazolam 1 Mg Tablet 1 Mg PO TID PRN Vitals/I & O Vital Sign - Last 24 Hours 05/25/20 05/25/20 05/25/20 05/26/20 19:27 19:29 22:49 03:04 Temp 99.5 99.2 99.4 99.5 99.2 99.4 Pulse 96 99 95 Resp 18 18 18 B/P (MAP) 153/108 (123) 132/85 (101) 142/62 (88) Pulse Ox 94 96 95 O2 Delivery Room Air Room Air Room Air Room Air 05/26/20 05/26/20 05/26/20 05/26/20 07:00 08:00 11:03 14:59 Temp 98.4 98.7 98.1 98.4 98.7 98.1 Pulse 87 109 117 Resp 18 18 20 B/P (MAP) 148/80 (102) 169/80 (109) 151/72 (98) Pulse Ox 95 97 97 O2 Delivery Room Air Room Air Room Air Room Air Intake and Output 05/25/20 05/25/20 05/26/20 15:00 23:00 07:00 Intake Total 0 ml 60 ml 0 ml Output Total 600 ml 325 ml 200 ml Balance -600 ml -265 ml -200 ml Justicifation of Admission Dx: Justifications for Admission: Justification of Admission Dx: Yes LEONEL CRAWFORD MD May 26, 2020 16:29
[2020-05-26] MEDS: ENOXAPARIN 40 MG/0.4 ML SYRINGE. SQ SCH (17:06)
[2020-05-26 19:20] VITALS: BP 159/88
--- NOTE | 2020-05-26 20:51 | NUR ---
Pt hallucinating, yelling "please dont kill me", "don't shoot me", "dont kill my ". Pt states that there are two men in the room. Pt also stated that "you all are apart of their gang, your trying to kill me". HR 120-130's, Pt has perspiration on forehead and palms. Gave PRN dose of Klonopin, no change in condition. Attempted to call Dr. Mejia, voicemail was full and unable to leave a message. Call placed to Dr. Elmore, Orders received. Will attempt to call Dr. Mejia again. Will continue to monitor patient. Call light in reach.
[2020-05-26] MEDS: PSYLLIUM HUSK (SUGAR FREE) 1 PKT PACKET PO SCH (21:00)
[2020-05-26] MEDS: traZODone 100 MG TABLET. PO SCH (21:03)
[2020-05-26 22:40] VITALS: BP 143/74
[2020-05-27 02:11] VITALS: BP 146/59
[2020-05-27] MEDS: LEVOTHYROXINE 137 MCG TABLET PO SCH (05:51)
[2020-05-27 06:59] LABS: CREATININE 0.5 mg/dL (0.6-1.0); GFR 120.9
[2020-05-27 07:00] VITALS: BP 144/52
[2020-05-27] MEDS: INSULIN LISPRO 300 UNITS/3 ML VIAL. SQ SCH ×4 (07:30→21:00)
--- NOTE | 2020-05-27 08:28 | PDOC ---
PROGRESS NOTES Assessment Problems Medical Problems: (1) Seizures Status: Acute New seizures, EEG showed polyspike and wave activity at the rate of 2.5-3 Hz, generalized epilepsy. She had a seizure yesterday afternoon Chronic high-dose benzodiazepine use, contribution from benzodiazepine withdrawal Hallucinations last night, Ativan given Major depressive disorder, generalized anxiety disorder Encephalopathy, still not totally cleared. Combination of psychiatric and epileptic problems. Thyroid cancer history Plan Levetiracetam and depakote, levels drawn yesterday, I will increase the Depakote dose, await levetiracetam level, but I will up that dose as well Seizure precautions SNU, discussed with , he strongly wants to take the patient home when her seizures are stable, he can put up, he says, with the behavioral issues Also discussed with patient's son Subjective Denies pain, is eating well Objective Vital Signs Date Time Temp Pulse Resp B/P (MAP) Pulse Ox O2 Delivery O2 Flow Rate FiO2 05/27/20 02:11 98.2 95 18 146/59 (88) 95 Room Air 98.2 Intake and Output 05/27/20 07:00 Intake Total 1160 ml Output Total 3200 ml Balance -2040 ml Intake Oral 1160 ml Output Urine Total 3200 ml PHYSICAL EXAM Alert. Oriented to person, Ro[place], not date, "I don't care what the date is!" PERRL. EOMI. CN: no focal findings. Muscle tone: normal. Muscle strength: 4/5 DTR: 1+ Plantar reflex: flexor Gait: not examined in bed. Sensory exam: no abnormal findings. No cerebellar signs elicited. Review of Relevant I have reviewed the following items buck (where applicable) has been applied. Labs Laboratory Tests Test 05/25/20 11:54 05/25/20 16:59 05/25/20 20:50 05/26/20 07:04 Glucose (Fingerstick) 165 mg/dL (70-99) 158 mg/dL (70-99) 126 mg/dL (70-99) 127 mg/dL (70-99) Test 05/26/20 11:45 05/26/20 14:40 05/26/20 16:21 05/26/20 21:02 Glucose (Fingerstick) 182 mg/dL (70-99) 195 mg/dL (70-99) 170 mg/dL (70-99) Valproic Acid (Depakene) Level 55 mcg/mL (50-100) Valproic Acid Last Dose Date 05/26/20 Valproic Acid Last Dose Time 0900 Test 05/27/20 05:15 05/27/20 08:03 Platelet Count 401 x10^3/uL (140-400) Creatinine 0.5 mg/dL (0.6-1.0) Estimated GFR (Cockcroft-Gault) 120.9 Glucose (Fingerstick) 143 mg/dL (70-99) Laboratory Tests Test 05/26/20 11:45 05/26/20 14:40 05/26/20 16:21 05/26/20 21:02 Glucose (Fingerstick) 182 mg/dL (70-99) 195 mg/dL (70-99) 170 mg/dL (70-99) Valproic Acid (Depakene) Level 55 mcg/mL (50-100) Valproic Acid Last Dose Date 05/26/20 Valproic Acid Last Dose Time 0900 Test 05/27/20 05:15 05/27/20 08:03 Platelet Count 401 x10^3/uL (140-400) Creatinine 0.5 mg/dL (0.6-1.0) Estimated GFR (Cockcroft-Gault) 120.9 Glucose (Fingerstick) 143 mg/dL (70-99) Microbiology 05/23/20 Urine Culture - Final, Complete 05/23/20 Antimicrobic Susceptibility - Final, Complete 05/23/20 Blood Culture - Preliminary, Resulted NO GROWTH AFTER 4 DAYS Medications Current Medications Ondansetron HCl (Zofran) 4 mg 1X ONCE IVP Last administered on 05/22/20at 12:57; Start 05/22/20 at 12:45; Stop 05/22/20 at 12:46; Status DC Lorazepam (Ativan Inj) 1 mg PRN Q4HRS PRN IVP ANXIETY / AGITATION Last administered on 05/22/20at 12:57; Start 05/22/20 at 13:00; Stop 05/22/20 at 13:02; Status DC Ondansetron HCl (Zofran) 4 mg PRN Q8HRS PRN IV NAUSEA/VOMITING; Start 05/22/20 at 13:00; Stop 05/22/20 at 13:00; Status DC Sodium Chloride 1,000 ml @ 100 mls/hr Q10H IV Last administered on 05/23/20at 08:47; Start 05/22/20 at 12:47; Stop 05/23/20 at 12:46; Status DC Ondansetron HCl (Zofran) 4 mg PRN Q4HRS PRN IV NAUSEA/VOMITING; Start 05/22/20 at 13:00 Lorazepam (Ativan Inj) 2 mg 1X ONCE IVP Last administered on 05/22/20at 13:17; Start 05/22/20 at 13:15; Stop 05/22/20 at 13:16; Status DC Metformin HCl (Glucophage) 500 mg BIDWMEALS PO ; Start 05/22/20 at 17:00; Stop 05/22/20 at 16:37; Status DC Alprazolam (Xanax) 2 mg Q6HRS PO ; Start 05/22/20 at 18:00; Stop 05/22/20 at 15:29; Status DC Fluoxetine HCl (PROzac) 40 mg DAILYWBKFT PO Last administered on 05/26/20at 09:39; Start 05/23/20 at 08:00 Thyroid ([place] Thyroid) 180 mg DAILY06 PO ; Start 05/23/20 at 06:00; Stop 05/22/20 at 15:39; Status DC Trazodone HCl (Desyrel) 100 mg HS PO Last administered on 05/26/20at 21:03; Start 05/22/20 at 21:00 Levetiracetam 1000 mg/Dextrose 110 ml @ 750 mls/hr 1X ONCE IV ; Start 05/22/20 at 15:00; Stop 05/22/20 at 15:08; Status Cancel Levetiracetam 500 mg/Dextrose 105 ml @ 420 mls/hr Q12H IV Last administered on 05/24/20at 03:24; Start 05/23/20 at 03:30; Stop 05/24/20 at 11:19; Status DC Alprazolam (Xanax) 1 mg TID PRN PO ANXIETY / AGITATION Last administered on 05/23/20at 15:23; Start 05/22/20 at 15:30; Stop 05/23/20 at 19:18; Status DC Levothyroxine Sodium (Synthroid) 137 mcg DAILY06 PO Last administered on 05:51; Start 05/23/20 at 06:00 Enoxaparin Sodium (Lovenox 40mg Syringe) 40 mg Q24H SQ Last administered on 05/26/20at 17:06; Start 05/22/20 at 17:00 Levetiracetam 750 mg/Dextrose 107.5 ml @ 440 mls/hr 1X ONCE IV Last administered on 05/22/20at 16:11; Start 05/22/20 at 16:00; Stop 05/22/20 at 16:14; Status DC Insulin Human Lispro (HumaLOG) 0-7 UNITS TIDACHC SQ Last administered on 05/26/20at 17:09; Start 05/22/20 at 16:30 Dextrose (Dextrose 50%-Water Syringe) 12.5 gm PRN Q15MIN PRN IV SEE COMMENTS; Start 05/22/20 at 16:15 Psyllium Hydrophilic Mucilloid (Metamucil Fiber Packet) 1 pkt QHS PO Last administered on 05/22/20at 21:29; Start 05/22/20 at 21:00 Acetaminophen (Tylenol) 650 mg PRN Q6HRS PRN PO MILD PAIN / TEMP > 100.3'F Last administered on 05/23/20at 17:53; Start 05/22/20 at 16:15 Multi-Ingredient Mouthwash/Gargle (Magic Mouthwash) 10 ml PRN QID PRN PO MOUTH PAIN Last administered on 05/23/20at 09:20; Start 05/22/20 at 16:15 Gabapentin (Neurontin) 300 mg TID PO Last administered on 05/26/20at 21:03; Start 05/23/20 at 21:00 Risperidone (RisperDAL) 1 mg QHS PO ; Start 05/23/20 at 21:00; Stop 05/24/20 at 17:42; Status DC Clonazepam (KlonoPIN) 0.5 mg PRN Q6HRS PRN PO ANXIETY / AGITATION Last administered on 05/26/20at 19:50; Start 05/23/20 at 19:30 Levetiracetam 750 mg/Dextrose 107.5 ml @ 420 mls/hr Q12H IV ; Start 05/24/20 at 21:00; Stop 05/24/20 at 20:54; Status DC Levetiracetam 1000 mg/Dextrose 110 ml @ 440 mls/hr 1X STAT IV Last administered on 05/24/20at 12:01; Start 05/24/20 at 11:21; Stop 05/24/20 at 11:35; Status DC Gadoterate Meglumine (Dotarem) 15.2 ml 1X ONCE IVP Last administered on 05/24/20at 14:15; Start 05/24/20 at 14:15; Stop 05/24/20 at 14:16; Status DC Sodium Chloride 1,000 ml @ 100 mls/hr Q10H IV Last administered on 05/26/20at 18:11; Start 05/24/20 at 15:45 Lorazepam (Ativan) 1 mg Q6HRS PO Last administered on 05/27/20at 05:51; Start 05/24/20 at 18:00 Levetiracetam 750 mg/Dextrose 107.5 ml @ 420 mls/hr Q12H IV Last administered on 05/25/20at 22:24; Start 05/24/20 at 21:00; Stop 05/26/20 at 08:38; Status DC Valproic Acid 500 mg/Dextrose 55 ml @ 55 mls/hr Q12HR IV Last administered on 05/25/20at 20:26; Start 05/25/20 at 01:45; Stop 05/26/20 at 08:38; Status DC Levetiracetam (Keppra) 500 mg BID PO Last administered on 05/26/20 21:02; Start 05/26/20 at 09:00 Divalproex Sodium (Depakote Er) 500 mg BID PO Last administered on 05/26/20 21:02; Start 05/26/20 at 09:00 Lorazepam (Ativan Inj) 1 mg PRN Q4HRS PRN IVP ANXIETY / AGITATION Last administered on 05/26/20at 21:02; Start 05/26/20 at 21:00 Active Scripts Active Keflex (Cephalexin) 500 Mg Capsule 1 Cap PO TID Keflex (Cephalexin) 500 Mg Capsule 500 Mg PO QID 10 Days Reported Metformin Hcl 500 Mg Tablet 500 Mg PO BIDWMEALS [place] Thyroid (Thyroid,Pork) 120 Mg Tablet 120 Mg PO DAILY Alprazolam 1 Mg Tablet 1 Mg PO TID PRN Vitals/I & O Vital Sign - Last 24 Hours 05/26/20 05/26/20 05/26/20 05/26/20 11:03 14:59 19:20 20:00 Temp 98.7 98.1 98.3 98.7 98.1 98.3 Pulse 109 117 119 Resp 18 20 18 B/P (MAP) 169/80 (109) 151/72 (98) 159/88 (111) Pulse Ox 97 97 97 O2 Delivery Room Air Room Air Room Air Room Air 05/26/20 05/27/20 22:40 02:11 Temp 98.2 98.2 98.2 98.2 Pulse 103 95 Resp 18 18 B/P (MAP) 143/74 (97) 146/59 (88) Pulse Ox 96 95 O2 Delivery Room Air Room Air Intake and Output 05/26/20 05/26/20 05/27/20 15:00 23:00 07:00 Intake Total 200 ml 720 ml 240 ml Output Total 500 ml 1000 ml 1700 ml Balance -300 ml -280 ml -1460 ml Justicifation of Admission Dx: Justifications for Admission: Justification of Admission Dx: Yes LILO MCDANIEL MD May 27, 2020 08:28
[2020-05-27] MEDS: levETIRAcetam 500 MG TABLET PO SCH ×2 (10:21→21:03)
[2020-05-27] MEDS: IV NORMAL SALINE 1000ML BAG 1,000 ML IV SCH ×2 (10:21→20:56)
[2020-05-27] MEDS: GABAPENTIN 300 MG CAPSULE. PO SCH ×3 (10:22→21:03)
[2020-05-27] MEDS: FLUoxetine HCL 20 MG CAPSULE PO SCH (10:22)
[2020-05-27] MEDS: DIVALPROEX EXTENDED RELEASE 500 MG TAB.ER.24H. PO SCH ×2 (10:23→21:02)
[2020-05-27 11:00] VITALS: BP 110/71
--- NOTE | 2020-05-27 11:34 | NUR ---
SS following up with discharge planning. SS reviewed pt chart and discussed with pt RN. Pt is currently on room air. Pt's family declined senior living unit. Pt's family wanting to take pt home with [facility], ; fax [phone], when medically stable. Pt's RN, notified SS that seizures stopped yesterday but pt has had hallucinations. SS discussed [facility] placement with pt's spouse via phone. Pt's spouse declined at this time but reported that he would keep that option in mind at home if things got out of hand. Pt's RN notified. SS will continue to follow for discharge planning.
[2020-05-27 15:00] VITALS: BP 140/84
--- NOTE | 2020-05-27 16:17 | PDOC ---
F/U PHYSCH PROG NOTE Subjective: 74-year-old female with history of recurrent seizures and Xanax use disorder seen for follow-up. Progress is reviewed with nursing staff reportedly last seizure was yesterday evening. Since then she is seizure-free. However, she is reportedly very delirious, having auditory and visual hallucinations and confused. When seen she thought that her was sitting with her daughter he was not. She is completely disoriented. Denies suicidal or homicidal thoughts. Denies auditory or visual hallucinations. Objective: Vital Signs: Vital Signs Date Time Temp Pulse Resp B/P (MAP) Pulse Ox O2 Delivery O2 Flow Rate FiO2 05/27/20 15:00 98.0 104 18 140/84 (102) 95 Room Air 98.0 Labs: Laboratory Tests Test 05/26/20 16:21 05/26/20 21:02 05/27/20 05:15 05/27/20 08:03 Glucose (Fingerstick) 195 mg/dL (70-99) H 170 mg/dL (70-99) H 143 mg/dL (70-99) H Platelet Count 401 x10^3/uL (140-400) H Creatinine 0.5 mg/dL (0.6-1.0) L Estimated GFR (Cockcroft-Gault) 120.9 Test 05/27/20 11:34 Glucose (Fingerstick) 173 mg/dL (70-99) H Laboratory Tests 05/27/20 05:15 Laboratory Tests 05/27/20 05:15 Medications: Current Medications Medications (Trade) Dose Ordered Sig/Pacheco Start Time Stop Time Status Last Admin Dose Admin Acetaminophen (Tylenol) 650 mg PRN Q6HRS PRN 05/22/20 16:15 05/23/20 17:53 650 MG Alprazolam (Xanax) 1 mg TID PRN 05/22/20 15:30 05/23/20 19:18 DC 05/23/20 15:23 1 MG Clonazepam (KlonoPIN) 0.5 mg PRN Q6HRS PRN 05/23/20 19:30 05/26/20 19:50 0.5 MG Dextrose (Dextrose 50%-Water Syringe) 12.5 gm PRN Q15MIN PRN 05/22/20 16:15 Divalproex Sodium (Depakote Er) 1,000 mg BID 05/27/20 09:00 05/27/20 10:23 1,000 MG Enoxaparin Sodium (Lovenox 40mg Syringe) 40 mg Q24H 05/22/20 17:00 05/26/20 17:06 40 MG Fluoxetine HCl (PROzac) 40 mg DAILYWBKFT 05/23/20 08:00 05/27/20 10:22 40 MG Gabapentin (Neurontin) 300 mg TID 05/23/20 21:00 05/27/20 13:47 300 MG Gadoterate Meglumine (Dotarem) 15.2 ml 1X ONCE 05/24/20 14:15 05/24/20 14:16 DC 05/24/20 14:15 15.2 ML Insulin Human Lispro (HumaLOG) 0-7 UNITS TIDACHC 05/22/20 16:30 05/27/20 13:27 3 UNITS Levetiracetam (Keppra) 750 mg BID 05/27/20 09:00 05/27/20 10:21 750 MG Levetiracetam 1000 mg/Dextrose 110 ml @ 440 mls/hr 1X STAT 05/24/20 11:21 05/24/20 11:35 DC 05/24/20 12:01 440 MLS/HR Levetiracetam 500 mg/Dextrose 105 ml @ 420 mls/hr Q12H 05/23/20 03:30 05/24/20 11:19 DC 05/24/20 03:24 420 MLS/HR Levetiracetam 750 mg/Dextrose 107.5 ml @ 420 mls/hr Q12H 05/24/20 21:00 05/26/20 08:38 DC 05/25/20 22:24 420 MLS/HR Levothyroxine Sodium (Synthroid) 137 mcg DAILY06 05/23/20 06:00 05/27/20 05:51 137 MCG Lorazepam (Ativan Inj) 1 mg PRN Q4HRS PRN 05/26/20 21:00 05/26/20 21:02 1 MG Lorazepam (Ativan) 1 mg Q6HRS 05/24/20 18:00 05/27/20 10:22 1 MG Metformin HCl (Glucophage) 500 mg BIDWMEALS 05/22/20 17:00 05/22/20 16:37 DC Multi-Ingredient Mouthwash/Gargle (Magic Mouthwash) 10 ml PRN QID PRN 05/22/20 16:15 05/23/20 09:20 10 ML Ondansetron HCl (Zofran) 4 mg PRN Q4HRS PRN 05/22/20 13:00 Psyllium Hydrophilic Mucilloid (Metamucil Fiber Packet) 1 pkt QHS 05/22/20 21:00 05/22/20 21:29 1 PKT Risperidone (RisperDAL) 1 mg HS 05/27/20 21:00 UNV Sodium Chloride 1,000 ml @ 100 mls/hr Q10H 05/24/20 15:45 05/27/20 10:21 100 MLS/HR Thyroid ([place] Thyroid) 180 mg DAILY06 05/23/20 06:00 05/22/20 15:39 DC Trazodone HCl (Desyrel) 100 mg HS 05/22/20 21:00 05/26/20 21:03 100 MG Valproic Acid 500 mg/Dextrose 55 ml @ 55 mls/hr Q12HR 05/25/20 01:45 05/26/20 08:38 DC 05/25/20 20:26 55 MLS/HR Physical Exam: Mental Status Exam: female appears her stated age Uncooperative due to delirium She is disoriented Thought processes disorganized Denies suicidal or homicidal thoughts. She has auditory hallucinations denies visual hallucinations She is delusional Mood is dysphoric Affect is dysthymic Insight, judgment, impulse control are poor Attention span and concentration impaired Recent and remote memory impaired Physical Exam: Refer to Physician's note. 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 Additionally she is depressed and anxious. Appears that, Xanax has affected her mental status and cognition as well. She needs to be tapered off Xanax to DC. Initially replaced with Klonopin to prevent withdrawals and then taper Klonopin. Also recommending low-dose risperidone for delirium resolution. Additionally gabapentin to prevent seizures, benzodiazepine withdrawal 05/25/2020 patient is not having seizures episodes since morning. However, she continues to be confused and delirious. 05/27/2020. She appears more confused and delirious. Reportedly having auditory hallucinations and delusional. We will add antipsychotic. Plan: Add risperidone 1 mg at bedtime for the resolution of delirium and auditory hallucinations. Gabapentin 300 mg 3 times a day to prevent benzodiazepine withdrawal, manage anxiety, and craving for benzos. Risk, benefits, alternatives of the treatment are discussed. She is in agreement with plan and voiced understanding. Adverse drug reaction of the medications prescribed discussed. Psychoeducation provided. Supportive psychotherapy provided. Monitor for symptomatology, adverse drug reaction, and safety. Thank you for involving inpatient care ARTEMIO LUDWIG MD May 27, 2020 16:17
--- NOTE | 2020-05-27 17:15 | PDOC ---
PROGRESS NOTES Date of Service: DATE: 05/27/20 TIME: 17:14 Chief Complaint Chief Complaint Acute encephalopathy - likely post-ictal given her seizures, her TSH is also undetectable, however if she is s/p thyroidectomy she does need suppressive dosing, will change to levothyroxine 1.75mcg/kg and round up to 137mcg, stop armour thyroid. Consult neurology. Seizure precautions New onset seizures - likely 2/2 xanax dosing as she mostly takes doses at night. Has been recently reduced from 12mg total per day to 8mg total per day. Started on keppra IV. Neurology technology consultant recommendations noted and greatly appreciated. Unfortunately, she must continue on xanax and have prolonged taper, consult psych Delusional behavior - psych to evaluate Hypertension - cont meds Palpitations - telemetry Diabetes mellitus - sliding scale. Will hold metformin in the event she may require CT angiogram with contrast Hypothyroidism s/p thyroidectomy - 35 years ago to levothyroxine 137 mcg for her own safety as [place] Thyroid does not have discrete amounts of T3 or T4 and can be variable and is inappropriate therapy for total thyroid function suppression after a thyroidectomy for thyroid cancer. 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, sock drier to see Hypokalemia - will replace FEN - ADAT PPX - Lovenox FULL CODE Dispo - inpatient for at least 2 midnights History of Present Illness History of Present Illness 05/24: Patient presented seizure activity while having eeg, neurolgy technology consultant aware, will follow results of MRI of the head not available at the time of this note. 05/25: Patient has not presented seizure activity over night not today. She was seen in consultation by Dr. Mejia and changes to her medications have been noted. at bedside reassurance has been provided, improving. Patient anxious to be discharged I have explained the plan of care in detail and all of their concerns addressed to the best of my abilities 05/26: Patient had a witnessed seizure this afternoon with a postictal state. She is still somewhat confused, however patient admits to a history of longstanding epilepsy, with medication noncompliance. 05/27: Patient admits to some confusion yesterday. She does not remember meeting me yesterday after her witnessed seizure. She still slightly confused, difficulty with word finding. Vitals Vitals Vital Signs Date Time Temp Pulse Resp B/P (MAP) Pulse Ox O2 Delivery O2 Flow Rate FiO2 05/27/20 15:00 98.0 104 18 140/84 (102) 95 Room Air 98.0 Physical Exam General: Alert, Cooperative, mild distress Heart: Regular rate, Normal S1, Normal S2 Lungs: Clear Abdomen: Normal bowel sounds, Soft, No tenderness, No hepatosplenomegaly, No masses Extremities: No clubbing, No cyanosis, No edema, Normal pulses, No tenderness/swelling Skin: No rashes, No breakdown, No significant lesion Labs LABS Laboratory Tests Test 05/26/20 21:02 05/27/20 05:15 05/27/20 08:03 05/27/20 11:34 Glucose (Fingerstick) 170 mg/dL (70-99) 143 mg/dL (70-99) 173 mg/dL (70-99) Platelet Count 401 x10^3/uL (140-400) Creatinine 0.5 mg/dL (0.6-1.0) Estimated GFR (Cockcroft-Gault) 120.9 Test 05/27/20 17:05 Glucose (Fingerstick) 182 mg/dL (70-99) Review of Systems Review of Systems Unable to obtain due to clinical condition Assessment and Plan Assessmemt and Plan Problems Medical Problems: (1) Seizures Status: Acute Comment Review of Relevant I have reviewed the following items buck (where applicable) has been applied. Labs Laboratory Tests Test 05/25/20 20:50 05/26/20 07:04 05/26/20 10:20 05/26/20 11:45 Glucose (Fingerstick) 126 mg/dL (70-99) 127 mg/dL (70-99) 182 mg/dL (70-99) Coronavirus (PCR) Not detected (Not Detected) Test 05/26/20 14:40 05/26/20 16:21 05/26/20 21:02 05/27/20 05:15 Valproic Acid (Depakene) Level 55 mcg/mL (50-100) Valproic Acid Last Dose Date 05/26/20 Valproic Acid Last Dose Time 0900 Glucose (Fingerstick) 195 mg/dL (70-99) 170 mg/dL (70-99) Platelet Count 401 x10^3/uL (140-400) Creatinine 0.5 mg/dL (0.6-1.0) Estimated GFR (Cockcroft-Gault) 120.9 Test 05/27/20 08:03 05/27/20 11:34 05/27/20 17:05 Glucose (Fingerstick) 143 mg/dL (70-99) 173 mg/dL (70-99) 182 mg/dL (70-99) Laboratory Tests Test 05/26/20 21:02 05/27/20 05:15 05/27/20 08:03 05/27/20 11:34 Glucose (Fingerstick) 170 mg/dL (70-99) 143 mg/dL (70-99) 173 mg/dL (70-99) Platelet Count 401 x10^3/uL (140-400) Creatinine 0.5 mg/dL (0.6-1.0) Estimated GFR (Cockcroft-Gault) 120.9 Test 05/27/20 17:05 Glucose (Fingerstick) 182 mg/dL (70-99) Microbiology 05/23/20 Urine Culture - Final, Complete 05/23/20 Antimicrobic Susceptibility - Final, Complete 05/23/20 Blood Culture - Preliminary, Resulted NO GROWTH AFTER 4 DAYS Medications Current Medications Ondansetron HCl (Zofran) 4 mg 1X ONCE IVP Last administered on 05/22/20at 12:57; Start 05/22/20 at 12:45; Stop 05/22/20 at 12:46; Status DC Lorazepam (Ativan Inj) 1 mg PRN Q4HRS PRN IVP ANXIETY / AGITATION Last administered on 05/22/20at 12:57; Start 05/22/20 at 13:00; Stop 05/22/20 at 13:02; Status DC Ondansetron HCl (Zofran) 4 mg PRN Q8HRS PRN IV NAUSEA/VOMITING; Start 05/22/20 at 13:00; Stop 05/22/20 at 13:00; Status DC Sodium Chloride 1,000 ml @ 100 mls/hr Q10H IV Last administered on 05/23/20at 08:47; Start 05/22/20 at 12:47; Stop 05/23/20 at 12:46; Status DC Ondansetron HCl (Zofran) 4 mg PRN Q4HRS PRN IV NAUSEA/VOMITING; Start 05/22/20 at 13:00 Lorazepam (Ativan Inj) 2 mg 1X ONCE IVP Last administered on 05/22/20at 13:17; Start 05/22/20 at 13:15; Stop 05/22/20 at 13:16; Status DC Metformin HCl (Glucophage) 500 mg BIDWMEALS PO ; Start 05/22/20 at 17:00; Stop 05/22/20 at 16:37; Status DC Alprazolam (Xanax) 2 mg Q6HRS PO ; Start 05/22/20 at 18:00; Stop 05/22/20 at 15:29; Status DC Fluoxetine HCl (PROzac) 40 mg DAILYWBKFT PO Last administered on 05/27/20at 10:22; Start 05/23/20 at 08:00 Thyroid ([place] Thyroid) 180 mg DAILY06 PO ; Start 05/23/20 at 06:00; Stop 05/22/20 at 15:39; Status DC Trazodone HCl (Desyrel) 100 mg HS PO Last administered on 05/26/20at 21:03; Start 05/22/20 at 21:00 Levetiracetam 1000 mg/Dextrose 110 ml @ 750 mls/hr 1X ONCE IV ; Start 05/22/20 at 15:00; Stop 05/22/20 at 15:08; Status Cancel Levetiracetam 500 mg/Dextrose 105 ml @ 420 mls/hr Q12H IV Last administered on 05/24/20at 03:24; Start 05/23/20 at 03:30; Stop 05/24/20 at 11:19; Status DC Alprazolam (Xanax) 1 mg TID PRN PO ANXIETY / AGITATION Last administered on 05/23/20at 15:23; Start 05/22/20 at 15:30; Stop 05/23/20 at 19:18; Status DC Levothyroxine Sodium (Synthroid) 137 mcg DAILY06 PO Last administered on 05/27/20at 05:51; Start 05/23/20 at 06:00 Enoxaparin Sodium (Lovenox 40mg Syringe) 40 mg Q24H SQ Last administered on 05/26/20at 17:06; Start 05/22/20 at 17:00 Levetiracetam 750 mg/Dextrose 107.5 ml @ 440 mls/hr 1X ONCE IV Last administered on 05/22/20at 16:11; Start 05/22/20 at 16:00; Stop 05/22/20 at 16:14; Status DC Insulin Human Lispro (HumaLOG) 0-7 UNITS TIDACHC SQ Last administered on 05/27/20at 13:27; Start 05/22/20 at 16:30 Dextrose (Dextrose 50%-Water Syringe) 12.5 gm PRN Q15MIN PRN IV SEE COMMENTS; Start 05/22/20 at 16:15 Psyllium Hydrophilic Mucilloid (Metamucil Fiber Packet) 1 pkt QHS PO Last administered on 05/22/20at 21:29; Start 05/22/20 at 21:00 Acetaminophen (Tylenol) 650 mg PRN Q6HRS PRN PO MILD PAIN / TEMP > 100.3'F Last administered on 05/23/20at 17:53; Start 05/22/20 at 16:15 Multi-Ingredient Mouthwash/Gargle (Magic Mouthwash) 10 ml PRN QID PRN PO MOUTH PAIN Last administered on 05/23/20at 09:20; Start 05/22/20 at 16:15 Gabapentin (Neurontin) 300 mg TID PO Last administered on 05/27/20at 13:47; Start 05/23/20 at 21:00 Risperidone (RisperDAL) 1 mg QHS PO ; Start 05/23/20 at 21:00; Stop 05/24/20 at 17:42; Status DC Clonazepam (KlonoPIN) 0.5 mg PRN Q6HRS PRN PO ANXIETY / AGITATION Last administ ered on 05/26/20at 19:50; Start 05/23/20 at 19:30 Levetiracetam 750 mg/Dextrose 107.5 ml @ 420 mls/hr Q12H IV ; Start 05/24/20 at 21:00; Stop 05/24/20 at 20:54; Status DC Levetiracetam 1000 mg/Dextrose 110 ml @ 440 mls/hr 1X STAT IV Last administered on 05/24/20at 12:01; Start 05/24/20 at 11:21; Stop 05/24/20 at 11:35; Status DC Gadoterate Meglumine (Dotarem) 15.2 ml 1X ONCE IVP Last administered on 05/24/20 14:15; Start 05/24/20 at 14:15; Stop 05/24/20 at 14:16; Status DC Sodium Chloride 1,000 ml @ 100 mls/hr Q10H IV Last administered on 05/27/20 10:21; Start 05/24/20 at 15:45 Lorazepam (Ativan) 1 mg Q6HRS PO Last administered on 05/27/20 10:22; Start 05/24/20 at 18:00 Levetiracetam 750 mg/Dextrose 107.5 ml @ 420 mls/hr Q12H IV Last administered on 05/25/20 22:24; Start 05/24/20 at 21:00; Stop 05/26/20 at 08:38; Status DC Valproic Acid 500 mg/Dextrose 55 ml @ 55 mls/hr Q12HR IV Last administered on 05/25/20at 20:26; Start 05/25/20 at 01:45; Stop 05/26/20 at 08:38; Status DC Levetiracetam (Keppra) 500 mg BID PO Last administered on 05/26/20 21:02; Start 05/26/20 at 09:00; Stop 05/27/20 at 08:31; Status DC Divalproex Sodium (Depakote Er) 500 mg BID PO Last administered on 05/26/20 21:02; Start 05/26/20 at 09:00; Stop 05/27/20 at 08:31; Status DC Lorazepam (Ativan Inj) 1 mg PRN Q4HRS PRN IVP ANXIETY / AGITATION Last administered on 05/26/20at 21:02; Start 05/26/20 at 21:00 Divalproex Sodium (Depakote Er) 1,000 mg BID PO Last administered on 05/27/20 10:23; Start 05/27/20 at 09:00 Levetiracetam (Keppra) 750 mg BID PO Last administered on 05/27/20 10:21; Start 05/27/20 at 09:00 Risperidone (RisperDAL) 1 mg HS PO ; Start 05/27/20 at 21:00 Active Scripts Active Keflex (Cephalexin) 500 Mg Capsule 1 Cap PO TID Keflex (Cephalexin) 500 Mg Capsule 500 Mg PO QID 10 Days Reported Metformin Hcl 500 Mg Tablet 500 Mg PO BIDWMEALS [place] Thyroid (Thyroid,Pork) 120 Mg Tablet 120 Mg PO DAILY Alprazolam 1 Mg Tablet 1 Mg PO TID PRN Vitals/I & O Vital Sign - Last 24 Hours 05/26/20 05/26/20 05/26/20 05/27/20 19:20 20:00 22:40 02:11 Temp 98.3 98.2 98.2 98.3 98.2 98.2 Pulse 119 103 95 Resp 18 18 18 B/P (MAP) 159/88 (111) 143/74 (97) 146/59 (88) Pulse Ox 97 96 95 O2 Delivery Room Air Room Air Room Air Room Air 05/27/20 05/27/20 05/27/20 05/27/20 07:00 08:00 11:00 15:00 Temp 98.0 98.1 98.0 98.0 98.1 98.0 Pulse 79 103 104 Resp 20 20 18 B/P (MAP) 144/52 (82) 110/71 (84) 140/84 (102) Pulse Ox 97 95 95 O2 Delivery Room Air Room Air Room Air Room Air Intake and Output 05/26/20 05/26/20 05/27/20 15:00 23:00 07:00 Intake Total 200 ml 720 ml 240 ml Output Total 500 ml 1000 ml 1700 ml Balance -300 ml -280 ml -1460 ml Justicifation of Admission Dx: Justifications for Admission: Justification of Admission Dx: Yes LEONEL CRAWFORD MD May 27, 2020 17:15
[2020-05-27] MEDS: ENOXAPARIN 40 MG/0.4 ML SYRINGE. SQ SCH (17:46)
[2020-05-27 19:17] VITALS: BP 155/84
[2020-05-27] MEDS: PSYLLIUM HUSK (SUGAR FREE) 1 PKT PACKET PO SCH (21:01)
[2020-05-27] MEDS: traZODone 100 MG TABLET. PO SCH (21:02)
[2020-05-27] MEDS: risperiDONE 1 MG TABLET. PO SCH (21:03)
[2020-05-27 23:28] VITALS: BP 154/85
[2020-05-28 03:11] VITALS: BP 127/55
[2020-05-28] MEDS: LEVOTHYROXINE 137 MCG TABLET PO SCH (06:00)
--- NOTE | 2020-05-28 06:15 | NUR ---
Pt is somnolent, but responds to painful stimuli, VS stable. Spoke with Dr. Mejia about pt condition, recommended holding 0600 dose of ativan this AM. WIll continue to monitor, call light in reach, bed in low locked position, bed alarm set.
[2020-05-28 07:00] VITALS: BP 120/62
[2020-05-28] MEDS: INSULIN LISPRO 300 UNITS/3 ML VIAL. SQ SCH ×4 (07:30→21:00)
[2020-05-28] MEDS: IV NORMAL SALINE 1000ML BAG 1,000 ML IV SCH ×3 (09:08→18:30)
--- NOTE | 2020-05-28 09:09 | PDOC ---
PROGRESS NOTES Assessment Problems Medical Problems: (1) Seizures Status: Acute New seizures, EEG showed polyspike and wave activity at the rate of 2.5-3 Hz, generalized epilepsy. No seizures since 05/26 Chronic high-dose benzodiazepine use, contribution from benzodiazepine withdrawal Hallucinations, psychiatry started gabapentin and Risperdal, patient is over sedated this morning, defer management to psychiatry. I will hold the gabapentin as she is already on two anticonvulsants. Major depressive disorder, generalized anxiety disorder Encephalopathy, still not totally cleared. Combination of psychiatric and epileptic problems. Thyroid cancer history Plan Levetiracetam and depakote Await levetiracetam level, already upped dose Seizure precautions Observe over weekend does not want her in custodial Discussed with Objective Vital Signs Date Time Temp Pulse Resp B/P (MAP) Pulse Ox O2 Delivery O2 Flow Rate FiO2 05/28/20 03:11 97.9 85 22 127/55 (79) 98 Room Air 97.9 Intake and Output 05/28/20 06:59 Intake Total 2180 ml Output Total 3350 ml Balance -1170 ml Intake Oral 1030 ml IV Total 1150 ml Output Urine Total 3350 ml PHYSICAL EXAM Sleepy, Arouses a little, tells me she's in [facility]. EOMI. CN: no focal findings. Muscle tone: normal. Muscle strength: moves all extremities DTR: 1+ Plantar reflex: flexor Gait: not examined in bed. Sensory exam: no abnormal findings. No cerebellar signs elicited. Review of Relevant I have reviewed the following items buck (where applicable) has been applied. Labs Laboratory Tests Test 05/26/20 10:20 05/26/20 11:45 05/26/20 14:40 05/26/20 16:21 Coronavirus (PCR) Not detected (Not Detected) Glucose (Fingerstick) 182 mg/dL (70-99) 195 mg/dL (70-99) Valproic Acid (Depakene) Level 55 mcg/mL (50-100) Valproic Acid Last Dose Date 05/26/20 Valproic Acid Last Dose Time 0900 Test 05/26/20 21:02 05/27/20 05:15 05/27/20 08:03 05/27/20 11:34 Glucose (Fingerstick) 170 mg/dL (70-99) 143 mg/dL (70-99) 173 mg/dL (70-99) Platelet Count 401 x10^3/uL (140-400) Creatinine 0.5 mg/dL (0.6-1.0) Estimated GFR (Cockcroft-Gault) 120.9 Test 05/27/20 17:05 05/27/20 21:02 05/28/20 07:14 Glucose (Fingerstick) 182 mg/dL (70-99) 179 mg/dL (70-99) 164 mg/dL (70-99) Laboratory Tests Test 05/27/20 11:34 05/27/20 17:05 05/27/20 21:02 05/28/20 07:14 Glucose (Fingerstick) 173 mg/dL (70-99) 182 mg/dL (70-99) 179 mg/dL (70-99) 164 mg/dL (70-99) Microbiology 05/23/20 Urine Culture - Final, Complete 05/23/20 Antimicrobic Susceptibility - Final, Complete 05/23/20 Blood Culture - Final, Complete NO GROWTH AFTER 5 DAYS Medications Current Medications Ondansetron HCl (Zofran) 4 mg 1X ONCE IVP Last administered on 05/22/20at 12:57; Start 05/22/20 at 12:45; Stop 05/22/20 at 12:46; Status DC Lorazepam (Ativan Inj) 1 mg PRN Q4HRS PRN IVP ANXIETY / AGITATION Last administered on 05/22/20at 12:57; Start 05/22/20 at 13:00; Stop 05/22/20 at 13:02; Status DC Ondansetron HCl (Zofran) 4 mg PRN Q8HRS PRN IV NAUSEA/VOMITING; Start 05/22/20 at 13:00; Stop 05/22/20 at 13:00; Status DC Sodium Chloride 1,000 ml @ 100 mls/hr Q10H IV Last administered on 05/23/20at 08:47; Start 05/22/20 at 12:47; Stop 05/23/20 at 12:46; Status DC Ondansetron HCl (Zofran) 4 mg PRN Q4HRS PRN IV NAUSEA/VOMITING; Start 05/22/20 at 13:00 Lorazepam (Ativan Inj) 2 mg 1X ONCE IVP Last administered on 05/22/20at 13:17; Start 05/22/20 at 13:15; Stop 05/22/20 at 13:16; Status DC Metformin HCl (Glucophage) 500 mg BIDWMEALS PO ; Start 05/22/20 at 17:00; Stop 05/22/20 at 16:37; Status DC Alprazolam (Xanax) 2 mg Q6HRS PO ; Start 05/22/20 at 18:00; Stop 05/22/20 at 15:29; Status DC Fluoxetine HCl (PROzac) 40 mg DAILYWBKFT PO Last administered on 05/27/20at 10:22; Start 05/23/20 at 08:00 Thyroid ([place] Thyroid) 180 mg DAILY06 PO ; Start 05/23/20 at 06:00; Stop 05/22/20 at 15:39; Status DC Trazodone HCl (Desyrel) 100 mg HS PO Last administered on 05/27/20at 21:02; Start 05/22/20 at 21:00 Levetiracetam 1000 mg/Dextrose 110 ml @ 750 mls/hr 1X ONCE IV ; Start 05/22/20 at 15:00; Stop 05/22/20 at 15:08; Status Cancel Levetiracetam 500 mg/Dextrose 105 ml @ 420 mls/hr Q12H IV Last administered on 05/24/20at 03:24; Start 05/23/20 at 03:30; Stop 05/24/20 at 11:19; Status DC Alprazolam (Xanax) 1 mg TID PRN PO ANXIETY / AGITATION Last administered on 05/23/20at 15:23; Start 05/22/20 at 15:30; Stop 05/23/20 at 19:18; Status DC Levothyroxine Sodium (Synthroid) 137 mcg DAILY06 PO Last administered on 05/27/20at 05:51; Start 05/23/20 at 06:00 Enoxaparin Sodium (Lovenox 40mg Syringe) 40 mg Q24H SQ Last administered on 05/27/20at 17:46; Start 05/22/20 at 17:00 Levetiracetam 750 mg/Dextrose 107.5 ml @ 440 mls/hr 1X ONCE IV Last administered on 05/22/20at 16:11; Start 05/22/20 at 16:00; Stop 05/22/20 at 16:14; Status DC Insulin Human Lispro (HumaLOG) 0-7 UNITS TIDACHC SQ Last administered on 05/27/20at 17:57; Start 05/22/20 at 16:30 Dextrose (Dextrose 50%-Water Syringe) 12.5 gm PRN Q15MIN PRN IV SEE COMMENTS; Start 05/22/20 at 16:15 Psyllium Hydrophilic Mucilloid (Metamucil Fiber Packet) 1 pkt QHS PO Last administered on 05/27/20at 21:01; Start 05/22/20 at 21:00 Acetaminophen (Tylenol) 650 mg PRN Q6HRS PRN PO MILD PAIN / TEMP > 100.3'F Last administered on 05/23/20at 17:53; Start 05/22/20 at 16:15 Multi-Ingredient Mouthwash/Gargle (Magic Mouthwash) 10 ml PRN QID PRN PO MOUTH PAIN Last administered on 05/23/20at 09:20; Start 05/22/20 at 16:15 Gabapentin (Neurontin) 300 mg TID PO Last administered on 05/27/20at 21:03; Start 05/23/20 at 21:00 Risperidone (RisperDAL) 1 mg QHS PO ; Start 05/23/20 at 21:00; Stop 05/24/20 at 17:42; Status DC Clonazepam (KlonoPIN) 0.5 mg PRN Q6HRS PRN PO ANXIETY / AGITATION Last administered on 05/26/20at 19:50; Start 05/23/20 at 19:30 Levetiracetam 750 mg/Dextrose 107.5 ml @ 420 mls/hr Q12H IV ; Start 05/24/20 at 21:00; Stop 05/24/20 at 20:54; Status DC Levetiracetam 1000 mg/Dextrose 110 ml @ 440 mls/hr 1X STAT IV Last administered on 05/24/20at 12:01; Start 05/24/20 at 11:21; Stop 05/24/20 at 11:35; Status DC Gadoterate Meglumine (Dotarem) 15.2 ml 1X ONCE IVP Last administered on 05/02 01/18at 14:15; Start 05/24/20 at 14:15; Stop 05/24/20 at 14:16; Status DC Sodium Chloride 1,000 ml @ 100 mls/hr Q10H IV Last administered on 05/27/20at 20:56; Start 05/24/20 at 15:45 Lorazepam (Ativan) 1 mg Q6HRS PO Last administered on 05/28/20at 00:26; Start 05/24/20 at 18:00 Levetiracetam 750 mg/Dextrose 107.5 ml @ 420 mls/hr Q12H IV Last administered on 05/25/20at 22:24; Start 05/24/20 at 21:00; Stop 05/26/20 at 08:38; Status DC Valproic Acid 500 mg/Dextrose 55 ml @ 55 mls/hr Q12HR IV Last administered on 05/25/20 20:26; Start 05/25/20 at 01:45; Stop 05/26/20 at 08:38; Status DC Levetiracetam (Keppra) 500 mg BID PO Last administered on 05/26/20 21:02; Start 05/26/20 at 09:00; Stop 05/27/20 at 08:31; Status DC Divalproex Sodium (Depakote Er) 500 mg BID PO Last administered on 05/26/20 21:02; Start 05/26/20 at 09:00; Stop 05/27/20 at 08:31; Status DC Lorazepam (Ativan Inj) 1 mg PRN Q4HRS PRN IVP ANXIETY / AGITATION Last administered on 05/26/20 21:02; Start 05/26/20 at 21:00 Divalproex Sodium (Depakote Er) 1,000 mg BID PO Last administered on 05/27/20 21:02; Start 05/27/20 at 09:00 Levetiracetam (Keppra) 750 mg BID PO Last administered on 05/27/20 21:03; Start 05/27/20 at 09:00 Risperidone (RisperDAL) 1 mg HS PO Last administered on 05/27/20at 21:03; Start 05/27/20 at 21:00 Levofloxacin/ Dextrose 100 ml @ 100 mls/hr Q24H IV Last administered on 8/27/20at 20:58; Start 05/27/20 at 20:00 Active Scripts Active Keflex (Cephalexin) 500 Mg Capsule 1 Cap PO TID Keflex (Cephalexin) 500 Mg Capsule 500 Mg PO QID 10 Days Reported Metformin Hcl 500 Mg Tablet 500 Mg PO BIDWMEALS [place] Thyroid (Thyroid,Pork) 120 Mg Tablet 120 Mg PO DAILY Alprazolam 1 Mg Tablet 1 Mg PO TID PRN Vitals/I & O Vital Sign - Last 24 Hours 05/27/20 05/27/20 05/27/20 05/27/20 11:00 15:00 19:17 20:00 Temp 98.1 98.0 98.1 98.1 98.0 98.1 Pulse 103 104 113 Resp 20 18 18 B/P (MAP) 110/71 (84) 140/84 (102) 155/84 (107) Pulse Ox 95 95 96 O2 Delivery Room Air Room Air Room Air Room Air 05/27/20 05/28/20 23:28 03:11 Temp 99.3 97.9 99.3 97.9 Pulse 115 85 Resp 20 22 B/P (MAP) 154/85 (108) 127/55 (79) Pulse Ox 98 98 O2 Delivery Room Air Room Air Intake and Output 05/27/20 05/27/20 05/28/20 14:59 22:59 06:59 Intake Total 550 ml 1630 ml 0 ml Output Total 2200 ml 1150 ml Balance 550 ml -570 ml -1150 ml Justicifation of Admission Dx: Justifications for Admission: Justification of Admission Dx: Yes LILO MCDANIEL MD May 28, 2020 09:09
[2020-05-28] MEDS: FLUoxetine HCL 20 MG CAPSULE PO SCH (09:36)
[2020-05-28] MEDS: DIVALPROEX EXTENDED RELEASE 500 MG TAB.ER.24H. PO SCH ×2 (09:37→22:38)
[2020-05-28] MEDS: levETIRAcetam 500 MG TABLET PO SCH ×2 (09:37→22:39)
[2020-05-28 11:00] VITALS: BP 117/53
[2020-05-28 15:00] VITALS: BP 130/52
--- NOTE | 2020-05-28 17:09 | PDOC ---
F/U PHYSCH PROG NOTE Subjective: female seen for routine follow-up. Progress is reviewed with nursing staff. Reportedly she slept all night. No major emotional or behavioral breakdown reported. No seizure activity reported. She appears relatively more interactive and alert. Her orientation is better than previous days. States she is improving. Responding to treatment. Denies suicidal or homicidal thoughts. Denies auditory or visual hallucinations. No evidence of laila or hypomania. Tolerating medications denies adverse drug reaction. Objective: 14 point review of system is otherwise negative except for stated above Vital Signs: Vital Signs Date Time Temp Pulse Resp B/P (MAP) Pulse Ox O2 Delivery O2 Flow Rate FiO2 05/28/20 15:00 99.9 105 20 130/52 (78) 92 Room Air 99.9 Labs: Laboratory Tests Test 05/27/20 21:02 05/28/20 07:14 05/28/20 11:44 05/28/20 16:24 Glucose (Fingerstick) 179 mg/dL (70-99) H 164 mg/dL (70-99) H 129 mg/dL (70-99) H 121 mg/dL (70-99) H Medications: Current Medications Medications (Trade) Dose Ordered Sig/Pacheco Start Time Stop Time Status Last Admin Dose Admin Acetaminophen (Tylenol) 650 mg PRN Q6HRS PRN 05/22/20 16:15 05/23/20 17:53 650 MG Alprazolam (Xanax) 1 mg TID PRN 05/22/20 15:30 05/23/20 19:18 DC 05/23/20 15:23 1 MG Clonazepam (KlonoPIN) 0.5 mg PRN Q6HRS PRN 05/23/20 19:30 05/26/20 19:50 0.5 MG Dextrose (Dextrose 50%-Water Syringe) 12.5 gm PRN Q15MIN PRN 05/22/20 16:15 Divalproex Sodium (Depakote Er) 1,000 mg BID 05/27/20 09:00 05/28/20 09:37 1,000 MG Enoxaparin Sodium (Lovenox 40mg Syringe) 40 mg Q24H 05/22/20 17:00 05/27/20 17:46 40 MG Fluoxetine HCl (PROzac) 40 mg DAILYWBKFT 05/23/20 08:00 05/28/20 09:36 40 MG Gabapentin (Neurontin) 300 mg TID 05/23/20 21:00 05/28/20 09:11 DC 05/27/20 21:03 300 MG Gadoterate Meglumine (Dotarem) 15.2 ml 1X ONCE 05/24/20 14:15 05/24/20 14:16 DC 05/24/20 14:15 15.2 ML Insulin Human Lispro (HumaLOG) 0-7 UNITS TIDACHC 05/22/20 16:30 05/27/20 17:57 3 UNITS Levetiracetam (Keppra) 750 mg BID 05/27/20 09:00 05/28/20 09:37 750 MG Levetiracetam 1000 mg/Dextrose 110 ml @ 440 mls/hr 1X STAT 05/24/20 11:21 05/24/20 11:35 DC 05/24/20 12:01 440 MLS/HR Levetiracetam 500 mg/Dextrose 105 ml @ 420 mls/hr Q12H 05/23/20 03:30 05/24/20 11:19 DC 05/24/20 03:24 420 MLS/HR Levetiracetam 750 mg/Dextrose 107.5 ml @ 420 mls/hr Q12H 05/24/20 21:00 05/26/20 08:38 DC 05/25/20 22:24 420 MLS/HR Levofloxacin/ Dextrose 100 ml @ 100 mls/hr Q24H 05/27/20 20:00 05/27/20 20:58 100 MLS/HR Levothyroxine Sodium (Synthroid) 137 mcg DAILY06 05/23/20 06:00 05/27/20 05:51 137 MCG Lorazepam (Ativan Inj) 1 mg PRN Q4HRS PRN 05/26/20 21:00 05/26/20 21:02 1 MG Lorazepam (Ativan) 1 mg Q6HRS 05/24/20 18:00 05/28/20 00:26 1 MG Metformin HCl (Glucophage) 500 mg BIDWMEALS 05/22/20 17:00 05/22/20 16:37 DC Multi-Ingredient Mouthwash/Gargle (Magic Mouthwash) 10 ml PRN QID PRN 05/22/20 16:15 05/23/20 09:20 10 ML Ondansetron HCl (Zofran) 4 mg PRN Q4HRS PRN 05/22/20 13:00 Psyllium Hydrophilic Mucilloid (Metamucil Fiber Packet) 1 pkt QHS 05/22/20 21:00 05/27/20 21:01 1 PKT Risperidone (RisperDAL) 1 mg HS 05/27/20 21:00 05/27/20 21:03 1 MG Sodium Chloride 1,000 ml @ 100 mls/hr Q10H 05/24/20 15:45 05/28/20 09:08 100 MLS/HR Thyroid ([place]al Thyroid) 180 mg DAILY06 05/23/20 06:00 05/22/20 15:39 DC Trazodone HCl (Desyrel) 100 mg HS 05/22/20 21:00 05/27/20 21:02 100 MG Valproic Acid 500 mg/Dextrose 55 ml @ 55 mls/hr Q12HR 05/25/20 01:45 05/26/20 08:38 DC 05/25/20 20:26 55 MLS/HR Physical Exam: Mental Status Exam: female appears her stated age Uncooperative due to delirium She is disoriented Thought processes disorganized Denies suicidal or homicidal thoughts. She has auditory hallucinations denies visual hallucinations She is delusional Mood is dysphoric Affect is dysthymic Insight, judgment, impulse control are poor Attention span and concentration impaired Recent and remote memory impaired Physical Exam: Refer to Physician's note. 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 Additionally she is depressed and anxious. Appears that, Xanax has affected her mental status and cognition as well. She needs to be tapered off Xanax to DC. Initially replaced with Klonopin to prevent withdrawals and then taper Klonopin. Also recommending low-dose risperidone for delirium resolution. Additionally gabapentin to prevent seizures, benzodiazepine withdrawal 05/25/2020 patient is not having seizures episodes since morning. However, she continues to be confused and delirious. 05/27/2020. She appears more confused and delirious. Reportedly having auditory hallucinations and delusional. We will add antipsychotic. 05/28/2020. Today, she appears more alert and oriented. She is oriented to year, month, time and place. Plan: Continue risperidone 1 mg at bedtime for the resolution of delirium and auditory hallucinations. Gabapentin 300 mg 3 times a day to prevent benzodiazepine withdrawal, manage anxiety, and craving for benzos. Risk, benefits, alternatives of the treatment are discussed. She is in agreement with plan and voiced understanding. Adverse drug reaction of the medications prescribed discussed. Psychoeducation provided. Supportive psychotherapy provided. Monitor for symptomatology, adverse drug reaction, and safety. ARTEMIO LUDWIG MD May 28, 2020 17:09
[2020-05-28] MEDS: ENOXAPARIN 40 MG/0.4 ML SYRINGE. SQ SCH (18:29)
[2020-05-28 19:15] VITALS: BP 140/61
--- NOTE | 2020-05-28 20:55 | PDOC ---
PROGRESS NOTES Date of Service: DATE: 05/28/20 TIME: 20:54 Chief Complaint Chief Complaint Acute encephalopathy - likely post-ictal given her seizures, her TSH is also undetectable, however if she is s/p thyroidectomy she does need suppressive dosing, will change to levothyroxine 1.75mcg/kg and round up to 137mcg, stop armour thyroid. Consult neurology. Seizure precautions New onset seizures - likely 2/2 xanax dosing as she mostly takes doses at night. Has been recently reduced from 12mg total per day to 8mg total per day. Started on keppra IV. Neurology edi consultant recommendations noted and greatly appreciated. Unfortunately, she must continue on xanax and have prolonged taper, consult psych Delusional behavior - psych to evaluate Hypertension - cont meds Palpitations - telemetry Diabetes mellitus - sliding scale. Will hold metformin in the event she may require CT angiogram with contrast Hypothyroidism s/p thyroidectomy - 35 years ago to levothyroxine 137 mcg for her own safety as [place] Thyroid does not have discrete amounts of T3 or T4 and can be variable and is inappropriate therapy for total thyroid function suppression after a thyroidectomy for thyroid cancer. 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 05/25: Patient has not presented seizure activity over night not today. She was seen in consultation by Dr. Mejia and changes to her medications have been noted. at bedside reassurance has been provided, improving. Patient anxious to be discharged I have explained the plan of care in detail and all of their concerns addressed to the best of my abilities 05/26: Patient had a witnessed seizure this afternoon with a postictal state. She is still somewhat confused, however patient admits to a history of longstanding epilepsy, with medication noncompliance. 05/27: Patient admits to some confusion yesterday. She does not remember meeting me yesterday after her witnessed seizure. She still slightly confused, difficulty with word finding. 05/28: State she feels "terrible". Per patient's , new medication has improved her behavior. Discussed need for further inpatient monitoring proir to discharge. Vitals Vitals Vital Signs Date Time Temp Pulse Resp B/P (MAP) Pulse Ox O2 Delivery O2 Flow Rate FiO2 05/28/20 19:15 99.6 107 21 140/61 (87) 97 Room Air 99.6 Physical Exam General: Alert, Cooperative, mild distress Heart: Regular rate, Normal S1, Normal S2 Lungs: Clear Abdomen: Normal bowel sounds, Soft, No tenderness, No hepatosplenomegaly, No masses Extremities: No clubbing, No cyanosis, No edema, Normal pulses, No tenderness/swelling Skin: No rashes, No breakdown, No significant lesion Labs LABS Laboratory Tests Test 05/27/20 21:02 05/28/20 07:14 05/28/20 11:44 05/28/20 16:24 Glucose (Fingerstick) 179 mg/dL (70-99) 164 mg/dL (70-99) 129 mg/dL (70-99) 121 mg/dL (70-99) Review of Systems Review of Systems Denies fever, denies headache, denies shortness of breath Assessment and Plan Assessmemt and Plan Problems Medical Problems: (1) Seizures Status: Acute Comment Review of Relevant I have reviewed the following items buck (where applicable) has been applied. Labs Laboratory Tests Test 05/26/20 21:02 05/27/20 05:15 05/27/20 08:03 05/27/20 11:34 Glucose (Fingerstick) 170 mg/dL (70-99) 143 mg/dL (70-99) 173 mg/dL (70-99) Platelet Count 401 x10^3/uL (140-400) Creatinine 0.5 mg/dL (0.6-1.0) Estimated GFR (Cockcroft-Gault) 120.9 Test 05/27/20 17:05 05/27/20 21:02 05/28/20 07:14 05/28/20 11:44 Glucose (Fingerstick) 182 mg/dL (70-99) 179 mg/dL (70-99) 164 mg/dL (70-99) 129 mg/dL (70-99) Test 05/28/20 16:24 Glucose (Fingerstick) 121 mg/dL (70-99) Laboratory Tests Test 05/27/20 21:02 05/28/20 07:14 05/28/20 11:44 05/28/20 16:24 Glucose (Fingerstick) 179 mg/dL (70-99) 164 mg/dL (70-99) 129 mg/dL (70-99) 121 mg/dL (70-99) Microbiology 05/23/20 Urine Culture - Final, Complete 05/23/20 Antimicrobic Susceptibility - Final, Complete 05/23/20 Blood Culture - Final, Complete NO GROWTH AFTER 5 DAYS Medications Current Medications Ondansetron HCl (Zofran) 4 mg 1X ONCE IVP Last administered on 05/22/20at 12:57; Start 05/22/20 at 12:45; Stop 05/22/20 at 12:46; Status DC Lorazepam (Ativan Inj) 1 mg PRN Q4HRS PRN IVP ANXIETY / AGITATION Last administered on 05/22/20at 12:57; Start 05/22/20 at 13:00; Stop 05/22/20 at 13:02; Status DC Ondansetron HCl (Zofran) 4 mg PRN Q8HRS PRN IV NAUSEA/VOMITING; Start 05/22/20 at 13:00; Stop 05/22/20 at 13:00; Status DC Sodium Chloride 1,000 ml @ 100 mls/hr Q10H IV Last administered on 05/23/20at 08:47; Start 05/22/20 at 12:47; Stop 05/23/20 at 12:46; Status DC Ondansetron HCl (Zofran) 4 mg PRN Q4HRS PRN IV NAUSEA/VOMITING; Start 05/22/20 at 13:00 Lorazepam (Ativan Inj) 2 mg 1X ONCE IVP Last administered on 05/22/20at 13:17; Start 05/22/20 at 13:15; Stop 05/22/20 at 13:16; Status DC Metformin HCl (Glucophage) 500 mg BIDWMEALS PO ; Start 05/22/20 at 17:00; Stop 05/22/20 at 16:37; Status DC Alprazolam (Xanax) 2 mg Q6HRS PO ; Start 05/22/20 at 18:00; Stop 05/22/20 at 15:29; Status DC Fluoxetine HCl (PROzac) 40 mg DAILYWBKFT PO Last administered on 05/28/20at 09:36; Start 05/23/20 at 08:00 Thyroid ([place] Thyroid) 180 mg DAILY06 PO ; Start 05/23/20 at 06:00; Stop 05/22/20 at 15:39; Status DC Trazodone HCl (Desyrel) 100 mg HS PO Last administered on 05/27/20at 21:02; Start 05/22/20 at 21:00 Levetiracetam 1000 mg/Dextrose 110 ml @ 750 mls/hr 1X ONCE IV ; Start 05/22/20 at 15:00; Stop 05/22/20 at 15:08; Status Cancel Levetiracetam 500 mg/Dextrose 105 ml @ 420 mls/hr Q12H IV Last administered on 05/24/20at 03:24; Start 05/23/20 at 03:30; Stop 05/24/20 at 11:19; Status DC Alprazolam (Xanax) 1 mg TID PRN PO ANXIETY / AGITATION Last administered on 05/23/20at 15:23; Start 05/22/20 at 15:30; Stop 05/23/20 at 19:18; Status DC Levothyroxine Sodium (Synthroid) 137 mcg DAILY06 PO Last administered on 05/27/20at 05:51; Start 05/23/20 at 06:00 Enoxaparin Sodium (Lovenox 40mg Syringe) 40 mg Q24H SQ Last administered on 05/28/20at 18:29; Start 05/22/20 at 17:00 Levetiracetam 750 mg/Dextrose 107.5 ml @ 440 mls/hr 1X ONCE IV Last administered on 05/22/20at 16:11; Start 05/22/20 at 16:00; Stop 05/22/20 at 16:14; Status DC Insulin Human Lispro (HumaLOG) 0-7 UNITS TIDACHC SQ Last administered on 05/27/20at 17:57; Start 05/22/20 at 16:30 Dextrose (Dextrose 50%-Water Syringe) 12.5 gm PRN Q15MIN PRN IV SEE COMMENTS; Start 05/22/20 at 16:15 Psyllium Hydrophilic Mucilloid (Metamucil Fiber Packet) 1 pkt QHS PO Last administered on 05/27/20at 21:01; Start 05/22/20 at 21:00 Acetaminophen (Tylenol) 650 mg PRN Q6HRS PRN PO MILD PAIN / TEMP > 100.3'F Last administered on 05/23/20at 17:53; Start 05/22/20 at 16:15 Multi-Ingredient Mouthwash/Gargle (Magic Mouthwash) 10 ml PRN QID PRN PO MOUTH PAIN Last administered on 05/23/20at 09:20; Start 05/22/20 at 16:15 Gabapentin (Neurontin) 300 mg TID PO Last administered on 05/27/20 21:03; Start 05/23/20 at 21:00; Stop 05/28/20 at 09:11; Status DC Risperidone (RisperDAL) 1 mg QHS PO ; Start 05/23/20 at 21:00; Stop 05/24/20 at 17:42; Status DC Clonazepam (KlonoPIN) 0.5 mg PRN Q6HRS PRN PO ANXIETY / AGITATION Last administered on 05/26/20at 19:50; Start 05/23/20 at 19:30 Levetiracetam 750 mg/Dextrose 107.5 ml @ 420 mls/hr Q12H IV ; Start 05/24/20 at 21:00; Stop 05/24/20 at 20:54; Status DC Levetiracetam 1000 mg/Dextrose 110 ml @ 440 mls/hr 1X STAT IV Last administered on 05/24/20at 12:01; Start 05/24/20 at 11:21; Stop 05/24/20 at 11:35; Status DC Gadoterate Meglumine (Dotarem) 15.2 ml 1X ONCE IVP Last administered on 05/24/20at 14:15; Start 05/24/20 at 14:15; Stop 05/24/20 at 14:16; Status DC Sodium Chloride 1,000 ml @ 100 mls/hr Q10H IV Last administered on 05/28/20at 18:30; Start 05/24/20 at 15:45 Lorazepam (Ativan) 1 mg Q6HRS PO Last administered on 05/28/20at 18:29; Start 05/24/20 at 18:00 Levetiracetam 750 mg/Dextrose 107.5 ml @ 420 mls/hr Q12H IV Last administered on 05/25/20 22:24; Start 05/24/20 at 21:00; Stop 05/26/20 at 08:38; Status DC Valproic Acid 500 mg/Dextrose 55 ml @ 55 mls/hr Q12HR IV Last administered on 05/25/20at 20:26; Start 05/25/20 at 01:45; Stop 05/26/20 at 08:38; Status DC Levetiracetam (Keppra) 500 mg BID PO Last administered on 05/26/20 21:02; Start 05/26/20 at 09:00; Stop 05/27/20 at 08:31; Status DC Divalproex Sodium (Depakote Er) 500 mg BID PO Last administered on 05/26/20at 21:02; Start 05/26/20 at 09:00; Stop 05/27/20 at 08:31; Status DC Lorazepam (Ativan Inj) 1 mg PRN Q4HRS PRN IVP ANXIETY / AGITATION Last administered on 05/26/20at 21:02; Start 05/26/20 at 21:00 Divalproex Sodium (Depakote Er) 1,000 mg BID PO Last administered on 05/28/20at 09:37; Start 05/27/20 at 09:00 Levetiracetam (Keppra) 750 mg BID PO Last administered on 05/28/20at 09:37; Start 05/27/20 at 09:00 Risperidone (RisperDAL) 1 mg HS PO Last administered on 05/27/20at 21:03; Start 05/27/20 at 21:00 Levofloxacin/ Dextrose 100 ml @ 100 mls/hr Q24H IV Last administered on 05/27/20at 20:58; Start 05/27/20 at 20:00 Active Scripts Active Keflex (Cephalexin) 500 Mg Capsule 1 Cap PO TID Keflex (Cephalexin) 500 Mg Capsule 500 Mg PO QID 10 Days Reported Metformin Hcl 500 Mg Tablet 500 Mg PO BIDWMEALS [place] Thyroid (Thyroid,Pork) 120 Mg Tablet 120 Mg PO DAILY Alprazolam 1 Mg Tablet 1 Mg PO TID PRN Vitals/I & O Vital Sign - Last 24 Hours 05/27/20 05/28/20 05/28/20 05/28/20 23:28 03:11 07:00 08:05 Temp 99.3 97.9 99.8 99.3 97.9 99.8 Pulse 115 85 104 Resp 20 B/P (MAP) 154/85 (108) 127/55 (79) 120/62 (81) Pulse Ox 98 98 92 O2 Delivery Room Air Room Air Room Air Room Air 05/28/20 05/28/20 05/28/20 11:00 15:00 19:15 Temp 98.1 99.9 99.6 98.1 99.9 99.6 Pulse 103 105 107 Resp B/P (MAP) 117/53 (74) 130/52 (78) 140/61 (87) Pulse Ox 95 92 97 O2 Delivery Room Air Room Air Room Air Intake and Output 05/27/20 05/27/20 05/28/20 15:00 23:00 07:00 Intake Total 550 ml 1630 ml 0 ml Output Total 2200 ml 1150 ml Balance 550 ml -570 ml -1150 ml Justicifation of Admission Dx: Justifications for Admission: Justification of Admission Dx: Yes LEONEL CRAWFORD MD May 28, 2020 20:54
[2020-05-28] MEDS: risperiDONE 1 MG TABLET. PO SCH (22:38)
[2020-05-28] MEDS: traZODone 100 MG TABLET. PO SCH (22:39)
[2020-05-28] MEDS: PSYLLIUM HUSK (SUGAR FREE) 1 PKT PACKET PO SCH (22:39)
[2020-05-28 23:10] VITALS: BP 157/73
[2020-05-29 03:33] VITALS: BP 155/69
[2020-05-29] MEDS: IV NORMAL SALINE 1000ML BAG 1,000 ML IV SCH ×2 (05:28→15:50)
[2020-05-29] MEDS: LEVOTHYROXINE 137 MCG TABLET PO SCH (05:28)
[2020-05-29 07:00] VITALS: BP 120/52
[2020-05-29] MEDS: INSULIN LISPRO 300 UNITS/3 ML VIAL. SQ SCH ×4 (07:30→20:40)
[2020-05-29] MEDS: DIVALPROEX EXTENDED RELEASE 500 MG TAB.ER.24H. PO SCH ×2 (09:15→20:38)
[2020-05-29] MEDS: FLUoxetine HCL 20 MG CAPSULE PO SCH (09:15)
[2020-05-29] MEDS: levETIRAcetam 500 MG TABLET PO SCH ×2 (09:15→20:39)
--- NOTE | 2020-05-29 09:30 | PDOC ---
PROGRESS NOTES Date of Service: DATE: 05/29/20 TIME: 09:30 Chief Complaint Chief Complaint IMPRESSION Acute encephalopathy - likely post-ictal given her seizures, her TSH is also undetectable, however if she is s/p thyroidectomy she does need suppressive dosing, will change to levothyroxine 1.75mcg/kg and round up to 137mcg, stop armour thyroid. Consult neurology. Seizure precautions New onset seizures - likely 2/2 xanax dosing as she mostly takes doses at night. Has been recently reduced from 12mg total per day to 8mg total per day. on keppra IV. Neurology production support consultant recommendations noted and greatly appreciated. Unfortunately, she must continue on xanax and have prolonged taper, consult psych Delusional behavior - psych to evaluate Hypertension - cont meds Palpitations - telemetry Diabetes mellitus - sliding scale. Will hold metformin in the event she may require CT angiogram with contrast Hypothyroidism s/p thyroidectomy - 35 years ago to levothyroxine 137 mcg for her own safety as [place] Thyroid does not have discrete amounts of T3 or T4 and can be variable and is inappropriate therapy for total thyroid function suppression after a thyroidectomy for thyroid cancer. 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 05/25: Patient has not presented seizure activity over night not today. She was seen in consultation by Dr. Mejia and changes to her medications have been noted. at bedside reassurance has been provided, improving. Patient anxious to be discharged I have explained the plan of care in detail and all of their concerns addressed to the best of my abilities 05/26: Patient had a witnessed seizure this afternoon with a postictal state. She is still somewhat confused, however patient admits to a history of longsta nding epilepsy, with medication noncompliance. 05/27: Patient admits to some confusion yesterday. She does not remember meeting me yesterday after her witnessed seizure. She still slightly confused, difficulty with word finding. 05/29: EATING LUNCH Per patient's , new medication has improved her behavior. Discussed need for further inpatient monitoring proir to discharge. , pt/ot Vitals Vitals Vital Signs Date Time Temp Pulse Resp B/P (MAP) Pulse Ox O2 Delivery O2 Flow Rate FiO2 05/29/20 07:00 99.9 93 18 120/52 (74) 94 Room Air 99.9 Physical Exam General: Alert, Cooperative, No acute distress Heart: Regular rate, Normal S1, Normal S2 Lungs: Clear Abdomen: Normal bowel sounds, Soft, No tenderness, No hepatosplenomegaly, No masses Extremities: No clubbing, No cyanosis, No edema, Normal pulses, No tenderness/s welling Skin: No rashes, No breakdown, No significant lesion Labs LABS Laboratory Tests Test 05/28/20 11:44 05/28/20 16:24 05/28/20 21:12 05/29/20 07:35 Glucose (Fingerstick) 129 mg/dL (70-99) 121 mg/dL (70-99) 173 mg/dL (70-99) 135 mg/dL (70-99) Assessment and Plan Assessmemt and Plan Problems Medical Problems: (1) Seizures Status: Acute Comment Review of Relevant I have reviewed the following items buck (where applicable) has been applied. Labs Laboratory Tests Test 05/27/20 11:34 05/27/20 17:05 05/27/20 21:02 05/28/20 07:14 Glucose (Fingerstick) 173 mg/dL (70-99) 182 mg/dL (70-99) 179 mg/dL (70-99) 164 mg/dL (70-99) Test 05/28/20 11:44 05/28/20 16:24 05/28/20 21:12 05/29/20 07:35 Glucose (Fingerstick) 129 mg/dL (70-99) 121 mg/dL (70-99) 173 mg/dL (70-99) 135 mg/dL (70-99) Laboratory Tests Test 05/28/20 11:44 05/28/20 16:24 05/28/20 21:12 05/29/20 07:35 Glucose (Fingerstick) 129 mg/dL (70-99) 121 mg/dL (70-99) 173 mg/dL (70-99) 135 mg/dL (70-99) Microbiology 05/23/20 Urine Culture - Final, Complete 05/23/20 Antimicrobic Susceptibility - Final, Complete 05/23/20 Blood Culture - Final, Complete NO GROWTH AFTER 5 DAYS Medications Current Medications Ondansetron HCl (Zofran) 4 mg 1X ONCE IVP Last administered on 05/22/20at 12:57; Start 05/22/20 at 12:45; Stop 05/22/20 at 12:46; Status DC Lorazepam (Ativan Inj) 1 mg PRN Q4HRS PRN IVP ANXIETY / AGITATION Last administered on 05/22/20at 12:57; Start 05/22/20 at 13:00; Stop 05/22/20 at 13:02; Status DC Ondansetron HCl (Zofran) 4 mg PRN Q8HRS PRN IV NAUSEA/VOMITING; Start 05/22/20 at 13:00; Stop 05/22/20 at 13:00; Status DC Sodium Chloride 1,000 ml @ 100 mls/hr Q10H IV Last administered on 05/23/20at 08:47; Start 05/22/20 at 12:47; Stop 05/23/20 at 12:46; Status DC Ondansetron HCl (Zofran) 4 mg PRN Q4HRS PRN IV NAUSEA/VOMITING; Start 05/22/20 at 13:00 Lorazepam (Ativan Inj) 2 mg 1X ONCE IVP Last administered on 05/22/20at 13:17; Start 05/22/20 at 13:15; Stop 05/22/20 at 13:16; Status DC Metformin HCl (Glucophage) 500 mg BIDWMEALS PO ; Start 05/22/20 at 17:00; Stop 05/22/20 at 16:37; Status DC Alprazolam (Xanax) 2 mg Q6HRS PO ; Start 05/22/20 at 18:00; Stop 05/22/20 at 15:29; Status DC Fluoxetine HCl (PROzac) 40 mg DAILYWBKFT PO Last administered on 05/29/20at 09:15; Start 05/23/20 at 08:00 Thyroid ([place] Thyroid) 180 mg DAILY06 PO ; Start 05/23/20 at 06:00; Stop 05/22/20 at 15:39; Status DC Trazodone HCl (Desyrel) 100 mg HS PO Last administered on 05/28/20at 22:39; Start 05/22/20 at 21:00 Levetiracetam 1000 mg/Dextrose 110 ml @ 750 mls/hr 1X ONCE IV ; Start 05/22/20 at 15:00; Stop 05/22/20 at 15:08; Status Cancel Levetiracetam 500 mg/Dextrose 105 ml @ 420 mls/hr Q12H IV Last administered on 05/24/20at 03:24; Start 05/23/20 at 03:30; Stop 05/24/20 at 11:19; Status DC Alprazolam (Xanax) 1 mg TID PRN PO ANXIETY / AGITATION Last administered on 05/23/20at 15:23; Start 05/22/20 at 15:30; Stop 05/23/20 at 19:18; Status DC Levothyroxine Sodium (Synthroid) 137 mcg DAILY06 PO Last administered on 05/29/20at 05:28; Start 05/23/20 at 06:00 Enoxaparin Sodium (Lovenox 40mg Syringe) 40 mg Q24H SQ Last administered on 05/28/20at 18:29; Start 05/22/20 at 17:00 Levetiracetam 750 mg/Dextrose 107.5 ml @ 440 mls/hr 1X ONCE IV Last administered on 05/22/20at 16:11; Start 05/22/20 at 16:00; Stop 05/22/20 at 16:14; Status DC Insulin Human Lispro (HumaLOG) 0-7 UNITS TIDACHC SQ Last administered on 05/27/20at 17:57; Start 05/22/20 at 16:30 Dextrose (Dextrose 50%-Water Syringe) 12.5 gm PRN Q15MIN PRN IV SEE COMMENTS; Start 05/22/20 at 16:15 Psyllium Hydrophilic Mucilloid (Metamucil Fiber Packet) 1 pkt QHS PO Last administered on 05/28/20at 22:39; Start 05/22/20 at 21:00 Acetaminophen (Tylenol) 650 mg PRN Q6HRS PRN PO MILD PAIN / TEMP > 100.3'F Last administered on 05/23/20at 17:53; Start 05/22/20 at 16:15 Multi-Ingredient Mouthwash/Gargle (Magic Mouthwash) 10 ml PRN QID PRN PO MOUTH PAIN Last administered on 05/23/20at 09:20; Start 05/22/20 at 16:15 Gabapentin (Neurontin) 300 mg TID PO Last administered on 05/27/20at 21:03; Start 05/23/20 at 21:00; Stop 05/28/20 at 09:11; Status DC Risperidone (RisperDAL) 1 mg QHS PO ; Start 05/23/20 at 21:00; Stop 05/24/20 at 17:42; Status DC Clonazepam (KlonoPIN) 0.5 mg PRN Q6HRS PRN PO ANXIETY / AGITATION Last administered on 05/26/20at 19:50; Start 05/23/20 at 19:30 Levetiracetam 750 mg/Dextrose 107.5 ml @ 420 mls/hr Q12H IV ; Start 05/24/20 at 21:00; Stop 05/24/20 at 20:54; Status DC Levetiracetam 1000 mg/Dextrose 110 ml @ 440 mls/hr 1X STAT IV Last administered on 05/24/20at 12:01; Start 05/24/20 at 11:21; Stop 05/24/20 at 11:35; Status DC Gadoterate Meglumine (Dotarem) 15.2 ml 1X ONCE IVP Last administered on 0at 14:15; Start 05/24/20 at 14:15; Stop 05/24/20 at 14:16; Status DC Sodium Chloride 1,000 ml @ 100 mls/hr Q10H IV Last administered on 05/29/20at 05:28; Start 05/24/20 at 15:45 Lorazepam (Ativan) 1 mg Q6HRS PO Last administered on 05/29/20at 05:28; Start 05/24/20 at 18:00 Levetiracetam 750 mg/Dextrose 107.5 ml @ 420 mls/hr Q12H IV Last administered on 05/25/20at 22:24; Start 05/24/20 at 21:00; Stop 05/26/20 at 08:38; Status DC Valproic Acid 500 mg/Dextrose 55 ml @ 55 mls/hr Q12HR IV Last administered on 05/25/20 20:26; Start 05/25/20 at 01:45; Stop 05/26/20 at 08:38; Status DC Levetiracetam (Keppra) 500 mg BID PO Last administered on 05/26/20 21:02; Start 05/26/20 at 09:00; Stop 05/27/20 at 08:31; Status DC Divalproex Sodium (Depakote Er) 500 mg BID PO Last administered on 05/26/20 21:02; Start 05/26/20 at 09:00; Stop 05/27/20 at 08:31; Status DC Lorazepam (Ativan Inj) 1 mg PRN Q4HRS PRN IVP ANXIETY / AGITATION Last administered on 05/26/20 21:02; Start 05/26/20 at 21:00 Divalproex Sodium (Depakote Er) 1,000 mg BID PO Last administered on 05/29/20at 09:15; Start 05/27/20 at 09:00 Levetiracetam (Keppra) 750 mg BID PO Last administered on 05/29/20 09:15; Start 05/27/20 at 09:00 Risperidone (RisperDAL) 1 mg HS PO Last administered on 05/28/20at 22:38; Start 05/27/20 at 21:00 Levofloxacin/ Dextrose 100 ml @ 100 mls/hr Q24H IV Last administered on 05/28/20at 23:02; Start 05/27/20 at 20:00 Active Scripts Active Keflex (Cephalexin) 500 Mg Capsule 1 Cap PO TID Keflex (Cephalexin) 500 Mg Capsule 500 Mg PO QID 10 Days Reported Metformin Hcl 500 Mg Tablet 500 Mg PO BIDWMEALS [place] Thyroid (Thyroid,Pork) 120 Mg Tablet 120 Mg PO DAILY Alprazolam 1 Mg Tablet 1 Mg PO TID PRN Vitals/I & O Vital Sign - Last 24 Hours 05/28/20 05/28/20 05/28/20 05/28/20 11:00 15:00 19:15 20:00 Temp 98.1 99.9 99.6 98.1 99.9 99.6 Pulse 103 105 107 Resp 20 20 21 B/P (MAP) 117/53 (74) 130/52 (78) 140/61 (87) Pulse Ox 95 92 97 O2 Delivery Room Air Room Air Room Air Room Air 05/28/20 05/29/20 05/29/20 23:10 03:33 07:00 Temp 99.1 99.0 99.9 99.1 99.0 99.9 Pulse 111 103 93 Resp 20 18 18 B/P (MAP) 157/73 (101) 155/69 (97) 120/52 (74) Pulse Ox 94 95 94 O2 Delivery Room Air Room Air Room Air Intake and Output 05/28/20 05/28/20 05/29/20 15:00 23:00 07:00 Intake Total 0 ml 500 ml 1580 ml Output Total 300 ml 2500 ml Balance 0 ml 200 ml -920 ml Justicifation of Admission Dx: Justifications for Admission: Justification of Admission Dx: Yes CONRADO ASTUDILLO MD May 29, 2020 09:30
[2020-05-29 11:00] VITALS: BP 112/52
[2020-05-29 15:00] VITALS: BP 141/46
[2020-05-29] MEDS: ENOXAPARIN 40 MG/0.4 ML SYRINGE. SQ SCH (17:34)
[2020-05-29 19:20] VITALS: BP 140/52
[2020-05-29] MEDS: PSYLLIUM HUSK (SUGAR FREE) 1 PKT PACKET PO SCH (20:38)
[2020-05-29] MEDS: LACTOBACILLUS RHAMNOSUS GG 1 CAPSULE. PO SCH (20:39)
[2020-05-29] MEDS: traZODone 100 MG TABLET. PO SCH (20:40)
[2020-05-29] MEDS: risperiDONE 1 MG TABLET. PO SCH (20:40)
[2020-05-29 23:24] VITALS: BP 125/45
[2020-05-30] VITALS (7 sets, daily range): BP systolic 112–154; BP diastolic 45–88
--- NOTE | 2020-05-30 00:23 | NUR ---
PT NOT GIVEN SCHEDULED ATIVAN DUE TO DECREASED LOC. VITALS: BP 136/52, RESP 16, HEART RATE 84, TEMP @ 100.4. PT RESPONDS TO PAINFUL STIMULI. PUPILS EQUAL AND REACTIVE TO LIGHT. EKG HISTORY SHOWS NO APPARENT SEIZURE ACTIVITY THIS EVENING. Addendum: 05/30/20 at 0102 by YA KYLE RN Blood sugar at 92 @ 0100
[2020-05-30] MEDS ORDERED: ACETAMINOPHEN 650 MG SUPP.RECT. PR ONE (01:00)
[2020-05-30] MEDS: LEVOTHYROXINE 137 MCG TABLET PO SCH ×2 (05:49→05:53)
--- NOTE | 2020-05-30 05:54 | NUR ---
"6 AM MEDS NOT GIVEN (SYNTHROID/ATIVAN). PT WITH DIMINISHED LOC. Addendum: 05/30/20 at 0611 by YA KYLE RN |Vitals: 99.5 temp, 76 pulse, 22 resp, 112/45 @ 0330. Blood sugar @ 95 @ 0600. Pupils equal and reactive. Responsive to painful stimuli."
[2020-05-30] MEDS: IV NORMAL SALINE 1000ML BAG 1,000 ML IV SCH ×2 (06:15→21:03)
[2020-05-30] MEDS: INSULIN LISPRO 300 UNITS/3 ML VIAL. SQ SCH ×4 (07:30→21:04)
[2020-05-30] MEDS: LACTOBACILLUS RHAMNOSUS GG 1 CAPSULE. PO SCH ×2 (08:51→21:05)
[2020-05-30] MEDS: FLUoxetine HCL 20 MG CAPSULE PO SCH (08:51)
[2020-05-30] MEDS: DIVALPROEX EXTENDED RELEASE 500 MG TAB.ER.24H. PO SCH ×2 (08:51→21:05)
[2020-05-30] MEDS: levETIRAcetam 500 MG TABLET PO SCH ×2 (08:51→21:04)
[2020-05-30 10:28] LABS: BASO % 0 % (0-3); EOS # 0.1 x10^3/uL (0.0-0.7); EOS % 2 % (0-3); HEMATOCRIT 32.2 % (36.0-47.0); HEMOGLOBIN 11.1 g/dL (12.0-15.5); LYMPH # 0.9 x10^3/uL (1.0-4.8); LYMPH % 15 % (24-48); MEAN CORPUSCULAR HEMOGLOBIN 30 pg (25-35); MEAN CORPUSCULAR HGB CONC 35 g/dL (31-37); MEAN CORPUSCULAR VOLUME 86 fL (79-100); MONO # 0.5 x10^3/uL (0.0-1.1); MONO % 9 % (0-9); NEUT # 4.3 x10^3/uL (1.8-7.7); NEUT % 74 % (31-73); PLATELET COUNT 292 x10^3/uL (140-400); RED BLOOD COUNT 3.75 x10^6/uL (3.50-5.40); RED CELL DISTRIBUTION WIDTH 12.9 % (11.5-14.5); WHITE BLOOD COUNT 5.8 x10^3/uL (4.0-11.0)
[2020-05-30 10:41] LABS: ALBUMIN 2.1 g/dL (3.4-5.0); ALBUMIN/GLOBULIN RATIO 0.7 (1.0-1.7); CALCIUM 6.9 mg/dL (8.5-10.1); CREATININE 0.4 mg/dL (0.6-1.0); GFR 156.5; TOTAL BILIRUBIN 0.3 mg/dL (0.2-1.0); TOTAL PROTEIN 5.2 g/dL (6.4-8.2)
[2020-05-30 10:44] LABS: POTASSIUM 2.5 mmol/L (3.5-5.1)
[2020-05-30] MEDS ORDERED: POTASSIUM CHLORIDE 20 MEQ TABLET.ER. PO ONE (11:00)
--- NOTE | 2020-05-30 11:06 | PDOC ---
PROGRESS NOTES Date of Service: DATE: 05/30/20 TIME: 11:06 Chief Complaint Chief Complaint IMPRESSION Acute encephalopathy - likely post-ictal given her seizures, her TSH is also undetectable, however if she is s/p thyroidectomy she does need suppressive dosing, will change to levothyroxine 1.75mcg/kg and round up to 137mcg, stop armour thyroid. Consult neurology. Seizure precautions New onset seizures - likely 2/2 xanax dosing as she mostly takes doses at night. Has been recently reduced from 12mg total per day to 8mg total per day. on keppra IV. Neurology curriculum consultant recommendations noted and greatly appreciated. Unfortunately, she must continue on xanax and have prolonged taper, consult psych Delusional behavior - psych to evaluate Hypertension - cont meds Palpitations - telemetry Diabetes mellitus - sliding scale. Will hold metformin in the event she may require CT angiogram with contrast Hypothyroidism s/p thyroidectomy - 35 years ago to levothyroxine 137 mcg for her own safety as Lena Thyroid does not have discrete amounts of T3 or T4 and can be variable and is inappropriate therapy for total thyroid function suppression after a thyroidectomy for thyroid cancer. 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 05/25: Patient has not presented seizure activity over night not today. She was seen in consultation by Dr. Mejia and changes to her medications have been noted. at bedside reassurance has been provided, improving. Patient anxious to be discharged I have explained the plan of care in detail and all of their concerns addressed to the best of my abilities 05/26: Patient had a witnessed seizure this afternoon with a postictal state. She is still somewhat confused, however patient admits to a history of longstanding epilepsy, with medication noncompliance. 05/27: Patient admits to some confusion yesterday. She does not remember meeting me yesterday after her witnessed seizure. She still slightly confused, difficulty with word finding. 05/30: EATING LUNCH Per patient's , new medication has improved her behavior. Discussed need for further inpatient monitoring proir to discharge. , pt/ot INTAKE ONLY FAIR D/W RN Vitals Vitals Vital Signs Date Time Temp Pulse Resp B/P (MAP) Pulse Ox O2 Delivery O2 Flow Rate FiO2 05/30/20 07:40 99.1 86 18 152/63 (92) 99 Room Air 99.1 Physical Exam General: Alert, Cooperative, No acute distress Heart: Regular rate, Normal S1, Normal S2 Lungs: Clear Abdomen: Normal bowel sounds, Soft, No tenderness, No hepatosplenomegaly, No masses Extremities: No clubbing, No cyanosis, No edema, Normal pulses, No tenderness/swelling Skin: No rashes, No breakdown, No significant lesion Labs LABS Swallow Goal 1 * Puree w/o s/s Aspiration * Goal Met * Discontinue Swallow Goal 2 * Thin w/o s/s Aspiration * Goal Met * Discontinue Swallow Goal 3 * Safe and efficient swallow of solids. Currently, pt w/adequate efficiency of mastication w/soft solid trials. Pt agreeable to con't [facility] soft diet while acutely hospitalized as soft diet in this facility is essentially regular consistency and pt will not be able to masticate regular solids safely and efficiently. Goal 3 Assessment * Goal Met Pt. Agrees with POC * Yes Communicated Pt care with (name, title) * Renetta RN; pt and Rehab Potential - To Achieve Goals * Fair Discharge Recommendations * Long Term Unit Additional Details/Impressions * No change from eval. Pt con't w/functional swallow w/o evidence of oropharyngeal delay or weakness across consistencies. Solids remain less efficient d/t lmtd posterior upper and lower dentition for mastication. Pt remains in agreement for modified/ground meats while hospitalized. IMPRESSIONS: Functional swallow. In absence of seizure activity (as noted at eval attempt 05/24), pt demo'd safe swallow w/overall low risk of aspiration. Would benefit from con't use of modified solids and has a hx of requiring same at baseline d/t lmtd dentition. RECOMMENDATIONS: [facility] soft w/thin liquids. General precautions. Goals met. No additional CUTTING ROOM SUPERVISOR needs at this time. Visit Type * On Hold Attempted Visit Details * Per TANYA Erazo, pt is sounding sleeping at this time. Apparently pt was given Risperdol at some point and has been difficult to arouse. Will check back later today, time permitting, or tomorrow. Relevant History * Acute encephalopathy - likely post-ictal given her seizures Xanax OD PT/[employer] * [place], MPT Laboratory Tests Test 05/29/20 12:20 05/29/20 17:01 05/29/20 20:35 05/30/20 00:59 Glucose (Fingerstick) 113 mg/dL (70-99) 146 mg/dL (70-99) 126 mg/dL (70-99) 92 mg/dL (70-99) Test 05/30/20 06:00 05/30/20 07:40 05/30/20 09:35 Glucose (Fingerstick) 95 mg/dL (70-99) 99 mg/dL (70-99) White Blood Count 5.8 x10^3/uL (4.0-11.0) Red Blood Count 3.75 x10^6/uL (3.50-5.40) Hemoglobin 11.1 g/dL (12.0-15.5) Hematocrit 32.2 % (36.0-47.0) Mean Corpuscular Volume 86 fL (79-100) Mean Corpuscular Hemoglobin 30 pg (25-35) Mean Corpuscular Hemoglobin Concent 35 g/dL (31-37) Red Cell Distribution Width 12.9 % (11.5-14.5) Platelet Count 292 x10^3/uL (140-400) Neutrophils (%) (Auto) 74 % (31-73) Lymphocytes (%) (Auto) 15 % (24-48) Monocytes (%) (Auto) 9 % (0-9) Eosinophils (%) (Auto) 2 % (0-3) Basophils (%) (Auto) 0 % (0-3) Neutrophils # (Auto) 4.3 x10^3/uL (1.8-7.7) Lymphocytes # (Auto) 0.9 x10^3/uL (1.0-4.8) Monocytes # (Auto) 0.5 x10^3/uL (0.0-1.1) Eosinophils # (Auto) 0.1 x10^3/uL (0.0-0.7) Basophils # (Auto) 0.0 x10^3/uL (0.0-0.2) Sodium Level 147 mmol/L (136-145) Potassium Level 2.5 mmol/L (3.5-5.1) Chloride Level 109 mmol/L (98-107) Carbon Dioxide Level 32 mmol/L (21-32) Anion Gap 6 (6-14) Blood Urea Nitrogen 6 mg/dL (7-20) Creatinine 0.4 mg/dL (0.6-1.0) Estimated GFR (Cockcroft-Gault) 156.5 BUN/Creatinine Ratio 15 (6-20) Glucose Level 106 mg/dL (70-99) Calcium Level 6.9 mg/dL (8.5-10.1) Total Bilirubin 0.3 mg/dL (0.2-1.0) Aspartate Amino Transf (AST/SGOT) 17 U/L (15-37) Alanine Aminotransferase (ALT/SGPT) 21 U/L (14-59) Alkaline Phosphatase 42 U/L (46-116) Total Protein 5.2 g/dL (6.4-8.2) Albumin 2.1 g/dL (3.4-5.0) Albumin/Globulin Ratio 0.7 (1.0-1.7) Assessment and Plan Assessmemt and Plan Problems Medical Problems: (1) Seizures Status: Acute Comment Review of Relevant I have reviewed the following items buck (where applicable) has been applied. Labs Laboratory Tests Test 05/28/20 11:44 05/28/20 16:24 05/28/20 21:12 05/29/20 07:35 Glucose (Fingerstick) 129 mg/dL (70-99) 121 mg/dL (70-99) 173 mg/dL (70-99) 135 mg/dL (70-99) Test 05/29/20 12:20 05/29/20 17:01 05/29/20 20:35 05/30/20 00:59 Glucose (Fingerstick) 113 mg/dL (70-99) 146 mg/dL (70-99) 126 mg/dL (70-99) 92 mg/dL (70-99) Test 05/30/20 06:00 05/30/20 07:40 05/30/20 09:35 Glucose (Fingerstick) 95 mg/dL (70-99) 99 mg/dL (70-99) White Blood Count 5.8 x10^3/uL (4.0-11.0) Red Blood Count 3.75 x10^6/uL (3.50-5.40) Hemoglobin 11.1 g/dL (12.0-15.5) Hematocrit 32.2 % (36.0-47.0) Mean Corpuscular Volume 86 fL (79-100) Mean Corpuscular Hemoglobin 30 pg (25-35) Mean Corpuscular Hemoglobin Concent 35 g/dL (31-37) Red Cell Distribution Width 12.9 % (11.5-14.5) Platelet Count 292 x10^3/uL (140-400) Neutrophils (%) (Auto) 74 % (31-73) Lymphocytes (%) (Auto) 15 % (24-48) Monocytes (%) (Auto) 9 % (0-9) Eosinophils (%) (Auto) 2 % (0-3) Basophils (%) (Auto) 0 % (0-3) Neutrophils # (Auto) 4.3 x10^3/uL (1.8-7.7) Lymphocytes # (Auto) 0.9 x10^3/uL (1.0-4.8) Monocytes # (Auto) 0.5 x10^3/uL (0.0-1.1) Eosinophils # (Auto) 0.1 x10^3/uL (0.0-0.7) Basophils # (Auto) 0.0 x10^3/uL (0.0-0.2) Sodium Level 147 mmol/L (136-145) Potassium Level 2.5 mmol/L (3.5-5.1) Chloride Level 109 mmol/L (98-107) Carbon Dioxide Level 32 mmol/L (21-32) Anion Gap 6 (6-14) Blood Urea Nitrogen 6 mg/dL (7-20) Creatinine 0.4 mg/dL (0.6-1.0) Estimated GFR (Cockcroft-Gault) 156.5 BUN/Creatinine Ratio 15 (6-20) Glucose Level 106 mg/dL (70-99) Calcium Level 6.9 mg/dL (8.5-10.1) Total Bilirubin 0.3 mg/dL (0.2-1.0) Aspartate Amino Transf (AST/SGOT) 17 U/L (15-37) Alanine Aminotransferase (ALT/SGPT) 21 U/L (14-59) Alkaline Phosphatase 42 U/L (46-116) Total Protein 5.2 g/dL (6.4-8.2) Albumin 2.1 g/dL (3.4-5.0) Albumin/Globulin Ratio 0.7 (1.0-1.7) Laboratory Tests Test 05/29/20 12:20 05/29/20 17:01 05/29/20 20:35 05/30/20 00:59 Glucose (Fingerstick) 113 mg/dL (70-99) 146 mg/dL (70-99) 126 mg/dL (70-99) 92 mg/dL (70-99) Test 05/30/20 06:00 05/30/20 07:40 05/30/20 09:35 Glucose (Fingerstick) 95 mg/dL (70-99) 99 mg/dL (70-99) White Blood Count 5.8 x10^3/uL (4.0-11.0) Red Blood Count 3.75 x10^6/uL (3.50-5.40) Hemoglobin 11.1 g/dL (12.0-15.5) Hematocrit 32.2 % (36.0-47.0) Mean Corpuscular Volume 86 fL (79-100) Mean Corpuscular Hemoglobin 30 pg (25-35) Mean Corpuscular Hemoglobin Concent 35 g/dL (31-37) Red Cell Distribution Width 12.9 % (11.5-14.5) Platelet Count 292 x10^3/uL (140-400) Neutrophils (%) (Auto) 74 % (31-73) Lymphocytes (%) (Auto) 15 % (24-48) Monocytes (%) (Auto) 9 % (0-9) Eosinophils (%) (Auto) 2 % (0-3) Basophils (%) (Auto) 0 % (0-3) Neutrophils # (Auto) 4.3 x10^3/uL (1.8-7.7) Lymphocytes # (Auto) 0.9 x10^3/uL (1.0-4.8) Monocytes # (Auto) 0.5 x10^3/uL (0.0-1.1) Eosinophils # (Auto) 0.1 x10^3/uL (0.0-0.7) Basophils # (Auto) 0.0 x10^3/uL (0.0-0.2) Sodium Level 147 mmol/L (136-145) Potassium Level 2.5 mmol/L (3.5-5.1) Chloride Level 109 mmol/L (98-107) Carbon Dioxide Level 32 mmol/L (21-32) Anion Gap 6 (6-14) Blood Urea Nitrogen 6 mg/dL (7-20) Creatinine 0.4 mg/dL (0.6-1.0) Estimated GFR (Cockcroft-Gault) 156.5 BUN/Creatinine Ratio 15 (6-20) Glucose Level 106 mg/dL (70-99) Calcium Level 6.9 mg/dL (8.5-10.1) Total Bilirubin 0.3 mg/dL (0.2-1.0) Aspartate Amino Transf (AST/SGOT) 17 U/L (15-37) Alanine Aminotransferase (ALT/SGPT) 21 U/L (14-59) Alkaline Phosphatase 42 U/L (46-116) Total Protein 5.2 g/dL (6.4-8.2) Albumin 2.1 g/dL (3.4-5.0) Albumin/Globulin Ratio 0.7 (1.0-1.7) Microbiology 05/23/20 Urine Culture - Final, Complete 05/23/20 Antimicrobic Susceptibility - Final, Complete 05/23/20 Blood Culture - Final, Complete NO GROWTH AFTER 5 DAYS Medications Current Medications Ondansetron HCl (Zofran) 4 mg 1X ONCE IVP Last administered on 05/22/20at 12:57; Start 05/22/20 at 12:45; Stop 05/22/20 at 12:46; Status DC Lorazepam (Ativan Inj) 1 mg PRN Q4HRS PRN IVP ANXIETY / AGITATION Last administered on 05/22/20at 12:57; Start 05/22/20 at 13:00; Stop 05/22/20 at 13:02; Status DC Ondansetron HCl (Zofran) 4 mg PRN Q8HRS PRN IV NAUSEA/VOMITING; Start 05/22/20 at 13:00; Stop 05/22/20 at 13:00; Status DC Sodium Chloride 1,000 ml @ 100 mls/hr Q10H IV Last administered on 05/23/20at 0 8:47; Start 05/22/20 at 12:47; Stop 05/23/20 at 12:46; Status DC Ondansetron HCl (Zofran) 4 mg PRN Q4HRS PRN IV NAUSEA/VOMITING; Start 05/22/20 at 13:00 Lorazepam (Ativan Inj) 2 mg 1X ONCE IVP Last administered on 05/22/20at 13:17; Start 05/22/20 at 13:15; Stop 05/22/20 at 13:16; Status DC Metformin HCl (Glucophage) 500 mg BIDWMEALS PO ; Start 05/22/20 at 17:00; Stop 05/22/20 at 16:37; Status DC Alprazolam (Xanax) 2 mg Q6HRS PO ; Start 05/22/20 at 18:00; Stop 05/22/20 at 15:29; Status DC Fluoxetine HCl (PROzac) 40 mg DAILYWBKFT PO Last administered on 05/30/20at 08:51; Start 05/23/20 at 08:00 Thyroid (Lena Thyroid) 180 mg DAILY06 PO ; Start 05/23/20 at 06:00; Stop 05/22/20 at 15:39; Status DC Trazodone HCl (Desyrel) 100 mg HS PO Last administered on 05/29/20at 20:40; Start 05/22/20 at 21:00 Levetiracetam 1000 mg/Dextrose 110 ml @ 750 mls/hr 1X ONCE IV ; Start 05/22/20 at 15:00; Stop 05/22/20 at 15:08; Status Cancel Levetiracetam 500 mg/Dextrose 105 ml @ 420 mls/hr Q12H IV Last administered on 05/24/20at 03:24; Start 05/23/20 at 03:30; Stop 05/24/20 at 11:19; Status DC Alprazolam (Xanax) 1 mg TID PRN PO ANXIETY / AGITATION Last administered on 05/23/20at 15:23; Start 05/22/20 at 15:30; Stop 05/23/20 at 19:18; Status DC Levothyroxine Sodium (Synthroid) 137 mcg DAILY06 PO Last administered on 05/29/20at 05:28; Start 05/23/20 at 06:00 Enoxaparin Sodium (Lovenox 40mg Syringe) 40 mg Q24H SQ Last administered on 05/29/20at 17:34; Start 05/22/20 at 17:00 Levetiracetam 750 mg/Dextrose 107.5 ml @ 440 mls/hr 1X ONCE IV Last administered on 05/22/20at 16:11; Start 05/22/20 at 16:00; Stop 05/22/20 at 16:14; Status DC Insulin Human Lispro (HumaLOG) 0-7 UNITS TIDACHC SQ Last administered on 05/27/20at 17:57; Start 05/22/20 at 16:30 Dextrose (Dextrose 50%-Water Syringe) 12.5 gm PRN Q15MIN PRN IV SEE COMMENTS; Start 05/22/20 at 16:15 Psyllium Hydrophilic Mucilloid (Metamucil Fiber Packet) 1 pkt QHS PO Last administered on 05/29/20at 20:38; Start 05/22/20 at 21:00 Acetaminophen (Tylenol) 650 mg PRN Q6HRS PRN PO MILD PAIN / TEMP > 100.3'F Last administered on 05/23/20at 17:53; Start 05/22/20 at 16:15 Multi-Ingredient Mouthwash/Gargle (Magic Mouthwash) 10 ml PRN QID PRN PO MOUTH PAIN Last administered on 05/23/20at 09:20; Start 05/22/20 at 16:15 Gabapentin (Neurontin) 300 mg TID PO Last administered on 05/27/20at 21:03; Start 05/23/20 at 21:00; Stop 05/28/20 at 09:11; Status DC Risperidone (RisperDAL) 1 mg QHS PO ; Start 05/23/20 at 21:00; Stop 05/24/20 at 17:42; Status DC Clonazepam (KlonoPIN) 0.5 mg PRN Q6HRS PRN PO ANXIETY / AGITATION Last administered on 05/26/20at 19:50; Start 05/23/20 at 19:30 Levetiracetam 750 mg/Dextrose 107.5 ml @ 420 mls/hr Q12H IV ; Start 05/24/20 at 21:00; Stop 05/24/20 at 20:54; Status DC Levetiracetam 1000 mg/Dextrose 110 ml @ 440 mls/hr 1X STAT IV Last administered on 05/24/20at 12:01; Start 05/24/20 at 11:21; Stop 05/24/20 at 11:35; Status DC Gadoterate Meglumine (Dotarem) 15.2 ml 1X ONCE IVP Last administered on 05/24/20at 14:15; Start 05/24/20 at 14:15; Stop 05/24/20 at 14:16; Status DC Sodium Chloride 1,000 ml @ 65 mls/hr [id number] IV Last administered on 05/30/20at 06:15; Start 05/24/20 at 15:45 Lorazepam (Ativan) 1 mg Q6HRS PO Last administered on 05/29/20at 17:33; Start 05/24/20 at 18:00 Levetiracetam 750 mg/Dextrose 107.5 ml @ 420 mls/hr Q12H IV Last administered on 05/25/20at 22:24; Start 05/24/20 at 21:00; Stop 05/26/20 at 08:38; Status DC Valproic Acid 500 mg/Dextrose 55 ml @ 55 mls/hr Q12HR IV Last administered on 05/25/20at 20:26; Start 05/25/20 at 01:45; Stop 05/26/20 at 08:38; Status DC Levetiracetam (Keppra) 500 mg BID PO Last administered on 05/26/20at 21:02; Start 05/26/20 at 09:00; Stop 05/27/20 at 08:31; Status DC Divalproex Sodium (Depakote Er) 500 mg BID PO Last administered on 05/26/20at 21:02; Start 05/26/20 at 09:00; Stop 05/27/20 at 08:31; Status DC Lorazepam (Ativan Inj) 1 mg PRN Q4HRS PRN IVP ANXIETY / AGITATION Last admini stered on 05/26/20at 21:02; Start 05/26/20 at 21:00 Divalproex Sodium (Depakote Er) 1,000 mg BID PO Last administered on 05/30/20 08:51; Start 05/27/20 at 09:00 Levetiracetam (Keppra) 750 mg BID PO Last administered on 05/30/20 08:51; Start 05/27/20 at 09:00 Risperidone (RisperDAL) 1 mg HS PO Last administered on 05/29/20at 20:40; Start 05/27/20 at 21:00 Levofloxacin/ Dextrose 100 ml @ 100 mls/hr Q24H IV Last administered on 05/28/20at 23:02; Start 05/27/20 at 20:00; Stop 05/29/20 at 12:00; Status DC Levofloxacin (Levaquin) 500 mg QHS PO Last administered on 05/29/20at 20:40; Start 05/29/20 at 21:00 Lactobacillus Rhamnosus (Culturelle) 1 cap BID PO Last administered on 05/30/20at 08:51; Start 05/29/20 at 21:00 Acetaminophen (Tylenol Supp) 650 mg 1X ONCE LA Last administered on 05/30/20at 00:49; Start 05/30/20 at 01:00; Stop 05/30/20 at 01:01; Status DC Potassium Chloride (Klor-Con) 60 meq 1X ONCE PO ; Start 05/30/20 at 11:00; Stop 05/30/20 at 11:01; Status DC Active Scripts Active Keflex (Cephalexin) 500 Mg Capsule 1 Cap PO TID Keflex (Cephalexin) 500 Mg Capsule 500 Mg PO QID 10 Days Reported Metformin Hcl 500 Mg Tablet 500 Mg PO BIDWMEALS Lena Thyroid (Thyroid,Pork) 120 Mg Tablet 120 Mg PO DAILY Alprazolam 1 Mg Tablet 1 Mg PO TID PRN Vitals/I & O Vital Sign - Last 24 Hours 05/29/20 05/29/20 05/29/20 05/29/20 15:00 19:20 20:05 23:24 Temp 98.8 100.1 100.6 98.8 100.1 100.6 Pulse 94 99 87 Resp 16 21 21 B/P (MAP) 141/46 (77) 140/52 (81) 125/45 (71) Pulse Ox 92 92 92 O2 Delivery Room Air Room Air Room Air Room Air 05/30/20 05/30/20 05/30/20 00:15 03:35 07:40 Temp 100.3 99.5 99.1 100.3 99.5 99.1 Pulse 87 76 86 Resp 22 18 B/P (MAP) 136/52 (80) 112/45 (67) 152/63 (92) Pulse Ox 93 93 99 O2 Delivery Room Air Room Air Room Air Intake and Output 05/29/20 05/29/20 05/30/20 15:00 23:00 07:00 Intake Total 200 ml 1000 ml Output Total 175 ml 1350 ml Balance 25 ml -350 ml Justicifation of Admission Dx: Justifications for Admission: Justification of Admission Dx: Yes CONRADO ASTUDILLO MD May 30, 2020 11:06
[2020-05-30] MEDS: ENOXAPARIN 40 MG/0.4 ML SYRINGE. SQ SCH (16:42)
[2020-05-30] MEDS: PSYLLIUM HUSK (SUGAR FREE) 1 PKT PACKET PO SCH (21:03)
[2020-05-30] MEDS: risperiDONE 1 MG TABLET. PO SCH (21:05)
[2020-05-30] MEDS: traZODone 100 MG TABLET. PO SCH (21:05)
[2020-05-31 03:09] VITALS: BP 131/57
[2020-05-31] MEDS: LEVOTHYROXINE 137 MCG TABLET PO SCH (06:06)
[2020-05-31 06:07] VITALS: BP 119/59
[2020-05-31 06:09] VITALS: BP 136/61
[2020-05-31 06:56] LABS: BASO % 0 % (0-3); EOS # 0.1 x10^3/uL (0.0-0.7); EOS % 1 % (0-3); HEMATOCRIT 33.2 % (36.0-47.0); HEMOGLOBIN 11.6 g/dL (12.0-15.5); LYMPH # 0.9 x10^3/uL (1.0-4.8); LYMPH % 20 % (24-48); MEAN CORPUSCULAR HEMOGLOBIN 30 pg (25-35); MEAN CORPUSCULAR HGB CONC 35 g/dL (31-37); MEAN CORPUSCULAR VOLUME 86 fL (79-100); MONO # 0.4 x10^3/uL (0.0-1.1); MONO % 9 % (0-9); NEUT # 3.2 x10^3/uL (1.8-7.7); NEUT % 70 % (31-73); PLATELET COUNT 305 x10^3/uL (140-400); RED BLOOD COUNT 3.86 x10^6/uL (3.50-5.40); RED CELL DISTRIBUTION WIDTH 12.9 % (11.5-14.5); WHITE BLOOD COUNT 4.6 x10^3/uL (4.0-11.0)
[2020-05-31 07:16] LABS: CALCIUM 7.3 mg/dL (8.5-10.1); CREATININE 0.3 mg/dL (0.6-1.0); GFR 218.1
[2020-05-31] MEDS: INSULIN LISPRO 300 UNITS/3 ML VIAL. SQ SCH ×2 (07:30→11:30)
[2020-05-31] MEDS: DIVALPROEX EXTENDED RELEASE 500 MG TAB.ER.24H. PO SCH (10:10)
[2020-05-31] MEDS: LACTOBACILLUS RHAMNOSUS GG 1 CAPSULE. PO SCH (10:10)
[2020-05-31] MEDS: levETIRAcetam 500 MG TABLET PO SCH (10:10)
[2020-05-31] MEDS: FLUoxetine HCL 20 MG CAPSULE PO SCH (10:10)
--- NOTE | 2020-05-31 10:14 | PDOC ---
PROGRESS NOTES Date of Service: DATE: 05/31/20 TIME: 10:13 Chief Complaint Chief Complaint discharge dx Acute encephalopathy - likely post-ictal given her seizures, her TSH is also undetectable, however if she is s/p thyroidectomy she does need suppressive dosing, will change to levothyroxine 1.75mcg/kg and round up to 137mcg, stop armour thyroid. Consult neurology. Seizure precautions New onset seizures - likely 2/2 xanax dosing as she mostly takes doses at night. Has been recently reduced from 12mg total per day to 8mg total per day. on keppra IV. Neurology method consultant recommendations noted and greatly appreciated. Unfortunately, she must continue on xanax and have prolonged taper, consult psych Delusional behavior - psych to evaluate Hypertension - cont meds Palpitations - telemetry Diabetes mellitus - sliding scale. Will hold metformin in the event she may require CT angiogram with contrast Hypothyroidism s/p thyroidectomy - 35 years ago to levothyroxine 137 mcg for her own safety as [place] Thyroid does not have discrete amounts of T3 or T4 and can be variable and is inappropriate therapy for total thyroid function suppression after a thyroidectomy for thyroid cancer. 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, cokeman to see Hypokalemia - will replace, REPEAT LEVEL AT 1800 05/30 sepsis , present on admission acute metabolic encephalopathy UTI FEN - ADAT PPX - Lovenox FULL CODE Dispo - inpatient for at least 2 midnights PO LEVAQUIN Levetiracetam and depakote REFUSED SNF PLACEMENT d/c home with home health today D/C PLANNING 34 MIN History of Present Illness History of Present Illness 05/24: Patient presented seizure activity while having eeg, neurolgy method consultant aware, will follow results of MRI of the head not available at the time of this note. 05/25: Patient has not presented seizure activity over night not today. She was seen in consultation by Dr. Mejia and changes to her medications have been noted. at bedside reassurance has been provided, improving. Patient anxious to be discharged I have explained the plan of care in detail and all of their concerns addressed to the best of my abilities 05/26: Patient had a witnessed seizure this afternoon with a postictal state. She is still somewhat confused, however patient admits to a history of longstanding epilepsy, with medication noncompliance. 05/27: Patient admits to some confusion yesterday. She does not remember meeting me yesterday after her witnessed seizure. She still slightly confused, difficulty with word finding. 05/30: EATING LUNCH Per patient's , new medication has improved her behav ior. Discussed need for further inpatient monitoring proir to discharge. , pt/ot INTAKE ONLY FAIR D/W RN Vitals Vitals Vital Signs Date Time Temp Pulse Resp B/P (MAP) Pulse Ox O2 Delivery O2 Flow Rate FiO2 05/31/20 08:00 Room Air 05/31/20 06:09 98.7 89 18 136/61 (86) 92 98.7 Physical Exam General: Alert, Cooperative, No acute distress Heart: Regular rate, Normal S1, Normal S2 Lungs: Clear Abdomen: Normal bowel sounds, Soft, No tenderness, No hepatosplenomegaly, No masses Extremities: No clubbing, No cyanosis, No edema, Normal pulses, No tenderness/swelling Skin: No rashes, No breakdown, No significant lesion Labs LABS Laboratory Tests Test 05/30/20 11:46 05/30/20 16:43 05/30/20 18:00 05/30/20 20:52 Glucose (Fingerstick) 168 mg/dL (70-99) 118 mg/dL (70-99) 136 mg/dL (70-99) Potassium Level 3.4 mmol/L (3.5-5.1) Test 05/31/20 05:50 05/31/20 08:07 White Blood Count 4.6 x10^3/uL (4.0-11.0) Red Blood Count 3.86 x10^6/uL (3.50-5.40) Hemoglobin 11.6 g/dL (12.0-15.5) Hematocrit 33.2 % (36.0-47.0) Mean Corpuscular Volume 86 fL (79-100) Mean Corpuscular Hemoglobin 30 pg (25-35) Mean Corpuscular Hemoglobin Concent 35 g/dL (31-37) Red Cell Distribution Width 12.9 % (11.5-14.5) Platelet Count 305 x10^3/uL (140-400) Neutrophils (%) (Auto) 70 % (31-73) Lymphocytes (%) (Auto) 20 % (24-48) Monocytes (%) (Auto) 9 % (0-9) Eosinophils (%) (Auto) 1 % (0-3) Basophils (%) (Auto) 0 % (0-3) Neutrophils # (Auto) 3.2 x10^3/uL (1.8-7.7) Lymphocytes # (Auto) 0.9 x10^3/uL (1.0-4.8) Monocytes # (Auto) 0.4 x10^3/uL (0.0-1.1) Eosinophils # (Auto) 0.1 x10^3/uL (0.0-0.7) Basophils # (Auto) 0.0 x10^3/uL (0.0-0.2) Sodium Level 144 mmol/L (136-145) Potassium Level 3.0 mmol/L (3.5-5.1) Chloride Level 107 mmol/L (98-107) Carbon Dioxide Level 30 mmol/L (21-32) Anion Gap 7 (6-14) Blood Urea Nitrogen 6 mg/dL (7-20) Creatinine 0.3 mg/dL (0.6-1.0) Estimated GFR (Cockcroft-Gault) 218.1 Glucose Level 111 mg/dL (70-99) Calcium Level 7.3 mg/dL (8.5-10.1) Glucose (Fingerstick) 112 mg/dL (70-99) Assessment and Plan Assessmemt and Plan Problems Medical Problems: (1) Seizures Status: Acute Comment Review of Relevant I have reviewed the following items buck (where applicable) has been applied. Labs Laboratory Tests Test 05/29/20 12:20 05/29/20 17:01 05/29/20 20:35 05/30/20 00:59 Glucose (Fingerstick) 113 mg/dL (70-99) 146 mg/dL (70-99) 126 mg/dL (70-99) 92 mg/dL (70-99) Test 05/30/20 06:00 05/30/20 07:40 05/30/20 09:35 05/30/20 11:46 Glucose (Fingerstick) 95 mg/dL (70-99) 99 mg/dL (70-99) 168 mg/dL (70-99) White Blood Count 5.8 x10^3/uL (4.0-11.0) Red Blood Count 3.75 x10^6/uL (3.50-5.40) Hemoglobin 11.1 g/dL (12.0-15.5) Hematocrit 32.2 % (36.0-47.0) Mean Corpuscular Volume 86 fL (79-100) Mean Corpuscular Hemoglobin 30 pg (25-35) Mean Corpuscular Hemoglobin Concent 35 g/dL (31-37) Red Cell Distribution Width 12.9 % (11.5-14.5) Platelet Count 292 x10^3/uL (140-400) Neutrophils (%) (Auto) 74 % (31-73) Lymphocytes (%) (Auto) 15 % (24-48) Monocytes (%) (Auto) 9 % (0-9) Eosinophils (%) (Auto) 2 % (0-3) Basophils (%) (Auto) 0 % (0-3) Neutrophils # (Auto) 4.3 x10^3/uL (1.8-7.7) Lymphocytes # (Auto) 0.9 x10^3/uL (1.0-4.8) Monocytes # (Auto) 0.5 x10^3/uL (0.0-1.1) Eosinophils # (Auto) 0.1 x10^3/uL (0.0-0.7) Basophils # (Auto) 0.0 x10^3/uL (0.0-0.2) Sodium Level 147 mmol/L (136-145) Potassium Level 2.5 mmol/L (3.5-5.1) Chloride Level 109 mmol/L (98-107) Carbon Dioxide Level 32 mmol/L (21-32) Anion Gap 6 (6-14) Blood Urea Nitrogen 6 mg/dL (7-20) Creatinine 0.4 mg/dL (0.6-1.0) Estimated GFR (Cockcroft-Gault) 156.5 BUN/Creatinine Ratio 15 (6-20) Glucose Level 106 mg/dL (70-99) Calcium Level 6.9 mg/dL (8.5-10.1) Total Bilirubin 0.3 mg/dL (0.2-1.0) Aspartate Amino Transf (AST/SGOT) 17 U/L (15-37) Alanine Aminotransferase (ALT/SGPT) 21 U/L (14-59) Alkaline Phosphatase 42 U/L (46-116) Total Protein 5.2 g/dL (6.4-8.2) Albumin 2.1 g/dL (3.4-5.0) Albumin/Globulin Ratio 0.7 (1.0-1.7) Test 05/30/20 16:43 05/30/20 18:00 05/30/20 20:52 05/31/20 05:50 Glucose (Fingerstick) 118 mg/dL (70-99) 136 mg/dL (70-99) Potassium Level 3.4 mmol/L (3.5-5.1) 3.0 mmol/L (3.5-5.1) White Blood Count 4.6 x10^3/uL (4.0-11.0) Red Blood Count 3.86 x10^6/uL (3.50-5.40) Hemoglobin 11.6 g/dL (12.0-15.5) Hematocrit 33.2 % (36.0-47.0) Mean Corpuscular Volume 86 fL (79-100) Mean Corpuscular Hemoglobin 30 pg (25-35) Mean Corpuscular Hemoglobin Concent 35 g/dL (31-37) Red Cell Distribution Width 12.9 % (11.5-14.5) Platelet Count 305 x10^3/uL (140-400) Neutrophils (%) (Auto) 70 % (31-73) Lymphocytes (%) (Auto) 20 % (24-48) Monocytes (%) (Auto) 9 % (0-9) Eosinophils (%) (Auto) 1 % (0-3) Basophils (%) (Auto) 0 % (0-3) Neutrophils # (Auto) 3.2 x10^3/uL (1.8-7.7) Lymphocytes # (Auto) 0.9 x10^3/uL (1.0-4.8) Monocytes # (Auto) 0.4 x10^3/uL (0.0-1.1) Eosinophils # (Auto) 0.1 x10^3/uL (0.0-0.7) Basophils # (Auto) 0.0 x10^3/uL (0.0-0.2) Sodium Level 144 mmol/L (136-145) Chloride Level 107 mmol/L (98-107) Carbon Dioxide Level 30 mmol/L (21-32) Anion Gap 7 (6-14) Blood Urea Nitrogen 6 mg/dL (7-20) Creatinine 0.3 mg/dL (0.6-1.0) Estimated GFR (Cockcroft-Gault) 218.1 Glucose Level 111 mg/dL (70-99) Calcium Level 7.3 mg/dL (8.5-10.1) Test 05/31/20 08:07 Glucose (Fingerstick) 112 mg/dL (70-99) Laboratory Tests Test 05/30/20 11:46 05/30/20 16:43 05/30/20 18:00 05/30/20 20:52 Glucose (Fingerstick) 168 mg/dL (70-99) 118 mg/dL (70-99) 136 mg/dL (70-99) Potassium Level 3.4 mmol/L (3.5-5.1) Test 05/31/20 05:50 05/31/20 08:07 White Blood Count 4.6 x10^3/uL (4.0-11.0) Red Blood Count 3.86 x10^6/uL (3.50-5.40) Hemoglobin 11.6 g/dL (12.0-15.5) Hematocrit 33.2 % (36.0-47.0) Mean Corpuscular Volume 86 fL (79-100) Mean Corpuscular Hemoglobin 30 pg (25-35) Mean Corpuscular Hemoglobin Concent 35 g/dL (31-37) Red Cell Distribution Width 12.9 % (11.5-14.5) Platelet Count 305 x10^3/uL (140-400) Neutrophils (%) (Auto) 70 % (31-73) Lymphocytes (%) (Auto) 20 % (24-48) Monocytes (%) (Auto) 9 % (0-9) Eosinophils (%) (Auto) 1 % (0-3) Basophils (%) (Auto) 0 % (0-3) Neutrophils # (Auto) 3.2 x10^3/uL (1.8-7.7) Lymphocytes # (Auto) 0.9 x10^3/uL (1.0-4.8) Monocytes # (Auto) 0.4 x10^3/uL (0.0-1.1) Eosinophils # (Auto) 0.1 x10^3/uL (0.0-0.7) Basophils # (Auto) 0.0 x10^3/uL (0.0-0.2) Sodium Level 144 mmol/L (136-145) Potassium Level 3.0 mmol/L (3.5-5.1) Chloride Level 107 mmol/L (98-107) Carbon Dioxide Level 30 mmol/L (21-32) Anion Gap 7 (6-14) Blood Urea Nitrogen 6 mg/dL (7-20) Creatinine 0.3 mg/dL (0.6-1.0) Estimated GFR (Cockcroft-Gault) 218.1 Glucose Level 111 mg/dL (70-99) Calcium Level 7.3 mg/dL (8.5-10.1) Glucose (Fingerstick) 112 mg/dL (70-99) Microbiology 05/28/20 Urine Culture - Final, Complete 05/28/20 Antimicrobic Susceptibility - Final, Complete 05/23/20 Blood Culture - Final, Complete NO GROWTH AFTER 5 DAYS Medications Current Medications Ondansetron HCl (Zofran) 4 mg 1X ONCE IVP Last administered on 05/22/20at 12:57; Start 05/22/20 at 12:45; Stop 05/22/20 at 12:46; Status DC Lorazepam (Ativan Inj) 1 mg PRN Q4HRS PRN IVP ANXIETY / AGITATION Last administered on 05/22/20at 12:57; Start 05/22/20 at 13:00; Stop 05/22/20 at 13:02; Status DC Ondansetron HCl (Zofran) 4 mg PRN Q8HRS PRN IV NAUSEA/VOMITING; Start 05/22/20 at 13:00; Stop 05/22/20 at 13:00; Status DC Sodium Chloride 1,000 ml @ 100 mls/hr Q10H IV Last administered on 05/23/20at 08:47; Start 05/22/20 at 12:47; Stop 05/23/20 at 12:46; Status DC Ondansetron HCl (Zofran) 4 mg PRN Q4HRS PRN IV NAUSEA/VOMITING; Start 05/22/20 at 13:00 Lorazepam (Ativan Inj) 2 mg 1X ONCE IVP Last administered on 05/22/20at 13:17; Start 05/22/20 at 13:15; Stop 05/22/20 at 13:16; Status DC Metformin HCl (Glucophage) 500 mg BIDWMEALS PO ; Start 05/22/20 at 17:00; Stop 05/22/20 at 16:37; Status DC Alprazolam (Xanax) 2 mg Q6HRS PO ; Start 05/22/20 at 18:00; Stop 05/22/20 at 15:29; Status DC Fluoxetine HCl (PROzac) 40 mg DAILYWBKFT PO Last administered on 05/31/20at 10:10; Start 05/23/20 at 08:00 Thyroid ([place] Thyroid) 180 mg DAILY06 PO ; Start 05/23/20 at 06:00; Stop 05/22/20 at 15:39; Status DC Trazodone HCl (Desyrel) 100 mg HS PO Last administered on 05/30/20at 21:05; Start 05/22/20 at 21:00 Levetiracetam 1000 mg/Dextrose 110 ml @ 750 mls/hr 1X ONCE IV ; Start 05/22/20 at 15:00; Stop 05/22/20 at 15:08; Status Cancel Levetiracetam 500 mg/Dextrose 105 ml @ 420 mls/hr Q12H IV Last administered on 05/24/20at 03:24; Start 05/23/20 at 03:30; Stop 05/24/20 at 11:19; Status DC Alprazolam (Xanax) 1 mg TID PRN PO ANXIETY / AGITATION Last administered on 05/23/20at 15:23; Start 05/22/20 at 15:30; Stop 05/23/20 at 19:18; Status DC Levothyroxine Sodium (Synthroid) 137 mcg DAILY06 PO Last administered on 05/31/20at 06:06; Start 05/23/20 at 06:00 Enoxaparin Sodium (Lovenox 40mg Syringe) 40 mg Q24H SQ Last administered on 05/30/20at 16:42; Start 05/22/20 at 17:00 Levetiracetam 750 mg/Dextrose 107.5 ml @ 440 mls/hr 1X ONCE IV Last administered on 05/22/20at 16:11; Start 05/22/20 at 16:00; Stop 05/22/20 at 16:14; Status DC Insulin Human Lispro (HumaLOG) 0-7 UNITS TIDACHC SQ Last administered on 05/30/20at 12:30; Start 05/22/20 at 16:30 Dextrose (Dextrose 50%-Water Syringe) 12.5 gm PRN Q15MIN PRN IV SEE COMMENTS; Start 05/22/20 at 16:15 Psyllium Hydrophilic Mucilloid (Metamucil Fiber Packet) 1 pkt QHS PO Last administered on 05/30/20at 21:03; Start 05/22/20 at 21:00 Acetaminophen (Tylenol) 650 mg PRN Q6HRS PRN PO MILD PAIN / TEMP > 100.3'F Last administered on 05/23/20at 17:53; Start 05/22/20 at 16:15 Multi-Ingredient Mouthwash/Gargle (Magic Mouthwash) 10 ml PRN QID PRN PO MOUTH PAIN Last administered on 05/23/20at 09:20; Start 05/22/20 at 16:15 Gabapentin (Neurontin) 300 mg TID PO Last administered on 05/27/20at 21:03; Start 05/23/20 at 21:00; Stop 05/28/20 at 09:11; Status DC Risperidone (RisperDAL) 1 mg QHS PO ; Start 05/23/20 at 21:00; Stop 05/24/20 at 17:42; Status DC Clonazepam (KlonoPIN) 0.5 mg PRN Q6HRS PRN PO ANXIETY / AGITATION Last administered on 05/26/20at 19:50; Start 05/23/20 at 19:30 Levetiracetam 750 mg/Dextrose 107.5 ml @ 420 mls/hr Q12H IV ; Start 05/24/20 at 21:00; Stop 05/24/20 at 20:54; Status DC Levetiracetam 1000 mg/Dextrose 110 ml @ 440 mls/hr 1X STAT IV Last administered on 05/24/20at 12:01; Start 05/24/20 at 11:21; Stop 05/24/20 at 11:35; Status DC Gadoterate Meglumine (Dotarem) 15.2 ml 1X ONCE IVP Last administered on 05/24/20at 14:15; Start 05/24/20 at 14:15; Stop 05/24/20 at 14:16; Status DC Sodium Chloride 1,000 ml @ 65 mls/hr [id number] IV Last administered on 05/30/20at 21:03; Start 05/24/20 at 15:45 Lorazepam (Ativan) 1 mg Q6HRS PO Last administered on 05/31/20 06:06; Start 05/24/20 at 18:00 Levetiracetam 750 mg/Dextrose 107.5 ml @ 420 mls/hr Q12H IV Last administered on 05/25/20at 22:24; Start 05/24/20 at 21:00; Stop 05/26/20 at 08:38; Status DC Valproic Acid 500 mg/Dextrose 55 ml @ 55 mls/hr Q12HR IV Last administered on 05/25/20at 20:26; Start 05/25/20 at 01:45; Stop 05/26/20 at 08:38; Status DC Levetiracetam (Keppra) 500 mg BID PO Last administered on 05/26/20 21:02; Start 05/26/20 at 09:00; Stop 05/27/20 at 08:31; Status DC Divalproex Sodium (Depakote Er) 500 mg BID PO Last administered on 05/26/20 21:02; Start 05/26/20 at 09:00; Stop 05/27/20 at 08:31; Status DC Lorazepam (Ativan Inj) 1 mg PRN Q4HRS PRN IVP ANXIETY / AGITATION Last administered on 05/26/20at 21:02; Start 05/26/20 at 21:00 Divalproex Sodium (Depakote Er) 1,000 mg BID PO Last administered on 05/31/20 10:10; Start 05/27/20 at 09:00 Levetiracetam (Keppra) 750 mg BID PO Last administered on 05/31/20 10:10; Start 05/27/20 at 09:00 Risperidone (RisperDAL) 1 mg HS PO Last administered on 05/30/20at 21:05; Start 05/27/20 at 21:00 Levofloxacin/ Dextrose 100 ml @ 100 mls/hr Q24H IV Last administered on 05/28/20at 23:02; Start 05/27/20 at 20:00; Stop 05/29/20 at 12:00; Status DC Levofloxacin (Levaquin) 500 mg QHS PO Last administered on 05/30/20at 21:05; Start 05/29/20 at 21:00 Lactobacillus Rhamnosus (Culturelle) 1 cap BID PO Last administered on 05/31/20at 10:10; Start 05/29/20 at 21:00 Acetaminophen (Tylenol Supp) 650 mg 1X ONCE [place] Last administered on 05/30/20at 00:49; Start 05/30/20 at 01:00; Stop 05/30/20 at 01:01; Status DC Potassium Chloride (Klor-Con) 60 meq 1X ONCE PO Last administered on 05/30/20at 11:44; Start 05/30/20 at 11:00; Stop 05/30/20 at 11:01; Status DC Active Scripts Active Keflex (Cephalexin) 500 Mg Capsule 1 Cap PO TID Keflex (Cephalexin) 500 Mg Capsule 500 Mg PO QID 10 Days Reported Metformin Hcl 500 Mg Tablet 500 Mg PO BIDWMEALS [place] Thyroid (Thyroid,Pork) 120 Mg Tablet 120 Mg PO DAILY Alprazolam 1 Mg Tablet 1 Mg PO TID PRN Vitals/I & O Vital Sign - Last 24 Hours 05/30/20 05/30/20 05/30/20 05/30/20 11:00 14:40 19:23 19:45 Temp 98.9 98.2 98.8 98.9 98.2 98.8 Pulse 86 83 94 Resp 16 17 18 B/P (MAP) 135/88 (104) 150/64 (92) 130/56 (80) Pulse Ox 94 94 95 O2 Delivery Room Air Room Air Room Air Room Air 05/30/20 05/31/20 05/31/20 05/31/20 23:07 03:09 06:09 08:00 Temp 98.9 98.8 98.7 98.9 98.8 98.7 Pulse 98 77 89 Resp 18 18 18 B/P (MAP) 154/68 (96) 131/57 (81) 136/61 (86) Pulse Ox 95 94 92 O2 Delivery Room Air Room Air Room Air Room Air Intake and Output 05/30/20 05/30/20 05/31/20 15:00 23:00 07:00 Intake Total 240 ml 862.4 ml Output Total 1000 ml 2350 ml Balance -1000 ml 240 ml -1487.6 ml Justicifation of Admission Dx: Justifications for Admission: Justification of Admission Dx: Yes CONRADO ASTUDILLO MD May 31, 2020 10:14
[2020-05-31 10:20] VITALS: BP 147/71
--- NOTE | 2020-05-31 10:34 | PDOC ---
PROGRESS NOTES Date of Service DATE: 05/31/20 TIME: 10:31 Assessment Problems Medical Problems: (1) Seizures Status: Acute New seizures, EEG showed polyspike and wave activity at the rate of 2.5-3 Hz, generalized epilepsy. No seizures since 05/26 Chronic high-dose benzodiazepine use, contribution from benzodiazepine withdrawal Hallucinations, better on Risperdal; gabapentin discontinued. Major depressive disorder, generalized anxiety disorder Encephalopathy, combination of psychiatric and epileptic problems. Thyroid cancer history Plan Levetiracetam and depakote She is sleeping this morning, but overall has been more alert and cooperative, discharge as soon as today does not want her in nursing home Follow-up with me in 4-8 weeks Discussed with Objective Vital Signs Date Time Temp Pulse Resp B/P (MAP) Pulse Ox O2 Delivery O2 Flow Rate FiO2 05/31/20 10:20 98.3 84 18 147/71 (96) 96 Room Air 98.3 Intake and Output 05/31/20 07:00 Intake Total 1102.4 ml Output Total 3350 ml Balance -2247.6 ml Intake Oral 540 ml IV Total 562.4 ml Output Urine Total 3350 ml PHYSICAL EXAM Sleepy, Arouses a little, tells me she's in [facility]. EOMI. CN: no focal findings. Muscle tone: normal. Muscle strength: moves all extremities DTR: 1+ Plantar reflex: flexor Gait: not examined in bed. Sensory exam: no abnormal findings. No cerebellar signs elicited. Review of Relevant I have reviewed the following items buck (where applicable) has been applied. Labs Laboratory Tests Test 05/29/20 12:20 05/29/20 17:01 05/29/20 20:35 05/30/20 00:59 Glucose (Fingerstick) 113 mg/dL (70-99) 146 mg/dL (70-99) 126 mg/dL (70-99) 92 mg/dL (70-99) Test 05/30/20 06:00 05/30/20 07:40 05/30/20 09:35 05/30/20 11:46 Glucose (Fingerstick) 95 mg/dL (70-99) 99 mg/dL (70-99) 168 mg/dL (70-99) White Blood Count 5.8 x10^3/uL (4.0-11.0) Red Blood Count 3.75 x10^6/uL (3.50-5.40) Hemoglobin 11.1 g/dL (12.0-15.5) Hematocrit 32.2 % (36.0-47.0) Mean Corpuscular Volume 86 fL (79-100) Mean Corpuscular Hemoglobin 30 pg (25-35) Mean Corpuscular Hemoglobin Concent 35 g/dL (31-37) Red Cell Distribution Width 12.9 % (11.5-14.5) Platelet Count 292 x10^3/uL (140-400) Neutrophils (%) (Auto) 74 % (31-73) Lymphocytes (%) (Auto) 15 % (24-48) Monocytes (%) (Auto) 9 % (0-9) Eosinophils (%) (Auto) 2 % (0-3) Basophils (%) (Auto) 0 % (0-3) Neutrophils # (Auto) 4.3 x10^3/uL (1.8-7.7) Lymphocytes # (Auto) 0.9 x10^3/uL (1.0-4.8) Monocytes # (Auto) 0.5 x10^3/uL (0.0-1.1) Eosinophils # (Auto) 0.1 x10^3/uL (0.0-0.7) Basophils # (Auto) 0.0 x10^3/uL (0.0-0.2) Sodium Level 147 mmol/L (136-145) Potassium Level 2.5 mmol/L (3.5-5.1) Chloride Level 109 mmol/L (98-107) Carbon Dioxide Level 32 mmol/L (21-32) Anion Gap 6 (6-14) Blood Urea Nitrogen 6 mg/dL (7-20) Creatinine 0.4 mg/dL (0.6-1.0) Estimated GFR (Cockcroft-Gault) 156.5 BUN/Creatinine Ratio 15 (6-20) Glucose Level 106 mg/dL (70-99) Calcium Level 6.9 mg/dL (8.5-10.1) Total Bilirubin 0.3 mg/dL (0.2-1.0) Aspartate Amino Transf (AST/SGOT) 17 U/L (15-37) Alanine Aminotransferase (ALT/SGPT) 21 U/L (14-59) Alkaline Phosphatase 42 U/L (46-116) Total Protein 5.2 g/dL (6.4-8.2) Albumin 2.1 g/dL (3.4-5.0) Albumin/Globulin Ratio 0.7 (1.0-1.7) Test 05/30/20 16:43 05/30/20 18:00 05/30/20 20:52 05/31/20 05:50 Glucose (Fingerstick) 118 mg/dL (70-99) 136 mg/dL (70-99) Potassium Level 3.4 mmol/L (3.5-5.1) 3.0 mmol/L (3.5-5.1) White Blood Count 4.6 x10^3/uL (4.0-11.0) Red Blood Count 3.86 x10^6/uL (3.50-5.40) Hemoglobin 11.6 g/dL (12.0-15.5) Hematocrit 33.2 % (36.0-47.0) Mean Corpuscular Volume 86 fL (79-100) Mean Corpuscular Hemoglobin 30 pg (25-35) Mean Corpuscular Hemoglobin Concent 35 g/dL (31-37) Red Cell Distribution Width 12.9 % (11.5-14.5) Platelet Count 305 x10^3/uL (140-400) Neutrophils (%) (Auto) 70 % (31-73) Lymphocytes (%) (Auto) 20 % (24-48) Monocytes (%) (Auto) 9 % (0-9) Eosinophils (%) (Auto) 1 % (0-3) Basophils (%) (Auto) 0 % (0-3) Neutrophils # (Auto) 3.2 x10^3/uL (1.8-7.7) Lymphocytes # (Auto) 0.9 x10^3/uL (1.0-4.8) Monocytes # (Auto) 0.4 x10^3/uL (0.0-1.1) Eosinophils # (Auto) 0.1 x10^3/uL (0.0-0.7) Basophils # (Auto) 0.0 x10^3/uL (0.0-0.2) Sodium Level 144 mmol/L (136-145) Chloride Level 107 mmol/L (98-107) Carbon Dioxide Level 30 mmol/L (21-32) Anion Gap 7 (6-14) Blood Urea Nitrogen 6 mg/dL (7-20) Creatinine 0.3 mg/dL (0.6-1.0) Estimated GFR (Cockcroft-Gault) 218.1 Glucose Level 111 mg/dL (70-99) Calcium Level 7.3 mg/dL (8.5-10.1) Test 05/31/20 08:07 Glucose (Fingerstick) 112 mg/dL (70-99) Laboratory Tests Test 05/30/20 11:46 05/30/20 16:43 05/30/20 18:00 05/30/20 20:52 Glucose (Fingerstick) 168 mg/dL (70-99) 118 mg/dL (70-99) 136 mg/dL (70-99) Potassium Level 3.4 mmol/L (3.5-5.1) Test 05/31/20 05:50 05/31/20 08:07 White Blood Count 4.6 x10^3/uL (4.0-11.0) Red Blood Count 3.86 x10^6/uL (3.50-5.40) Hemoglobin 11.6 g/dL (12.0-15.5) Hematocrit 33.2 % (36.0-47.0) Mean Corpuscular Volume 86 fL (79-100) Mean Corpuscular Hemoglobin 30 pg (25-35) Mean Corpuscular Hemoglobin Concent 35 g/dL (31-37) Red Cell Distribution Width 12.9 % (11.5-14.5) Platelet Count 305 x10^3/uL (140-400) Neutrophils (%) (Auto) 70 % (31-73) Lymphocytes (%) (Auto) 20 % (24-48) Monocytes (%) (Auto) 9 % (0-9) Eosinophils (%) (Auto) 1 % (0-3) Basophils (%) (Auto) 0 % (0-3) Neutrophils # (Auto) 3.2 x10^3/uL (1.8-7.7) Lymphocytes # (Auto) 0.9 x10^3/uL (1.0-4.8) Monocytes # (Auto) 0.4 x10^3/uL (0.0-1.1) Eosinophils # (Auto) 0.1 x10^3/uL (0.0-0.7) Basophils # (Auto) 0.0 x10^3/uL (0.0-0.2) Sodium Level 144 mmol/L (136-145) Potassium Level 3.0 mmol/L (3.5-5.1) Chloride Level 107 mmol/L (98-107) Carbon Dioxide Level 30 mmol/L (21-32) Anion Gap 7 (6-14) Blood Urea Nitrogen 6 mg/dL (7-20) Creatinine 0.3 mg/dL (0.6-1.0) Estimated GFR (Cockcroft-Gault) 218.1 Glucose Level 111 mg/dL (70-99) Calcium Level 7.3 mg/dL (8.5-10.1) Glucose (Fingerstick) 112 mg/dL (70-99) Microbiology 05/28/20 Urine Culture - Final, Complete 05/28/20 Antimicrobic Susceptibility - Final, Complete 05/23/20 Blood Culture - Final, Complete NO GROWTH AFTER 5 DAYS Medications Current Medications Ondansetron HCl (Zofran) 4 mg 1X ONCE IVP Last administered on 05/22/20at 12:57; Start 05/22/20 at 12:45; Stop 05/22/20 at 12:46; Status DC Lorazepam (Ativan Inj) 1 mg PRN Q4HRS PRN IVP ANXIETY / AGITATION Last administered on 05/22/20at 12:57; Start 05/22/20 at 13:00; Stop 05/22/20 at 13:02; Status DC Ondansetron HCl (Zofran) 4 mg PRN Q8HRS PRN IV NAUSEA/VOMITING; Start 05/22/20 at 13:00; Stop 05/22/20 at 13:00; Status DC Sodium Chloride 1,000 ml @ 100 mls/hr Q10H IV Last administered on 05/23/20at 08:47; Start 05/22/20 at 12:47; Stop 05/23/20 at 12:46; Status DC Ondansetron HCl (Zofran) 4 mg PRN Q4HRS PRN IV NAUSEA/VOMITING; Start 05/22/20 at 13:00 Lorazepam (Ativan Inj) 2 mg 1X ONCE IVP Last administered on 05/22/20at 13:17; Start 05/22/20 at 13:15; Stop 05/22/20 at 13:16; Status DC Metformin HCl (Glucophage) 500 mg BIDWMEALS PO ; Start 05/22/20 at 17:00; Stop 05/22/20 at 16:37; Status DC Alprazolam (Xanax) 2 mg Q6HRS PO ; Start 05/22/20 at 18:00; Stop 05/22/20 at 15:29; Status DC Fluoxetine HCl (PROzac) 40 mg DAILYWBKFT PO Last administered on 05/31/20at 10:10; Start 05/23/20 at 08:00 Thyroid ([place] Thyroid) 180 mg DAILY06 PO ; Start 05/23/20 at 06:00; Stop 05/22/20 at 15:39; Status DC Trazodone HCl (Desyrel) 100 mg HS PO Last administered on 05/30/20at 21:05; Start 05/22/20 at 21:00 Levetiracetam 1000 mg/Dextrose 110 ml @ 750 mls/hr 1X ONCE IV ; Start 05/22/20 at 15:00; Stop 05/22/20 at 15:08; Status Cancel Levetiracetam 500 mg/Dextrose 105 ml @ 420 mls/hr Q12H IV Last administered on 05/24/20at 03:24; Start 05/23/20 at 03:30; Stop 05/24/20 at 11:19; Status DC Alprazolam (Xanax) 1 mg TID PRN PO ANXIETY / AGITATION Last administered on 05/23/20at 15:23; Start 05/22/20 at 15:30; Stop 05/23/20 at 19:18; Status DC Levothyroxine Sodium (Synthroid) 137 mcg DAILY06 PO Last administered on 05/31/20at 06:06; Start 05/23/20 at 06:00 Enoxaparin Sodium (Lovenox 40mg Syringe) 40 mg Q24H SQ Last administered on 05/30/20at 16:42; Start 05/22/20 at 17:00 Levetiracetam 750 mg/Dextrose 107.5 ml @ 440 mls/hr 1X ONCE IV Last administered on 05/22/20at 16:11; Start 05/22/20 at 16:00; Stop 05/22/20 at 16:14; Status DC Insulin Human Lispro (HumaLOG) 0-7 UNITS TIDACHC SQ Last administered on 05/30/20at 12:30; Start 05/22/20 at 16:30 Dextrose (Dextrose 50%-Water Syringe) 12.5 gm PRN Q15MIN PRN IV SEE COMMENTS; Start 05/22/20 at 16:15 Psyllium Hydrophilic Mucilloid (Metamucil Fiber Packet) 1 pkt QHS PO Last administered on 05/30/20at 21:03; Start 05/22/20 at 21:00 Acetaminophen (Tylenol) 650 mg PRN Q6HRS PRN PO MILD PAIN / TEMP > 100.3'F Last administered on 05/23/20at 17:53; Start 05/22/20 at 16:15 Multi-Ingredient Mouthwash/Gargle (Magic Mouthwash) 10 ml PRN QID PRN PO MOUTH PAIN Last administered on 05/23/20at 09:20; Start 05/22/20 at 16:15 Gabapentin (Neurontin) 300 mg TID PO Last administered on 05/27/20at 21:03; St art 05/23/20 at 21:00; Stop 05/28/20 at 09:11; Status DC Risperidone (RisperDAL) 1 mg QHS PO ; Start 05/23/20 at 21:00; Stop 05/24/20 at 17:42; Status DC Clonazepam (KlonoPIN) 0.5 mg PRN Q6HRS PRN PO ANXIETY / AGITATION Last administered on 05/26/20at 19:50; Start 05/23/20 at 19:30 Levetiracetam 750 mg/Dextrose 107.5 ml @ 420 mls/hr Q12H IV ; Start 05/24/20 at 21:00; Stop 05/24/20 at 20:54; Status DC Levetiracetam 1000 mg/Dextrose 110 ml @ 440 mls/hr 1X STAT IV Last administered on 05/24/20at 12:01; Start 05/24/20 at 11:21; Stop 05/24/20 at 11:35; Status DC Gadoterate Meglumine (Dotarem) 15.2 ml 1X ONCE IVP Last administered on 05/24/20at 14:15; Start 05/24/20 at 14:15; Stop 05/24/20 at 14:16; Status DC Sodium Chloride 1,000 ml @ 65 mls/hr [id number] IV Last administered on 05/30/20at 21:03; Start 05/24/20 at 15:45 Lorazepam (Ativan) 1 mg Q6HRS PO Last administered on 05/31/20at 06:06; Start 05/24/20 at 18:00 Levetiracetam 750 mg/Dextrose 107.5 ml @ 420 mls/hr Q12H IV Last administered on 05/25/20at 22:24; Start 05/24/20 at 21:00; Stop 05/26/20 at 08:38; Status DC Valproic Acid 500 mg/Dextrose 55 ml @ 55 mls/hr Q12HR IV Last administered on 05/25/20at 20:26; Start 05/25/20 at 01:45; Stop 05/26/20 at 08:38; Status DC Levetiracetam (Keppra) 500 mg BID PO Last administered on 05/26/20at 21:02; Start 05/26/20 at 09:00; Stop 05/27/20 at 08:31; Status DC Divalproex Sodium (Depakote Er) 500 mg BID PO Last administered on 05/26/20at 21:02; Start 05/26/20 at 09:00; Stop 05/27/20 at 08:31; Status DC Lorazepam (Ativan Inj) 1 mg PRN Q4HRS PRN IVP ANXIETY / AGITATION Last administered on 05/26/20at 21:02; Start 05/26/20 at 21:00 Divalproex Sodium (Depakote Er) 1,000 mg BID PO Last administered on 05/31/20at 10:10; Start 05/27/20 at 09:00 Levetiracetam (Keppra) 750 mg BID PO Last administered on 05/31/20at 10:10; Start 05/27/20 at 09:00 Risperidone (RisperDAL) 1 mg HS PO Last administered on 05/30/20at 21:05; Start 05/27/20 at 21:00 Levofloxacin/ Dextrose 100 ml @ 100 mls/hr Q24H IV Last administered on 05/28/20at 23:02; Start 05/27/20 at 20:00; Stop 05/29/20 at 12:00; Status DC Levofloxacin (Levaquin) 500 mg QHS PO Last administered on 05/30/20at 21:05; Start 05/29/20 at 21:00 Lactobacillus Rhamnosus (Culturelle) 1 cap BID PO Last administered on 05/31/20at 10:10; Start 05/29/20 at 21:00 Acetaminophen (Tylenol Supp) 650 mg 1X ONCE NV Last administered on 05/30/20at 00:49; Start 05/30/20 at 01:00; Stop 05/30/20 at 01:01; Status DC Potassium Chloride (Klor-Con) 60 meq 1X ONCE PO Last administered on 05/30/20at 11:44; Start 05/30/20 at 11:00; Stop 05/30/20 at 11:01; Status DC Active Scripts Active Keflex (Cephalexin) 500 Mg Capsule 1 Cap PO TID Keflex (Cephalexin) 500 Mg Capsule 500 Mg PO QID 10 Days Reported Metformin Hcl 500 Mg Tablet 500 Mg PO BIDWMEALS [place] Thyroid (Thyroid,Pork) 120 Mg Tablet 120 Mg PO DAILY Alprazolam 1 Mg Tablet 1 Mg PO TID PRN Vitals/I & O Vital Sign - Last 24 Hours 05/30/20 05/30/20 05/30/20 05/30/20 11:00 14:40 19:23 19:45 Temp 98.9 98.2 98.8 98.9 98.2 98.8 Pulse 86 83 94 Resp 16 17 18 B/P (MAP) 135/88 (104) 150/64 (92) 130/56 (80) Pulse Ox 94 94 95 O2 Delivery Room Air Room Air Room Air Room Air 05/30/20 05/31/20 05/31/20 05/31/20 23:07 03:09 06:09 08:00 Temp 98.9 98.8 98.7 98.9 98.8 98.7 Pulse 98 77 89 Resp 18 18 18 B/P (MAP) 154/68 (96) 131/57 (81) 136/61 (86) Pulse Ox 95 94 92 O2 Delivery Room Air Room Air Room Air Room Air 05/31/20 10:20 Temp 98.3 98.3 Pulse 84 Resp 18 B/P (MAP) 147/71 (96) Pulse Ox 96 O2 Delivery Room Air Intake and Output 05/30/20 05/30/20 05/31/20 15:00 23:00 07:00 Intake Total 240 ml 862.4 ml Output Total 1000 ml 2350 ml Balance -1000 ml 240 ml -1487.6 ml Justicifation of Admission Dx: Justifications for Admission: Justification of Admission Dx: Yes LILO MCDANIEL MD May 31, 2020 10:34
--- NOTE | 2020-05-31 11:44 | PDOC3 ---
Discharge Summary Date of Admission: May 22, 2020 Date of Discharge: May 31, 2020 Follow-Up: 1-2 days Admitting Diagnosis comment: discharge dx Acute encephalopathy - likely post-ictal given her seizures, her TSH is also undetectable, however if she is s/p thyroidectomy she does need suppressive dosing, will change to levothyroxine 1.75mcg/kg and round up to 137mcg, stop armour thyroid. Consult neurology. Seizure precautions New onset seizures - likely 2/2 xanax dosing as she mostly takes doses at night. Has been recently reduced from 12mg total per day to 8mg total per day. on keppra IV. Neurology sales representative consultant recommendations noted and greatly appreciated. Unfortunately, she must continue on xanax and have prolonged taper, consult psych Delusional behavior - psych to evaluate Hypertension - cont meds Palpitations - telemetry Diabetes mellitus - sliding scale. Will hold metformin in the event she may require CT angiogram with contrast Hypothyroidism s/p thyroidectomy - 35 years ago to levothyroxine 137 mcg for her own safety as [place] Thyroid does not have discrete amounts of T3 or T4 and can be variable and is inappropriate therapy for total thyroid function suppression after a thyroidectomy for thyroid cancer. 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, recreation activities coordinator to see Hypokalemia - will replace, REPEAT LEVEL AT 1800 05/30 sepsis , present on admission acute metabolic encephalopathy UTI FEN - ADAT PPX - Lovenox FULL CODE Dispo - inpatient for at least 2 midnights PO LEVAQUIN Levetiracetam and depakote REFUSED SNF PLACEMENT d/c home with home health today D/C PLANNING 34 MIN History of Present Illness History of Present Illness 05/24: Patient presented seizure activity while having eeg, neurolgy sales representative consultant aware, will follow results of MRI of the head not available at the time of this note. 05/25: Patient has not presented seizure activity over night not today. She was seen in consultation by Dr. Mejia and changes to her medications have been noted. at bedside reassurance has been provided, improving. Patient anxious to be discharged I have explained the plan of care in detail and all of their concerns addressed to the best of my abilities 05/26: Patient had a witnessed seizure this afternoon with a postictal state. She is still somewhat confused, however patient admits to a history of longstanding epilepsy, with medication noncompliance. 05/27: Patient admits to some confusion yesterday. She does not remember meeting me yesterday after her witnessed seizure. She still slightly confused, difficulty with word finding. 05/31 : EATING LUNCH Per patient's , new medication has improved her behavior. Discussed need for further inpatient monitoring proir to discharge. , pt/ot, INTAKE FAIR D/W RN Vitals Vitals Vital Signs Date Time Temp Pulse Resp B/P (MAP) Pulse Ox O2 Delivery O2 Flow Rate FiO2 05/31/20 08:00 Room Air 05/31/20 06:09 98.7 89 18 136/61 (86) 92 98.7 Physical Exam General: Alert, Cooperative, No acute distress Heart: Regular rate, Normal S1, Normal S2 Lungs: Clear Abdomen: Normal bowel sounds, Soft, No tenderness, No hepatosplenomegaly, No masses Extremities: No clubbing, No cyanosis, No edema, Normal pulses, No tenderness/swelling Skin: No rashes, No breakdown, No significant lesion FINAL DIAGNOSIS Problems Medical Problems: (1) Seizures Status: Acute Brief Hospital Course Ms. Kevin is a 74 old [sex] who presented with [ ] CONDITION AT DISCHARGE: Improved Discharge Medications Current Medications Ondansetron HCl (Zofran) 4 mg 1X ONCE IVP Last administered on 05/22/20at 12:57; Start 05/22/20 at 12:45; Stop 05/22/20 at 12:46; Status DC Lorazepam (Ativan Inj) 1 mg PRN Q4HRS PRN IVP ANXIETY / AGITATION Last administered on 05/22/20at 12:57; Start 05/22/20 at 13:00; Stop 05/22/20 at 13:02; Status DC Ondansetron HCl (Zofran) 4 mg PRN Q8HRS PRN IV NAUSEA/VOMITING; Start 05/22/20 at 13:00; Stop 05/22/20 at 13:00; Status DC Sodium Chloride 1,000 ml @ 100 mls/hr Q10H IV Last administered on 05/23/20at 08:47; Start 05/22/20 at 12:47; Stop 05/23/20 at 12:46; Status DC Ondansetron HCl (Zofran) 4 mg PRN Q4HRS PRN IV NAUSEA/VOMITING; Start 05/22/20 at 13:00 Lorazepam (Ativan Inj) 2 mg 1X ONCE IVP Last administered on 05/22/20at 13:17; Start 05/22/20 at 13:15; Stop 05/22/20 at 13:16; Status DC Metformin HCl (Glucophage) 500 mg BIDWMEALS PO ; Start 05/22/20 at 17:00; Stop 05/22/20 at 16:37; Status DC Alprazolam (Xanax) 2 mg Q6HRS PO ; Start 05/22/20 at 18:00; Stop 05/22/20 at 15:29; Status DC Fluoxetine HCl (PROzac) 40 mg DAILYWBKFT PO Last administered on 05/31/20at 10:10; Start 05/23/20 at 08:00 Thyroid ([place] Thyroid) 180 mg DAILY06 PO ; Start 05/23/20 at 06:00; Stop 05/22/20 at 15:39; Status DC Trazodone HCl (Desyrel) 100 mg HS PO Last administered on 05/30/20at 21:05; Start 05/22/20 at 21:00 Levetiracetam 1000 mg/Dextrose 110 ml @ 750 mls/hr 1X ONCE IV ; Start 05/22/20 at 15:00; Stop 05/22/20 at 15:08; Status Cancel Levetiracetam 500 mg/Dextrose 105 ml @ 420 mls/hr Q12H IV Last administered on 05/24/20at 03:24; Start 05/23/20 at 03:30; Stop 05/24/20 at 11:19; Status DC Alprazolam (Xanax) 1 mg TID PRN PO ANXIETY / AGITATION Last administered on 05/23/20at 15:23; Start 05/22/20 at 15:30; Stop 05/23/20 at 19:18; Status DC Levothyroxine Sodium (Synthroid) 137 mcg DAILY06 PO Last administered on 05/31/20at 06:06; Start 05/23/20 at 06:00 Enoxaparin Sodium (Lovenox 40mg Syringe) 40 mg Q24H SQ Last administered on 05/30/20 16:42; Start 05/22/20 at 17:00 Levetiracetam 750 mg/Dextrose 107.5 ml @ 440 mls/hr 1X ONCE IV Last administered on 05/22/20at 16:11; Start 05/22/20 at 16:00; Stop 05/22/20 at 1 6:14; Status DC Insulin Human Lispro (HumaLOG) 0-7 UNITS TIDACHC SQ Last administered on 05/30/20at 12:30; Start 05/22/20 at 16:30 Dextrose (Dextrose 50%-Water Syringe) 12.5 gm PRN Q15MIN PRN IV SEE COMMENTS; Start 05/22/20 at 16:15 Psyllium Hydrophilic Mucilloid (Metamucil Fiber Packet) 1 pkt QHS PO Last administered on 05/30/20 21:03; Start 05/22/20 at 21:00 Acetaminophen (Tylenol) 650 mg PRN Q6HRS PRN PO MILD PAIN / TEMP > 100.3'F Last administered on 05/23/20at 17:53; Start 05/22/20 at 16:15 Multi-Ingredient Mouthwash/Gargle (Magic Mouthwash) 10 ml PRN QID PRN PO MOUTH PAIN Last administered on 05/23/20 09:20; Start 05/22/20 at 16:15 Gabapentin (Neurontin) 300 mg TID PO Last administered on 05/27/20at 21:03; Start 05/23/20 at 21:00; Stop 05/28/20 at 09:11; Status DC Risperidone (RisperDAL) 1 mg QHS PO ; Start 05/23/20 at 21:00; Stop 05/24/20 at 17:42; Status DC Clonazepam (KlonoPIN) 0.5 mg PRN Q6HRS PRN PO ANXIETY / AGITATION Last administered on 05/26/20at 19:50; Start 05/23/20 at 19:30 Levetiracetam 750 mg/Dextrose 107.5 ml @ 420 mls/hr Q12H IV ; Start 05/24/20 at 21:00; Stop 05/24/20 at 20:54; Status DC Levetiracetam 1000 mg/Dextrose 110 ml @ 440 mls/hr 1X STAT IV Last administered on 05/24/20at 12:01; Start 05/24/20 at 11:21; Stop 05/24/20 at 11:35; Status DC Gadoterate Meglumine (Dotarem) 15.2 ml 1X ONCE IVP Last administered on 05/24/20at 14:15; Start 05/24/20 at 14:15; Stop 05/24/20 at 14:16; Status DC Sodium Chloride 1,000 ml @ 65 mls/hr [id number] IV Last administered on 05/30/20at 21:03; Start 05/24/20 at 15:45 Lorazepam (Ativan) 1 mg Q6HRS PO Last administered on 05/31/20 06:06; Start 05/24/20 at 18:00 Levetiracetam 750 mg/Dextrose 107.5 ml @ 420 mls/hr Q12H IV Last administered on 05/25/20at 22:24; Start 05/24/20 at 21:00; Stop 05/26/20 at 08:38; Status DC Valproic Acid 500 mg/Dextrose 55 ml @ 55 mls/hr Q12HR IV Last administered on 05/25/20 20:26; Start 05/25/20 at 01:45; Stop 05/26/20 at 08:38; Status DC Levetiracetam (Keppra) 500 mg BID PO Last administered on 05/26/20at 21:02; Start 05/26/20 at 09:00; Stop 05/27/20 at 08:31; Status DC Divalproex Sodium (Depakote Er) 500 mg BID PO Last administered on 05/26/20at 21:02; Start 05/26/20 at 09:00; Stop 05/27/20 at 08:31; Status DC Lorazepam (Ativan Inj) 1 mg PRN Q4HRS PRN IVP ANXIETY / AGITATION Last administered on 05/26/20at 21:02; Start 05/26/20 at 21:00 Divalproex Sodium (Depakote Er) 1,000 mg BID PO Last administered on 05/31/20at 10:10; Start 05/27/20 at 09:00 Levetiracetam (Keppra) 750 mg BID PO Last administered on 05/31/20at 10:10; Start 05/27/20 at 09:00 Risperidone (RisperDAL) 1 mg HS PO Last administered on 05/30/20at 21:05; Start 05/27/20 at 21:00 Levofloxacin/ Dextrose 100 ml @ 100 mls/hr Q24H IV Last administered on 05/28/20at 23:02; Start 05/27/20 at 20:00; Stop 05/29/20 at 12:00; Status DC Levofloxacin (Levaquin) 500 mg QHS PO Last administered on 05/30/20at 21:05; Start 05/29/20 at 21:00 Lactobacillus Rhamnosus (Culturelle) 1 cap BID PO Last administered on 05/31/20at 10:10; Start 05/29/20 at 21:00 Acetaminophen (Tylenol Supp) [address] Last administered on 05/30/20at 00:49; Start 05/30/20 at 01:00; Stop 05/30/20 at 01:01; Status DC Potassium Chloride (Klor-Con) 60 meq 1X ONCE PO Last administered on 05/30/20at 11:44; Start 05/30/20 at 11:00; Stop 05/30/20 at 11:01; Status DC Active Scripts Active Keflex (Cephalexin) 500 Mg Capsule 1 Cap PO TID Keflex (Cephalexin) 500 Mg Capsule 500 Mg PO QID 10 Days Reported Metformin Hcl 500 Mg Tablet 500 Mg PO BIDWMEALS [place] Thyroid (Thyroid,Pork) 120 Mg Tablet 120 Mg PO DAILY Alprazolam 1 Mg Tablet 1 Mg PO TID PRN Vital Signs Vital Signs Date Time Temp Pulse Resp B/P (MAP) Pulse Ox O2 Delivery O2 Flow Rate FiO2 05/31/20 10:20 98.3 84 18 147/71 (96) 96 Room Air 98.3 Labs Laboratory Tests Test 05/29/20 12:20 05/29/20 17:01 05/29/20 20:35 05/30/20 00:59 Glucose (Fingerstick) 113 mg/dL (70-99) 146 mg/dL (70-99) 126 mg/dL (70-99) 92 mg/dL (70-99) Test 05/30/20 06:00 05/30/20 07:40 05/30/20 09:35 8/30/20 11:46 Glucose (Fingerstick) 95 mg/dL (70-99) 99 mg/dL (70-99) 168 mg/dL (70-99) White Blood Count 5.8 x10^3/uL (4.0-11.0) Red Blood Count 3.75 x10^6/uL (3.50-5.40) Hemoglobin 11.1 g/dL (12.0-15.5) Hematocrit 32.2 % (36.0-47.0) Mean Corpuscular Volume 86 fL (79-100) Mean Corpuscular Hemoglobin 30 pg (25-35) Mean Corpuscular Hemoglobin Concent 35 g/dL (31-37) Red Cell Distribution Width 12.9 % (11.5-14.5) Platelet Count 292 x10^3/uL (140-400) Neutrophils (%) (Auto) 74 % (31-73) Lymphocytes (%) (Auto) 15 % (24-48) Monocytes (%) (Auto) 9 % (0-9) Eosinophils (%) (Auto) 2 % (0-3) Basophils (%) (Auto) 0 % (0-3) Neutrophils # (Auto) 4.3 x10^3/uL (1.8-7.7) Lymphocytes # (Auto) 0.9 x10^3/uL (1.0-4.8) Monocytes # (Auto) 0.5 x10^3/uL (0.0-1.1) Eosinophils # (Auto) 0.1 x10^3/uL (0.0-0.7) Basophils # (Auto) 0.0 x10^3/uL (0.0-0.2) Sodium Level 147 mmol/L (136-145) Potassium Level 2.5 mmol/L (3.5-5.1) Chloride Level 109 mmol/L (98-107) Carbon Dioxide Level 32 mmol/L (21-32) Anion Gap 6 (6-14) Blood Urea Nitrogen 6 mg/dL (7-20) Creatinine 0.4 mg/dL (0.6-1.0) Estimated GFR (Cockcroft-Gault) 156.5 BUN/Creatinine Ratio 15 (6-20) Glucose Level 106 mg/dL (70-99) Calcium Level 6.9 mg/dL (8.5-10.1) Total Bilirubin 0.3 mg/dL (0.2-1.0) Aspartate Amino Transf (AST/SGOT) 17 U/L (15-37) Alanine Aminotransferase (ALT/SGPT) 21 U/L (14-59) Alkaline Phosphatase 42 U/L (46-116) Total Protein 5.2 g/dL (6.4-8.2) Albumin 2.1 g/dL (3.4-5.0) Albumin/Globulin Ratio 0.7 (1.0-1.7) Test 05/30/20 16:43 05/30/20 18:00 05/30/20 20:52 05/31/20 05:50 Glucose (Fingerstick) 118 mg/dL (70-99) 136 mg/dL (70-99) Potassium Level 3.4 mmol/L (3.5-5.1) 3.0 mmol/L (3.5-5.1) White Blood Count 4.6 x10^3/uL (4.0-11.0) Red Blood Count 3.86 x10^6/uL (3.50-5.40) Hemoglobin 11.6 g/dL (12.0-15.5) Hematocrit 33.2 % (36.0-47.0) Mean Corpuscular Volume 86 fL (79-100) Mean Corpuscular Hemoglobin 30 pg (25-35) Mean Corpuscular Hemoglobin Concent 35 g/dL (31-37) Red Cell Distribution Width 12.9 % (11.5-14.5) Platelet Count 305 x10^3/uL (140-400) Neutrophils (%) (Auto) 70 % (31-73) Lymphocytes (%) (Auto) 20 % (24-48) Monocytes (%) (Auto) 9 % (0-9) Eosinophils (%) (Auto) 1 % (0-3) Basophils (%) (Auto) 0 % (0-3) Neutrophils # (Auto) 3.2 x10^3/uL (1.8-7.7) Lymphocytes # (Auto) 0.9 x10^3/uL (1.0-4.8) Monocytes # (Auto) 0.4 x10^3/uL (0.0-1.1) Eosinophils # (Auto) 0.1 x10^3/uL (0.0-0.7) Basophils # (Auto) 0.0 x10^3/uL (0.0-0.2) Sodium Level 144 mmol/L (136-145) Chloride Level 107 mmol/L (98-107) Carbon Dioxide Level 30 mmol/L (21-32) Anion Gap 7 (6-14) Blood Urea Nitrogen 6 mg/dL (7-20) Creatinine 0.3 mg/dL (0.6-1.0) Estimated GFR (Cockcroft-Gault) 218.1 Glucose Level 111 mg/dL (70-99) Calcium Level 7.3 mg/dL (8.5-10.1) Test 05/31/20 08:07 05/31/20 11:36 Glucose (Fingerstick) 112 mg/dL (70-99) 135 mg/dL (70-99) Laboratory Tests Test 05/30/20 11:46 05/30/20 16:43 05/30/20 18:00 05/30/20 20:52 Glucose (Fingerstick) 168 mg/dL (70-99) 118 mg/dL (70-99) 136 mg/dL (70-99) Potassium Level 3.4 mmol/L (3.5-5.1) Test 05/31/20 05:50 05/31/20 08:07 05/31/20 11:36 White Blood Count 4.6 x10^3/uL (4.0-11.0) Red Blood Count 3.86 x10^6/uL (3.50-5.40) Hemoglobin 11.6 g/dL (12.0-15.5) Hematocrit 33.2 % (36.0-47.0) Mean Corpuscular Volume 86 fL (79-100) Mean Corpuscular Hemoglobin 30 pg (25-35) Mean Corpuscular Hemoglobin Concent 35 g/dL (31-37) Red Cell Distribution Width 12.9 % (11.5-14.5) Platelet Count 305 x10^3/uL (140-400) Neutrophils (%) (Auto) 70 % (31-73) Lymphocytes (%) (Auto) 20 % (24-48) Monocytes (%) (Auto) 9 % (0-9) Eosinophils (%) (Auto) 1 % (0-3) Basophils (%) (Auto) 0 % (0-3) Neutrophils # (Auto) 3.2 x10^3/uL (1.8-7.7) Lymphocytes # (Auto) 0.9 x10^3/uL (1.0-4.8) Monocytes # (Auto) 0.4 x10^3/uL (0.0-1.1) Eosinophils # (Auto) 0.1 x10^3/uL (0.0-0.7) Basophils # (Auto) 0.0 x10^3/uL (0.0-0.2) Sodium Level 144 mmol/L (136-145) Potassium Level 3.0 mmol/L (3.5-5.1) Chloride Level 107 mmol/L (98-107) Carbon Dioxide Level 30 mmol/L (21-32) Anion Gap 7 (6-14) Blood Urea Nitrogen 6 mg/dL (7-20) Creatinine 0.3 mg/dL (0.6-1.0) Estimated GFR (Cockcroft-Gault) 218.1 Glucose Level 111 mg/dL (70-99) Calcium Level 7.3 mg/dL (8.5-10.1) Glucose (Fingerstick) 112 mg/dL (70-99) 135 mg/dL (70-99) Allergies Allergies Coded Allergies Type Severity Reaction Last Updated Verified codeine Allergy Mild Nausea and Vomiting 05/25/20 Yes Disposition/Orders: D/C to Home w/ HH Justicifation of Admission Dx: Justifications for Admission: Justification of Admission Dx: Yes CONRADO ASTUDILLO MD May 31, 2020 11:44
[2020-05-31] MEDS ORDERED: FLUO20CA20 PO (11:50)
[2020-05-31] MEDS ORDERED: DIVA500T4 PO (11:50)
[2020-05-31] MEDS ORDERED: INSU100V35 SQ (11:50)
[2020-05-31] MEDS ORDERED: RISP1TAB43 PO (11:50)
[2020-05-31] MEDS ORDERED: LACT1CAP19 PO (11:50)
[2020-05-31] MEDS ORDERED: LEVO137T3 PO (11:50)
[2020-05-31] MEDS ORDERED: LEVE500T56 PO (11:50)
[2020-05-31] MEDS ORDERED: ACET325T9 PO (11:50)
[2020-05-31] MEDS ORDERED: PSYL3.4P PO (11:50)
[2020-05-31] MEDS ORDERED: LEVO500T59 PO (11:50)
[2020-05-31] MEDS ORDERED: TRAZ-123 PO (11:50)
[2020-05-31] MEDS ORDERED: LORA-434 PO (11:50)
--- NOTE | 2020-05-31 11:53 | SNU/HH DC ---
DISCHARGE WITH HOME HEALTH DISCHARGE INFORMATION: Final Diagnosis: Problems Medical Problems: (1) Seizures Status: Acute Condition on Discharge: Stable CODE STATUS: Code Status: Full HOME HEALTH: Face to Face: I certify this patient is under my care and that I, or a nurse practitioner or physician's assistant elementary teacher working with me, had a face to face encounter that meets the physician face to face encounter requirements with this patient on []. Medical Complications: Other (seizures) Snf For: Assess Cardiopulm Status, Assess & Educate Safety, Assess/Skilled Observatio, Diabetic Care RN For Eval/Treatment: Yes Physical Therapy For: Evalulation/Treatment Occupational Therapy For: Evaluation/Treatment Speech Language Pathology For: Evaluation/Treatment Home Health Aide For: Self-care RESIDENCE LIFE COORDINATOR For: Community Resources Pt Meets Homebound Status: Poor coordination w/ amb. POST DISCHARGE ORDERS: Activity Instructions for Disc: Activity as tolerated DIET AFTER DISCHARGE: ADA CHECKS AFTER DISCHARGE: Checks after discharge: Check blood press - daily FOLLOW-UP: PCP to follow Home Health: today Follow up with: PCP THIS WEEK Follow Up With: NEUROLOGY SOON TREATMENT/EQUIPMENT ORDERS: Adaptive Equipment Issued: Raised toilet seat w/arms CERTIFICATION STATEMENT: Certification Statement: Certification Statement: Based on the above finding, I certify that this patient is confined to the home and needs intermittent shelter care, physical therapy and/or speech therapy, or continues to need occupational therapy.~ This patient is under my care, and I have initiated the establishment of the plan of care.~ This patient will be followed by myself or a community physician who will periodically review the plan of care. Home Meds Active Scripts Levothyroxine Sodium (LEVOTHYROXINE SODIUM) 137 Mcg Tablet, 137 MCG PO DAILY06 for thyroid for 30 Days, #30 TAB Prov:CONRADO ASTUDILLO MD 05/31/20 Insulin Lispro (Admelog) 100 Unit/1 Ml Vial, 0 UNITS SQ TIDACHC for diabetes for 30 Days, #2 EACH Prov:CONRADO ASTUDILLO MD 05/31/20 Lactobacillus Rhamnosus Gg (CULTURELLE) 1 Each Cap.sprink, 1 CAP PO BID for supplement for 30 Days, #60 CAP Prov:CONRADO ASTUDILLO MD 05/31/20 Psyllium Husk/Aspartame (METAMUCIL FIBER SINGLES PACKET) 3.4 Gm Powd.pack, 1 PKT PO QHS for stools for 30 Days, #30 PKT Prov:CONRADO ASTUDILLO MD 05/31/20 Lorazepam (ATIVAN) 1 Mg Tablet, 1 MG PO Q6HRS for anxiety for 7 Days, #20 TAB Prov:CONRADO ASTUDILLO MD 05/31/20 Risperidone (RISPERDAL) 1 Mg Tablet, 1 MG PO HS for mood for 30 Days, #30 TAB Prov:CONRADO ASTUDILLO MD 05/31/20 Trazodone Hcl (TRAZODONE HCL) 100 Mg Tablet, 100 MG PO HS for mood for 30 Days, #30 TAB Prov:CONRADO ASTUDILLO MD 05/31/20 Fluoxetine Hcl (FLUOXETINE HCL) 20 Mg Capsule, 40 MG PO DAILYWBKFT for mood for 30 Days, #60 CAP Prov:CONRADO ASTUDILLO MD 05/31/20 Levetiracetam (KEPPRA) 500 Mg Tablet, 750 MG PO BID for seizures for 30 Days, #90 TAB Prov:CONRADO ASTUDILLO MD 05/31/20 Divalproex Sodium (DEPAKOTE ER) 500 Mg Tab.er.24h, 1000 MG PO BID for seizures for 30 Days, #120 TAB.SR Prov:CNORADO ASTUDILLO MD 05/31/20 Acetaminophen (TYLENOL) 325 Mg Tablet, 650 MG PO PRN Q6HRS PRN for MILD PAIN / TEMP > 100.3'F for 30 Days, #60 TAB Prov:CONRADO ASTUDILLO MD 05/31/20 Levofloxacin (LEVAQUIN) 500 Mg Tablet, 500 MG PO QHS for uti for 7 Days, #7 TAB Prov:CONRADO ASTUDILLO MD 05/31/20 Discontinued Reported Medications Metformin Hcl (METFORMIN HCL) 500 Mg Tablet, 500 MG PO BIDWMEALS for ANTI- DIABETIC, TAB 0 Refills 05/04/14 Thyroid,Pork (ARMOUR THYROID) 120 Mg Tablet, 120 MG PO DAILY 05/04/14 Alprazolam (ALPRAZOLAM) 1 Mg Tablet, 1 MG PO TID PRN for ANXIETY / AGITATION, #2 TAB 0 Refills 05/04/14 Discontinued Scripts Cephalexin (KEFLEX) 500 Mg Capsule, 1 CAP PO TID, #30 CAP Prov:CHETAN VASQUEZ APRN 03/11/18 Cephalexin (KEFLEX) 500 Mg Capsule, 500 MG PO QID for 10 Days, CAP Prov:NICHOL DENTON MD 09/04/16 CONRADO ASTUDILLO MD May 31, 2020 11:53
[2020-05-31 14:27] VITALS: BP 134/69
--- NOTE | 2020-05-31 15:38 | NUR ---
dc instructions reviewed with pt, son and . zachary, marlen and tele dc'd. discharge instructions, education materials sent with pt. rx sent electronically except for ativan that was hard copy given to .
== END 2020-05-31 15:53 | disposition home health service (06) | DRG 871 ==
LOC: ER 11:00 → 2 NORTH 12:49
PROVIDERS: ADMIT Internal Medicine; ATTEND Internal Medicine
DX: A41.9 Sepsis, unspecified organism (principal); G93.41 Metabolic encephalopathy; E87.1 Hypo-osmolality and hyponatremia; F13.239 Sedative, hypnotic or anxiolytic dependence with withdrawal, unspecified; F33.1 Major depressive disorder, recurrent, moderate; N39.0 Urinary tract infection, site not specified; R45.851 Suicidal ideations; C73 Malignant neoplasm of thyroid gland; E11.9 Type 2 diabetes mellitus without complications; E86.1 Hypovolemia; E87.6 Hypokalemia; E89.0 Postprocedural hypothyroidism; F41.0 Panic disorder [episodic paroxysmal anxiety]; F41.1 Generalized anxiety disorder; F41.8 Other specified anxiety disorders; G40.409 Other generalized epilepsy and epileptic syndromes, not intractable, without status epilepticus; I10 Essential (primary) hypertension; Z79.899 Other long term (current) drug therapy; Z82.49 Family history of ischemic heart disease and other diseases of the circulatory system; Z85.850 Personal history of malignant neoplasm of thyroid; Z90.710 Acquired absence of both cervix and uterus; Z91.14 Patient's other noncompliance with medication regimen; Z20.828 Contact with and (suspected) exposure to other viral communicable diseases
CPT/HCPCS: 36415; 70450; 70553; 71045; 80048; 80053; 80164; 80177; 80307; 81001; 82565; 82962; 83735; 84132; 84439; 84443; 84480; 84484; 85007; 85025; 85049; 85610; 85730; 87040; 87077; 87086; 87186; 93005; 95816; 96374; 96375; 96376; 99285; A9575; G0480; J1650; J1815; J1953; J1956; J2060; J2405; J3490; J7030; J7060; P9612; 92526-GN; 92610-GN; 97110-GP; 97116-GP; 97530-GO; 97530-GP; 97535-GO; G0378; U0003-CS